=== PATIENT | male | born 1950 ===

== ENCOUNTER 2018-06-16 06:42 | Inpatient (IN) ==
--- NOTE | 2018-06-16 06:48 | ED ---
HPI General Chief Complaint: STEMI Alert Stated Complaint: Stemi Time Seen by Provider: 06/16/18 06:45 Source: patient and EMS Mode of arrival: EMS History of Present Illness HPI narrative: Chest pain stated that he has been having chest pain for the past week or so. Neighbor called paramedics came to pick them up. Patient was clinical combative with them and because of low O2 sats to try to put a CPAP mask but he was not letting them place it due to being claustrophobic. On arrival blood pressure was 2 6/144 respirations at 28% was placed on a nonrebreather 100% saturation was given nitro sublingual for his elevated BP. Paramedics have given aspirin nitro and Lasix en route. MD complaint: chest pain STEMI Alert: Yes Onset (ago): unknown Time: 06:41 Duration: constant Onset: during rest Pain location: substernal Severity: severe Severity scale (1-10): 10 Quality: ripping Pain radiation: neck Relieving factors: nothing Exacerbating factors: exertion Context: other (chest pain for the past week) Associated symptoms: diaphoresis and dyspnea Treatments prior to arrival chest pain: aspirin, nitroglycerin, oxygen and other (LAsix 70mg IV) Related Data Home Medications Medication Instructions Recorded Confirmed No Known Home Medications 06/16/18 06/16/18 Allergies Allergy/AdvReac Type Severity Reaction Status Date / Time No Known Allergies Allergy Verified 06/16/18 06:46 Review of Systems ROS: all other systems reviewed are negative Cardiovascular Reports chest pain, Reports chest pain at rest, Reports diaphoresis, Reports rapid heart rate, Reports pedal edema and Reports palpitations Respiratory Reports dyspnea on exertion PMFSH History History Provided By: Patient and Engineer And Geologist / EMT Medical History Medical History Sciatica (Acute) Tobacco abuse (Acute) Surgical History Surgical History Right wrist injury (Acute) Family History Family History Other Family history non-contributory Parents Social History Social History Substance History: Past History (Prior alcohol use 1 L of vodka a day, last use 3 or 4 months ago) Second Hand Smoke Exposure: Yes Smoking Status: Current every day smoker Tobacco Type: Cigarettes Packs Per Day: 1 Cigarettes Per Day: 20.0 How Often Do You Have a Drink Containing Alcohol: Never Recent Travel in [facility] within the Last 8 Weeks: No Recent Out of Country Travel within the Last 8 Weeks: No Exam Narrative Exam Narrative: GENERAL: Alert and oriented in severe distress. Pale SKIN: Focused skin assessment . Cold and clammy HEAD: Atraumatic. Normocephalic. EYES: Pupils equal and round. No scleral icterus. No injection or drainage. ENT: No nasal bleeding or discharge. Mucous membranes pink and moist. NECK: Trachea midline. No JVD. CARDIOVASCULAR: Sinus tachycardia with regular rhythm. No murmur appreciated. RESPIRATORY: No accessory muscle use. Tachypneic clear to auscultation. Breath sounds equal bilaterally. GASTROINTESTINAL: Abdomen soft, non-tender, nondistended. Hepatic and splenic margins not palpable. MUSCULOSKELETAL: No obvious deformities. No clubbing. No cyanosis. No edema. NEUROLOGICAL: Awake and alert. No obvious cranial nerve deficits. Motor grossly within normal limits. Normal speech. PSYCHIATRIC: Appropriate mood and affect; insight and judgment normal. Course Hospital Course: Patient arrived at 641 reviewed the EKG was called a STEMI alertThere is a troponin there because I did not see that I did not order one of my interventional cardiology was consulted and patient was taken to the Cartographic Engineer at 6:44. Aspirin Lasix and nitro were given on route. Due to elevated BP here patient was given a sublingual nitro with did not want to delay disposition to Cartographic Engineer and he was transferred immediately upstairs after consulting with Dr. Sadler interventional cardiology. Initial Documented Vital Signs Pulse Rate 130 H 06/16/18 06:44 Respiratory Rate 28 H 06/16/18 06:44 Blood Pressure 206/144 H 06/16/18 06:44 Pulse Oximetry 100 06/16/18 06:44 Last Documented Vital Signs Temperature 98.4 F 06/16/18 15:00 Pulse Rate 88 06/16/18 15:00 Respiratory Rate 20 06/16/18 17:22 Blood Pressure 136/78 06/16/18 15:00 Pulse Oximetry 99 06/16/18 16:10 Critical Care Time Critical Care Time: Yes Total Critical Care Time: 10 Attestation: Aggregate critical care time was 10 minutes. Time to perform other separately billable procedures was not included in the critical care time. My time did not include minutes spent treating any other patients simultaneously or on activities that did not directly contribute to the patient's treatment. The services I provided to this patient were to treat and/or prevent clinically significant deterioration that could result in: Permanent disability loss of current living style and cardiac arrest I provided critical care services requiring my management, as noted below: Chart data review, documentation time, medication orders and management, vital sign assessments/reviewing monitor data, ordering and reviewing lab tests, ordering and interpreting/reviewing x-rays and diagnostic studies, care of the patient and discussion of the patient with the admitting physicians. Medical Decision Making MDM Narrative Medical decision making narrative: STEMI alert taken to the lab within 7 minutes of arrival Medical Screen Exam Complete: Yes Emergency Medical Condition: Yes Medical Records Medical records reviewed: Yes I reviewed the patient's medical records. Lab Data Lab results reviewed: Yes I reviewed the patient's lab results. Result diagrams: 06/16/18 09:40 06/16/18 09:40 Lab Results 06/16/18 06/16/18 06/16/18 Range/Units 06:50 06:50 06:50 WBC 8.3 (4.0-11.0) th/mm3 RBC 4.37 L (4.50-5.90) mil/mm3 Hgb 14.3 (13.0-17.0) gm/dL POC Hgb (Calc) 14.6 (13.0-17.0) g/dL Hct 44.2 (39.0-51.0) % POC Hct 43.0 (39-51.0) % MCV 101.1 H (80.0-100.0) fL MCH 32.7 (27.0-34.0) pg MCHC 32.4 (32.0-36.0) % RDW 14.3 (11.6-17.2) % Plt Count 209 (150-450) th/mm3 MPV 10.6 (7.0-11.0) fL Prelim Diff (Auto) Neut % (Auto) 56.8 (16.0-70.0) % Lymph % (Auto) 32.6 (9.0-44.0) % [place] % (Auto) 6.2 (0.0-8.0) % Eos % (Auto) 3.1 (0.0-4.0) % Baso % (Auto) 1.3 (0.0-2.0) % Neut # (Auto) 4.7 (1.8-7.7) th/mm3 Lymph # (Auto) 2.7 (1.0-4.8) th/mm3 [place] # (Auto) 0.5 (0.0-0.9) th/mm3 Eos # (Auto) 0.3 (0.0-0.4) th/mm3 Baso # (Auto) 0.1 (0.0-0.2) th/mm3 WBC Differential . Seg Neuts % (Manual) (16-70) % Band Neuts % (Manual) (0-6) % Lymphocytes % (Manual) (9-44) % Monocytes % (Manual) (0-8) % Metamyelocytes % (Man) (0-1) % Promyelocytes % (Man) (0-0) % Abs Neuts (Manual) (1.8-7.7) th/mm3 Differential Comment Auto diff final Platelet Estimate (Normal) Platelet Morphology (Normal) Ovalocytes (None) PT 10.4 (9.8-11.6) sec INR 1.0 Ratio APTT 24.1 L (24.3-30.1) sec Puncture Site Patient Temperature O2 Saturation (90-100) % ABG pH (7.380-7.420) ABG pCO2 (38-42) mmHg ABG pO2 (61-120) mmHG ABG HCO3 (22-26) mmol/L ABG O2 Content (12.0-20.0) Vol % ABG Base Excess (-2-2) mmol/L ABG Methemoglobin (0-2) % Hemoglobin (12.0-16.0) G/DL Carboxyhemoglobin (0-4) % O2 Delivery Device Liter Flow L/M Vent Setting Inspired O2 % Critical Value POC Sodium 141 (137-144) mmol/L Sodium (136-145) meq/L POC Potassium 4.6 (3.6-5.0) mmol/L Potassium (3.5-5.1) meq/L POC Chloride 109 (102-111) mmol/L Chloride (98-107) meq/L Carbon Dioxide (21.0-32.0) meq/L Anion Gap (5-15) meq/L POC BUN 26 H (5-21) mg/dL BUN (7-18) mg/dL Creatinine (0.60-1.30) mg/dL POC Creatinine 1.4 H (0.6-1.3) mg/dL Estimated GFR (>89) mL/min POC Glucose 232 H (68-110) mg/dL Random Glucose (74-106) mg/dL Hemoglobin A1c (4.3-6.0) % Lactic Acid (0.4-2.0) mmol/L Calcium 8.2 L (8.5-10.1) mg/dL Phosphorus (2.5-4.9) mg/dL Magnesium 2.3 (1.5-2.5) mg/dL Total Bilirubin (0.2-1.0) mg/dL AST (15-37) U/L ALT (12-78) U/L Alkaline Phosphatase (45-117) U/L Total Creatine Kinase 138 (39-308) U/L CK-MB (CK-2) 2.4 (0.5-3.6) ng/mL Troponin I 0.47 H (0.02-0.05) ng/mL B-Natriuretic Peptide (0-100) pg/mL Total Protein (6.4-8.2) g/dL Albumin (3.4-5.0) g/dL Triglycerides Cholesterol LDL Cholesterol, Calc HDL Cholesterol Cholesterol/HDL Ratio Vitamin B12 TSH Urine Eosinophils (None Seen) /HPF Ur Random Creatinine (27-300) mg/dL Ur Random Sodium meq/L 06/16/18 06/16/18 06/16/18 Range/Units 06:50 07:12 09:40 WBC (4.0-11.0) th/mm3 RBC (4.50-5.90) mil/mm3 Hgb (13.0-17.0) gm/dL POC Hgb (Calc) (13.0-17.0) g/dL Hct (39.0-51.0) % POC Hct (39-51.0) % MCV (80.0-100.0) fL MCH (27.0-34.0) pg MCHC (32.0-36.0) % RDW (11.6-17.2) % Plt Count (150-450) th/mm3 MPV (7.0-11.0) fL Prelim Diff (Auto) Neut % (Auto) (16.0-70.0) % Lymph % (Auto) (9.0-44.0) % [place] % (Auto) (0.0-8.0) % Eos % (Auto) (0.0-4.0) % Baso % (Auto) (0.0-2.0) % Neut # (Auto) (1.8-7.7) th/mm3 Lymph # (Auto) (1.0-4.8) th/mm3 [place] # (Auto) (0.0-0.9) th/mm3 Eos # (Auto) (0.0-0.4) th/mm3 Baso # (Auto) (0.0-0.2) th/mm3 WBC Differential Seg Neuts % (Manual) (16-70) % Band Neuts % (Manual) (0-6) % Lymphocytes % (Manual) (9-44) % Monocytes % (Manual) (0-8) % Metamyelocytes % (Man) (0-1) % Promyelocytes % (Man) (0-0) % Abs Neuts (Manual) (1.8-7.7) th/mm3 Differential Comment Platelet Estimate (Normal) Platelet Morphology (Normal) Ovalocytes (None) PT (9.8-11.6) sec INR Ratio APTT (24.3-30.1) sec Puncture Site Art line Patient Temperature 98.6 O2 Saturation 94 (90-100) % ABG pH 7.23 L* (7.380-7.420) ABG pCO2 45 H (38-42) mmHg ABG pO2 118 (61-120) mmHG ABG HCO3 18 L (22-26) mmol/L ABG O2 Content 17.4 (12.0-20.0) Vol % ABG Base Excess -8.0 L (-2-2) mmol/L ABG Methemoglobin 1.4 (0-2) % Hemoglobin 13.0 (12.0-16.0) G/DL Carboxyhemoglobin 1.2 (0-4) % O2 Delivery Device Nrb Liter Flow 15.00 L/M Vent Setting Inspired O2 % Critical Value Yes POC Sodium (137-144) mmol/L Sodium (136-145) meq/L POC Potassium (3.6-5.0) mmol/L Potassium (3.5-5.1) meq/L POC Chloride (102-111) mmol/L Chloride (98-107) meq/L Carbon Dioxide (21.0-32.0) meq/L Anion Gap (5-15) meq/L POC BUN (5-21) mg/dL BUN (7-18) mg/dL Creatinine (0.60-1.30) mg/dL POC Creatinine (0.6-1.3) mg/dL Estimated GFR (>89) mL/min POC Glucose (68-110) mg/dL Random Glucose (74-106) mg/dL Hemoglobin A1c (4.3-6.0) % Lactic Acid (0.4-2.0) mmol/L Calcium (8.5-10.1) mg/dL Phosphorus (2.5-4.9) mg/dL Magnesium (1.5-2.5) mg/dL Total Bilirubin (0.2-1.0) mg/dL AST (15-37) U/L ALT (12-78) U/L Alkaline Phosphatase (45-117) U/L Total Creatine Kinase (39-308) U/L CK-MB (CK-2) (0.5-3.6) ng/mL Troponin I (0.02-0.05) ng/mL B-Natriuretic Peptide 4327 H (0-100) pg/mL Total Protein (6.4-8.2) g/dL Albumin (3.4-5.0) g/dL Triglycerides Cancelled Cholesterol Cancelled LDL Cholesterol, Calc Cancelled HDL Cholesterol Cancelled Cholesterol/HDL Ratio Cancelled Vitamin B12 TSH Urine Eosinophils (None Seen) /HPF Ur Random Creatinine (27-300) mg/dL Ur Random Sodium meq/L 06/16/18 06/16/18 06/16/18 Range/Units 09:40 09:40 09:40 WBC (4.0-11.0) th/mm3 RBC (4.50-5.90) mil/mm3 Hgb (13.0-17.0) gm/dL POC Hgb (Calc) (13.0-17.0) g/dL Hct (39.0-51.0) % POC Hct (39-51.0) % MCV (80.0-100.0) fL MCH (27.0-34.0) pg MCHC (32.0-36.0) % RDW (11.6-17.2) % Plt Count (150-450) th/mm3 MPV (7.0-11.0) fL Prelim Diff (Auto) Neut % (Auto) (16.0-70.0) % Lymph % (Auto) (9.0-44.0) % [place] % (Auto) (0.0-8.0) % Eos % (Auto) (0.0-4.0) % Baso % (Auto) (0.0-2.0) % Neut # (Auto) (1.8-7.7) th/mm3 Lymph # (Auto) (1.0-4.8) th/mm3 [place] # (Auto) (0.0-0.9) th/mm3 Eos # (Auto) (0.0-0.4) th/mm3 Baso # (Auto) (0.0-0.2) th/mm3 WBC Differential Seg Neuts % (Manual) (16-70) % Band Neuts % (Manual) (0-6) % Lymphocytes % (Manual) (9-44) % Monocytes % (Manual) (0-8) % Metamyelocytes % (Man) (0-1) % Promyelocytes % (Man) (0-0) % Abs Neuts (Manual) (1.8-7.7) th/mm3 Differential Comment Platelet Estimate (Normal) Platelet Morphology (Normal) Ovalocytes (None) PT (9.8-11.6) sec INR Ratio APTT (24.3-30.1) sec Puncture Site Patient Temperature O2 Saturation (90-100) % ABG pH (7.380-7.420) ABG pCO2 (38-42) mmHg ABG pO2 (61-120) mmHG ABG HCO3 (22-26) mmol/L ABG O2 Content (12.0-20.0) Vol % ABG Base Excess (-2-2) mmol/L ABG Methemoglobin (0-2) % Hemoglobin (12.0-16.0) G/DL Carboxyhemoglobin (0-4) % O2 Delivery Device Liter Flow L/M Vent Setting Inspired O2 % Critical Value POC Sodium (137-144) mmol/L Sodium (136-145) meq/L POC Potassium (3.6-5.0) mmol/L Potassium (3.5-5.1) meq/L POC Chloride (102-111) mmol/L Chloride (98-107) meq/L Carbon Dioxide (21.0-32.0) meq/L Anion Gap (5-15) meq/L POC BUN (5-21) mg/dL BUN (7-18) mg/dL Creatinine (0.60-1.30) mg/dL POC Creatinine (0.6-1.3) mg/dL Estimated GFR (>89) mL/min POC Glucose (68-110) mg/dL Random Glucose (74-106) mg/dL Hemoglobin A1c 6.0 (4.3-6.0) % Lactic Acid (0.4-2.0) mmol/L Calcium (8.5-10.1) mg/dL Phosphorus (2.5-4.9) mg/dL Magnesium (1.5-2.5) mg/dL Total Bilirubin (0.2-1.0) mg/dL AST (15-37) U/L ALT (12-78) U/L Alkaline Phosphatase (45-117) U/L Total Creatine Kinase (39-308) U/L CK-MB (CK-2) (0.5-3.6) ng/mL Troponin I (0.02-0.05) ng/mL B-Natriuretic Peptide (0-100) pg/mL Total Protein (6.4-8.2) g/dL Albumin (3.4-5.0) g/dL Triglycerides 97 Cholesterol 128 LDL Cholesterol, Calc 47 HDL Cholesterol 61.6 H Cholesterol/HDL Ratio 2.07 Vitamin B12 Cancelled 362 TSH Cancelled 3.290 Urine Eosinophils (None Seen) /HPF Ur Random Creatinine (27-300) mg/dL Ur Random Sodium meq/L 06/16/18 06/16/18 06/16/18 Range/Units 09:40 09:40 09:40 WBC 16.5 H D (4.0-11.0) th/mm3 RBC 4.29 L (4.50-5.90) mil/mm3 Hgb 14.1 (13.0-17.0) gm/dL POC Hgb (Calc) (13.0-17.0) g/dL Hct 41.9 (39.0-51.0) % POC Hct (39-51.0) % MCV 97.7 (80.0-100.0) fL MCH 32.9 (27.0-34.0) pg MCHC 33.7 (32.0-36.0) % RDW 13.9 (11.6-17.2) % Plt Count 221 (150-450) th/mm3 MPV 10.5 (7.0-11.0) fL Prelim Diff (Auto) Slide review pending Neut % (Auto) 83.5 H (16.0-70.0) % Lymph % (Auto) 8.7 L (9.0-44.0) % [place] % (Auto) 7.3 (0.0-8.0) % Eos % (Auto) 0.2 (0.0-4.0) % Baso % (Auto) 0.3 (0.0-2.0) % Neut # (Auto) 13.8 H (1.8-7.7) th/mm3 Lymph # (Auto) 1.4 (1.0-4.8) th/mm3 [place] # (Auto) 1.2 H (0.0-0.9) th/mm3 Eos # (Auto) 0.0 (0.0-0.4) th/mm3 Baso # (Auto) 0.1 (0.0-0.2) th/mm3 WBC Differential Manual diff final Seg Neuts % (Manual) 84 H (16-70) % Band Neuts % (Manual) 1 (0-6) % Lymphocytes % (Manual) 5 L (9-44) % Monocytes % (Manual) 8 (0-8) % Metamyelocytes % (Man) 1 (0-1) % Promyelocytes % (Man) 1 H (0-0) % Abs Neuts (Manual) 14.4 H (1.8-7.7) th/mm3 Differential Comment . Platelet Estimate Normal (Normal) Platelet Morphology Clumped H (Normal) Ovalocytes 1+ H (None) PT (9.8-11.6) sec INR Ratio APTT (24.3-30.1) sec Puncture Site Patient Temperature O2 Saturation (90-100) % ABG pH (7.380-7.420) ABG pCO2 (38-42) mmHg ABG pO2 (61-120) mmHG ABG HCO3 (22-26) mmol/L ABG O2 Content (12.0-20.0) Vol % ABG Base Excess (-2-2) mmol/L ABG Methemoglobin (0-2) % Hemoglobin (12.0-16.0) G/DL Carboxyhemoglobin (0-4) % O2 Delivery Device Liter Flow L/M Vent Setting Inspired O2 % Critical Value POC Sodium (137-144) mmol/L Sodium 138 (136-145) meq/L POC Potassium (3.6-5.0) mmol/L Potassium 3.8 (3.5-5.1) meq/L POC Chloride (102-111) mmol/L Chloride 104 (98-107) meq/L Carbon Dioxide 23.8 (21.0-32.0) meq/L Anion Gap 10 (5-15) meq/L POC BUN (5-21) mg/dL BUN 24 H (7-18) mg/dL Creatinine 1.67 H (0.60-1.30) mg/dL POC Creatinine (0.6-1.3) mg/dL Estimated GFR 36 L (>89) mL/min POC Glucose (68-110) mg/dL Random Glucose 192 H (74-106) mg/dL Hemoglobin A1c (4.3-6.0) % Lactic Acid 3.0 H (0.4-2.0) mmol/L Calcium 8.3 L (8.5-10.1) mg/dL Phosphorus 4.4 (2.5-4.9) mg/dL Magnesium 2.1 (1.5-2.5) mg/dL Total Bilirubin 0.5 (0.2-1.0) mg/dL AST 36 (15-37) U/L ALT 21 (12-78) U/L Alkaline Phosphatase 86 (45-117) U/L Total Creatine Kinase (39-308) U/L CK-MB (CK-2) (0.5-3.6) ng/mL Troponin I (0.02-0.05) ng/mL B-Natriuretic Peptide (0-100) pg/mL Total Protein 7.6 (6.4-8.2) g/dL Albumin 3.1 L (3.4-5.0) g/dL Triglycerides Cholesterol LDL Cholesterol, Calc HDL Cholesterol Cholesterol/HDL Ratio Vitamin B12 TSH Urine Eosinophils (None Seen) /HPF Ur Random Creatinine (27-300) mg/dL Ur Random Sodium meq/L 09/06/16/18 06/16/18 Range/Units 10:10 12:10 15:00 WBC (4.0-11.0) th/mm3 RBC (4.50-5.90) mil/mm3 Hgb (13.0-17.0) gm/dL POC Hgb (Calc) (13.0-17.0) g/dL Hct (39.0-51.0) % POC Hct (39-51.0) % MCV (80.0-100.0) fL MCH (27.0-34.0) pg MCHC (32.0-36.0) % RDW (11.6-17.2) % Plt Count (150-450) th/mm3 MPV (7.0-11.0) fL Prelim Diff (Auto) Neut % (Auto) (16.0-70.0) % Lymph % (Auto) (9.0-44.0) % [place] % (Auto) (0.0-8.0) % Eos % (Auto) (0.0-4.0) % Baso % (Auto) (0.0-2.0) % Neut # (Auto) (1.8-7.7) th/mm3 Lymph # (Auto) (1.0-4.8) th/mm3 [place] # (Auto) (0.0-0.9) th/mm3 Eos # (Auto) (0.0-0.4) th/mm3 Baso # (Auto) (0.0-0.2) th/mm3 WBC Differential Seg Neuts % (Manual) (16-70) % Band Neuts % (Manual) (0-6) % Lymphocytes % (Manual) (9-44) % Monocytes % (Manual) (0-8) % Metamyelocytes % (Man) (0-1) % Promyelocytes % (Man) (0-0) % Abs Neuts (Manual) (1.8-7.7) th/mm3 Differential Comment Platelet Estimate (Normal) Platelet Morphology (Normal) Ovalocytes (None) PT (9.8-11.6) sec INR Ratio APTT (24.3-30.1) sec Puncture Site Beth Campos Patient Temperature 98.6 98.6 O2 Saturation 97 96 (90-100) % ABG pH 7.23 L* 7.34 L (7.380-7.420) ABG pCO2 53 H* 40 (38-42) mmHg ABG pO2 359 H 129 H (61-120) mmHG ABG HCO3 21 L 21 L (22-26) mmol/L ABG O2 Content 19.7 17.8 (12.0-20.0) Vol % ABG Base Excess -4.9 L -3.9 L (-2-2) mmol/L ABG Methemoglobin 1.4 1.6 (0-2) % Hemoglobin 13.8 13.1 (12.0-16.0) G/DL Carboxyhemoglobin 0.5 0.8 (0-4) % O2 Delivery Device Ventilator Ventilator Liter Flow L/M Vent Setting See comments See comments Inspired O2 100 60 % Critical Value Yes No POC Sodium (137-144) mmol/L Sodium (136-145) meq/L POC Potassium (3.6-5.0) mmol/L Potassium (3.5-5.1) meq/L POC Chloride (102-111) mmol/L Chloride (98-107) meq/L Carbon Dioxide (21.0-32.0) meq/L Anion Gap (5-15) meq/L POC BUN (5-21) mg/dL BUN (7-18) mg/dL Creatinine (0.60-1.30) mg/dL POC Creatinine (0.6-1.3) mg/dL Estimated GFR (>89) mL/min POC Glucose (68-110) mg/dL Random Glucose (74-106) mg/dL Hemoglobin A1c (4.3-6.0) % Lactic Acid (0.4-2.0) mmol/L Calcium (8.5-10.1) mg/dL Phosphorus (2.5-4.9) mg/dL Magnesium (1.5-2.5) mg/dL Total Bilirubin (0.2-1.0) mg/dL AST (15-37) U/L ALT (12-78) U/L Alkaline Phosphatase (45-117) U/L Total Creatine Kinase (39-308) U/L CK-MB (CK-2) (0.5-3.6) ng/mL Troponin I (0.02-0.05) ng/mL B-Natriuretic Peptide (0-100) pg/mL Total Protein (6.4-8.2) g/dL Albumin (3.4-5.0) g/dL Triglycerides Cholesterol LDL Cholesterol, Calc HDL Cholesterol Cholesterol/HDL Ratio Vitamin B12 TSH Urine Eosinophils (None Seen) /HPF Ur Random Creatinine 39 (27-300) mg/dL Ur Random Sodium 93 meq/L 06/16/18 06/16/18 Range/Units 15:00 16:11 WBC (4.0-11.0) th/mm3 RBC (4.50-5.90) mil/mm3 Hgb (13.0-17.0) gm/dL POC Hgb (Calc) (13.0-17.0) g/dL Hct (39.0-51.0) % POC Hct (39-51.0) % MCV (80.0-100.0) fL MCH (27.0-34.0) pg MCHC (32.0-36.0) % RDW (11.6-17.2) % Plt Count (150-450) th/mm3 MPV (7.0-11.0) fL Prelim Diff (Auto) Neut % (Auto) (16.0-70.0) % Lymph % (Auto) (9.0-44.0) % [place] % (Auto) (0.0-8.0) % Eos % (Auto) (0.0-4.0) % Baso % (Auto) (0.0-2.0) % Neut # (Auto) (1.8-7.7) th/mm3 Lymph # (Auto) (1.0-4.8) th/mm3 [place] # (Auto) (0.0-0.9) th/mm3 Eos # (Auto) (0.0-0.4) th/mm3 Baso # (Auto) (0.0-0.2) th/mm3 WBC Differential Seg Neuts % (Manual) (16-70) % Band Neuts % (Manual) (0-6) % Lymphocytes % (Manual) (9-44) % Monocytes % (Manual) (0-8) % Metamyelocytes % (Man) (0-1) % Promyelocytes % (Man) (0-0) % Abs Neuts (Manual) (1.8-7.7) th/mm3 Differential Comment Platelet Estimate (Normal) Platelet Morphology (Normal) Ovalocytes (None) PT (9.8-11.6) sec INR Ratio APTT (24.3-30.1) sec Puncture Site Patient Temperature O2 Saturation (90-100) % ABG pH (7.380-7.420) ABG pCO2 (38-42) mmHg ABG pO2 (61-120) mmHG ABG HCO3 (22-26) mmol/L ABG O2 Content (12.0-20.0) Vol % ABG Base Excess (-2-2) mmol/L ABG Methemoglobin (0-2) % Hemoglobin (12.0-16.0) G/DL Carboxyhemoglobin (0-4) % O2 Delivery Device Liter Flow L/M Vent Setting Inspired O2 % Critical Value POC Sodium (137-144) mmol/L Sodium (136-145) meq/L POC Potassium (3.6-5.0) mmol/L Potassium (3.5-5.1) meq/L POC Chloride (102-111) mmol/L Chloride (98-107) meq/L Carbon Dioxide (21.0-32.0) meq/L Anion Gap (5-15) meq/L POC BUN (5-21) mg/dL BUN (7-18) mg/dL Creatinine (0.60-1.30) mg/dL POC Creatinine (0.6-1.3) mg/dL Estimated GFR (>89) mL/min POC Glucose 136 H (68-110) mg/dL Random Glucose (74-106) mg/dL Hemoglobin A1c (4.3-6.0) % Lactic Acid (0.4-2.0) mmol/L Calcium (8.5-10.1) mg/dL Phosphorus (2.5-4.9) mg/dL Magnesium (1.5-2.5) mg/dL Total Bilirubin (0.2-1.0) mg/dL AST (15-37) U/L ALT (12-78) U/L Alkaline Phosphatase (45-117) U/L Total Creatine Kinase (39-308) U/L CK-MB (CK-2) (0.5-3.6) ng/mL Troponin I (0.02-0.05) ng/mL B-Natriuretic Peptide (0-100) pg/mL Total Protein (6.4-8.2) g/dL Albumin (3.4-5.0) g/dL Triglycerides Cholesterol LDL Cholesterol, Calc HDL Cholesterol Cholesterol/HDL Ratio Vitamin B12 TSH Urine Eosinophils None seen (None Seen) /HPF Ur Random Creatinine (27-300) mg/dL Ur Random Sodium meq/L Imaging Data Radiologist's impression: Abdomen/Bladder Ultrasound 06/16/18 00:00 CONCLUSION: The kidneys are at the lower limits for normal in size. Otherwise, no abnormality is identified. There is no hydronephrosis. Chest X-Ray 06/16/18 00:00 CONCLUSION: 1. Cardiomegaly with pulmonary edema pattern. Chest X-Ray 06/16/18 10:19 CONCLUSION: 1. ETT in good position. 2. Left IJ central line with tip in the very proximal SVC. No pneumothorax. 3. Persistent pulmonary edema pattern. ECG Data EKG Prior to Arrival: Yes Attestation: I personally reviewed and interpreted this ECG as follows: Interpretation: Elevation NE on anterior leads V3 V4. Suggestive of anterior NE. Discharge Plan Discharge Disposition Patient Disposition: 30 Still Patient Discharge Condition Condition: Critical Discharge Details Diagnosis: ST elevation (STEMI) myocardial infarction Physicians Team ED Provider: Rivas Zimmerman Primary Care Provider: Primary Care Physici,No Attending Provider: Lester Sadler Other Providers: Lester Sadler ; Giovany Wilkes ; Diane Ingram Status ED Status: Left Department Discharge Information Discharge Date/Time: 06/16/18 07:21
[2018-06-16] MEDS ORDERED: Sod Chloride 0.9% Inj 1,000 ML IV.SIG SCH (07:00)
[2018-06-16 07:02] LABS: Baso # (Auto) 0.1 th/mm3 (0.0-0.2); Baso % (Auto) 1.3 % (0.0-2.0); Eos # (Auto) 0.3 th/mm3 (0.0-0.4); Eos % (Auto) 3.1 % (0.0-4.0); Hematocrit 44.2 % (39.0-51.0); Hemoglobin 14.3 gm/dL (13.0-17.0); Lymph # (Auto) 2.7 th/mm3 (1.0-4.8); Lymph % (Auto) 32.6 % (9.0-44.0); Mean Corpuscular HGB Conc 32.4 % (32.0-36.0); Mean Corpuscular Hemoglobin 32.7 pg (27.0-34.0); Mean Corpuscular Volume 101.1 fL (80.0-100.0); Mean Platelet Volume 10.6 fL (7.0-11.0); Mono # (Auto) 0.5 th/mm3 (0.0-0.9); Mono % (Auto) 6.2 % (0.0-8.0); Neut # (Auto) 4.7 th/mm3 (1.8-7.7); Neut % (Auto) 56.8 % (16.0-70.0); Platelet Count 209 th/mm3 (150-450); Red Blood Count 4.37 mil/mm3 (4.50-5.90); Red Cell Distribution Width 14.3 % (11.6-17.2); White Blood Count 8.3 th/mm3 (4.0-11.0)
[2018-06-16] MEDS ORDERED: Nitroglycerin Drip Premix 50 MG/250 ML BOTTLE ONE (07:12)
[2018-06-16 07:16] LABS: Activated Partial Thrombo Time 24.1 sec (24.3-30.1); Prothrombin Time 10.4 sec (9.8-11.6)
[2018-06-16] MEDS ORDERED: Clevidipine Inj 25 MG/50 ML VIAL ONE (07:21)
[2018-06-16 07:27] LABS: Calcium 8.2 mg/dL (8.5-10.1); Troponin I 0.47 ng/mL (0.02-0.05)
[2018-06-16 07:28] LABS: Creatine Kinase 138 U/L (39-308); Magnesium 2.3 mg/dL (1.5-2.5)
[2018-06-16 07:31] LABS: ABG PCO2 45 mmHg (38-42); ABG PO2 118 mmHG (61-120)
[2018-06-16 07:40] LABS: Creatine Kinase MB 2.4 ng/mL (0.5-3.6)
--- NOTE | 2018-06-16 08:16 | CATHPROC ---
Compression Kinetics HIS Report Study Information Study Number Admission Scheduled Start Study Start [id number] Jun 16 2018 6:42AM 06/16/2018 Jun 16 2018 6:56AM [place] [facility] Cardiac Catheterization Admit Source Facility Department Emergency department [facility] - Buyer Broker Physician and Clinical Staff Initial Lester Salcedo Petrol Tanker Driverjosue Moran RN, Rodriguez Petrol Tanker DriverAlexandru Moctezuma,YAEL Recorder Bessy Dey,RT(R) Scrub Dionna Menjivar,RT(R) Procedures Performed Procedure Location (Site) Vessel Name Angiogram LV LV Ventricle Coronary Angiograms LCA Left Coronary Coronary Angiograms RCA Right Coronary L Heart Cath Wire insertion Fem Art (right) Femoral Art Equipment Time Chair Description Size Mfg Part Number Used/Scraped [id number] 07:29 [employer] WIRE, ASAHI GRANDSLAM 180CM 180CM Used *[id number] WIRE, BALANCE MIDDLEWEIGHT [id number] 07:23 R[employer]RIGUEZ [employer] 190CM Used 190CM *[id number] TRANSDUCER, TRUWAVE [id number] 07:02 GRANADOS MARTIN * Used W/STOCKCOCK *[id number] [id number] *[id number] [id number] *[id number] [id number] *[id number] PIGTAIL ANG. 145 INFINITI 534-652S CATHETER *[id number] PIGTAIL ANG. 145 INFINITI 534-652S CATHETER *[id number] *[id number] 07:52 DAIG/ST. AMARI MEDICAL ANGIOSEAL, FR6 VIP FR 6 Used *[id number] 07:02 Shopping Buddy BLANKET,WARM AIR CCL * Used *[id number] 07:02 Shopping Buddy PACK, CCL CUSTOM * Used *[id number] 07:02 DermApproved PACER PEN, SKIN DUAL W/ RULER * Used *[id number] 07:32 MEDTRONIC BALLOON, 2.5 X 12MM EUPHORA 12MM Used *[id number] 07:02 ReactX MEDICAL SHEATH, FR6.5 PRELUDE 11CM FR 6.5 038ACT Used *[id number] 07:02 ReactX MEDICAL WIRE, 3MMJ .035 180CM 180CM Used *[id number] 07:02 NAMIC MANIFOLD, 4 PORT * Used *[id number] 07:02 NYCOMED OMNIPAQUE, 350 MG, 150ML 150ML [id number] Used 07:50 NYCOMED OMNIPAQUE, 350 MG, 50ML 50ML [id number] Used Equipment Model, Serial, Lot Number and Expiration Data Description Model Number Serial Number Lot Number Expiration Date LISSA NAJERA [id number] 10-21-2018 History: Allergies Allergy Reaction No Known Allergies History: Other Current Smoker Yes Labs Hgb (g/dl) Hct (%) RBC (MIL/MM3) WBC (l/cumm) Platelets (thousands) 11.60-17.00 35.00-51.00 4.00-5.90 4.00-11.00 150.00-450.00 14.3 42.2 4.3 8.3 209 Glucose (mg/dl) BUN (mg/dl) Creatinine (mg/dl) BUN:Creatinine (1:x) 74.00-106.00 7.00-18.00 0.50-1.30 10.00-20.00 232 26 1.4 18.6 Na (meq/l) K (meq/l) 136.00-145.00 3.50-5.10 141 4.6 Medication Medication Total Dose (Bolus/Oral) Medication Total Dosage/Unit 1% XYLOCAINE 20 mL ANGIOMAX BOLUS 10.8 mL NTG (TRIDIL) 5 mg Medications (Bolus/Oral) Medication Time Given Dosage/Unit Administered By Reason 1% XYLOCAINE 06/16/2018 7:15:16 AM 20 mL Lester Sadler 20 mL 1% XYLOCAINE given in lab by Lester Sadler in Right Groin via Subcutaneous. Ordered by Lester Sadler. NTG (TRIDIL) 06/16/2018 7:15:33 AM 5 mg Rodriguez Moran RN 5 mg NTG (TRIDIL) given in lab by Rodriguez Moran RN in Left Hand via Peripheral IV. Ordered by Lester Sadler. ANGIOMAX BOLUS 06/16/2018 7:22:50 AM 10.8 mL Rodriguez Moran RN 10.8 mL ANGIOMAX BOLUS given in lab by Rodriguez Moran RN via Peripheral IV. Ordered by Lester Sadler. Medication (Drip) Medication Time Given Dosage/Unit Concentration/Unit Diluent (ml) Solutio n ANGIOMAX DRIP 06/16/2018 7:26:10 AM 1.733 mg/kg/hr 250 mg 50 NaCl .9 1.733 mg/kg/hr ANGIOMAX DRIP given in lab by Rdoriguez Moran RN via Peripheral IV. Pump/Drip Flow = 25.2 ml/hr using NaCl .9 with a concentration of 250 mg in 50 ml. Ordered by Lester Sadler. ANGIOMAX DRIP 06/16/2018 7:48:33 AM 25.2 mL/hr mL 0 STOPPED 25.2 mL/hr ANGIOMAX DRIP STOPPED given in lab by Rodriguez Moran RN. Pump/Drip Flow = 0 ml/hr using [Laly ution Name]. Ordered by Lester Sadler. CLEVIPREX 06/16/2018 7:20:43 AM 2 mg/hr 50 mg 100 2 mg/hr CLEVIPREX given in lab by Rodriguez Moran RN. Pump/Drip Flow = 4 ml/hr using [Solution Name] wit h a concentration of 50 mg in 100 ml. Ordered by Lester Sadler. IV Solutions 06/16/2018 6:58:41 AM 50 mL (IV) NaCl .9 IV Solutions given in lab by Rodriguez Moran RN in Left Hand via Peripheral IV. Pump/Drip Flow using NaC l .9. Initial Case Assessment Cardiovascular Edema Present Skin color Skin Moderate Normal Warm Dry Circulatory - Right Pulses Dorsalis Pedis Femoral 2 2 Scale (0,1,2,3,4,d) Circulatory - Left Pulses Dorsalis Pedis Femoral 2 2 Scale (0,1,2,3,4,d) Neurological State Oriented to time-place- Alert Moves all extremities person Final Case Assessment Cardiovascular HR NIBP 121 143/100 Edema Present Skin color Skin Moderate Normal Warm Dry Circulatory - Right Pulses Dorsalis Pedis Femoral 2 2 Scale (0,1,2,3,4,d) Circulatory - Left Pulses Dorsalis Pedis Femoral 2 2 Scale (0,1,2,3,4,d) Neurological State Oriented to time-place- Alert Moves all extremities person Respiration - General Respiration Rate SpO2 (%) (B/min) 33 99 Chronological Log Time Study Chronological Log 6:54:49 Patient arrived via Bed. 6:58:03 Patient Name, D.O.B, / Armband Verified By R.N. 6:58:08 Presedation assessment performed by Buyer Broker RN. 6:58:11 Patient has been NPO for Less than 6Hrs. Vitals capture started with the following parameters, Patient=Adult, Interval=5 min, Initial Pre tgesf=348 mmHg, 6:58:23 Deflation Rate=5 mmHg, Cuff placed on Right Arm 6:58:35 Skin Breakdown- 6:58:36 Patient Warmer Placed on the Table. 6:58:38 Disposable Defibrillator Pads Placed On Patient. 6:58:39 Lisbeth Prominences Protected 6:58:40 A # 20 IV was noted in the Hand (left). Grade = 0 6:58:41 A # 20 IV was noted in the Hand (right). Grade = 0 6:58:41 IV Solutions given in lab by Rodriguez Moran RN in Left Hand via Peripheral IV. Pump/Drip Flow using NaCl .9. Assessment: Initial Case, Edema=Mod, Color=Normal, Skin = Warm, Dry Right Pulses: Damián Ped=2, Femoral=2 6:58:46 Left Pulses: Damián Ped=2, Femoral=2 Neurological: State=Alert, Ox3, BENTLEY 6:59:51 GE=195 bpm, JSHX=708/128 mmhg, SpO2=95.0 %, Resp=30 B/min 7:00:38 Reference ECG taken 7:01:22 NIBP STAT measurement started. 7:02:09 YD=980 bpm, RTNN=588/149 mmhg, SpO2=89.0 %, Resp=25 B/min 7:02:58 Bilateral groins prepped with 2% chlorhexidine, and draped after a 3 minute waiting time. 7:03:49 MD responded 7:04:09 SR=606 bpm, IBMN=180/144 mmhg, SpO2=94.0 %, Resp=12 B/min 7:09:10 JQ=169 bpm, TNUV=817/140 mmhg, SpO2=97.0 % 7:10:14 MD arrived. 7:11:13 NIBP STAT measurement started. 7:11:58 VT=285 bpm, TVQI=115/143 mmhg, SpO2=97.0 % 7:14:10 VZ=966 bpm, NPGC=078/142 mmhg, SpO2=96.0 %, Resp=37 B/min 7:14:46 Case Start 7:15:16 20 mL 1% XYLOCAINE given in lab by Lester Sadler in Right Groin via Subcutaneous. Ordered by Lester Sadler. 7:15:33 5 mg NTG (TRIDIL) given in lab by Rodriguez Moran RN in Left Hand via Peripheral IV. Ordered by Lester Sadler. 7:16:11 Access site was Right Femoral Artery. 7:16:20 A SHEATH, FR6.5 PRELUDE 11CM FR 6.5 was advanced into the Fem Art (right) using the Percutan eous technique. A 3DRC INFINITI CATHETER FR 6 was advanced over a wire. OMNIPAQUE, 350 MG, 150ML 150ML was used for 7:16:44 injections. Recorded Pressure: Ao, JD=991, Condition=Condition 1 7:17:57 (Aorta) Ao 185/125/154 7:18:36 The RCA was injected and visualized at various angles. OMNIPAQUE, 350 MG, 150ML 150ML used. After removing the current catheter a JR 5.0 INFINITI CATHETER FR 5 was advanced over a WIRE, 3M MJ .035 180CM 7:19:02 180CM. 7:19:09 GD=476 bpm, XYQD=059/136 mmhg, SpO2=97.0 %, Resp=25 B/min 7:19:34 abg drawn 2 mg/hr CLEVIPREX given in lab by Rodriguez Moran RN. Pump/Drip Flow = 4 ml/hr using [Solution Name ] with a 7:20:43 concentration of 50 mg in 100 ml. Ordered by Lester Sadler. 7:21:06 The LCA was injected and visualized at various angles. OMNIPAQUE, 350 MG, 150ML 150ML used. 7:22:50 10.8 mL ANGIOMAX BOLUS given in lab by Rodriguez Moran RN via Peripheral IV. Ordered by Lseter Sadler. After removing the current catheter a XB 4.5 GUIDE CATHETER FR 6 was advanced over a WIRE, 3MMJ .035 180CM 7:22:57 180CM. 7:24:10 AA=158 bpm, UISC=052/131 mmhg, SpO2=97.0 %, Resp=16 B/min 1.733 mg/kg/hr ANGIOMAX DRIP given in lab by Rodriguez Moran RN via Peripheral IV. Pump/Drip Flow = 25.2 ml/hr using 7:26:10 NaCl .9 with a concentration of 250 mg in 50 ml. Ordered by Lester Sadler. 7:27:45 A WIRE, BALANCE MIDDLEWEIGHT 190CM 190CM was inserted via Fem Art (right). 7:27:56 NIBP STAT measurement started. 7:28:32 MP=305 bpm, NDSD=240/97 mmhg, SpO2=97.0 % 7:29:58 A WIRE, ASAHI GRANDSLAM 180CM 180CM was inserted via Fem Art (right). 7:30:25 Wire removed BMW A BALLOON, 2.5 X 12MM EUPHORA 12MM was inserted over WIRE, ASAHI GRANDSLAM 180CM 180CM via the L AD 7:32:19 Prox. 7:34:02 YR=724 bpm, EQEO=848/104 mmhg, SpO2=97.0 %, Resp=33 B/min 7:39:05 OK=588 bpm, FREZ=402/103 mmhg, SpO2=98.0 %, Resp=35 B/min 7:44:08 RN=006 bpm, JBVF=542/102 mmhg, SpO2=99.0 %, Resp=29 B/min 7:46:28 Balloon Removed. 7:46:58 Catheter was removed 7:47:06 Wire removed A PIGTAIL ANG. 145 INFINITI CATHETER FR 6 was advanced over a wire. OMNIPAQUE, 350 MG, 150ML 150 ML was 7:47:27 used for injections. 25.2 mL/hr ANGIOMAX DRIP STOPPED given in lab by Rodriguez Moran RN. Pump/Drip Flow = 0 ml/hr using [Solution 7:48:33 Name]. Ordered by Lester Sadler. 7:49:03 IS=794 bpm, FDGG=220/106 mmhg, SpO2=98.0 %, Resp=32 B/min Recorded Pressure: LV, QV=040, Condition=Condition 1 7:49:08 (Left Ventricle) LV 148/18/33 7:50:05 The LV was injected at 10 cc/sec for a total of 15. OMNIPAQUE, 350 MG, 50ML 50ML used. Recorded Pressure: LV, Ao, AH=210, Condition=Condition 1 7:50:51 (Left Ventricle) LV 145/16/34, (Aorta) Ao 144/85/112 7:53:48 An injection in the Fem Art (right) was made through the SHEATH, FR6.5 PRELUDE 11CM FR 6.5. 7:54:02 OB=780 bpm, YOTJ=079/100 mmhg, SpO2=99.0 %, Resp=28 B/min 7:54:29 ANGIOSEAL, FR6 VIP FR 6 placement in the Fem Art (right) 7:54:47 Case End (Physician broke scrub) 7:55:00 No case complications noted. 7:55:02 Cine recording checked. 7:55:04 Bedside Report will be given. 7:55:09 A Left Heart Cath was performed. Assessment: Final Case, VO=255 BPM, NJAC=469/100 mmhg, Edema=Mod, Color=Normal, Skin = Warm, Dry Right Pulses: Damián Ped=2, Femoral=2 7:55:16 Left Pulses: Damián Ped=2, Femoral=2 Neurological: State=Alert, Ox3, BENTLEY Respiration: Resp=33 B/min, SpO2=99 % 7:59:05 UQ=196 bpm, YSSY=191/116 mmhg, SpO2=99.0 %, Resp=27 B/min 8:04:08 NC=006 bpm, WLPN=057/103 mmhg, SpO2=99.0 %, Resp=25 B/min 8:08:07 Vitals capture stopped. 8:10:23 Patient moved to stretcher End Study - Contrast Media Used In Study Contrast Total Opened (mL) Total Used (mL) Total Wasted (mL) Omnipaque 80 80 0 End Study - Maximum Contrast Load Max Contrast Load (mL) 259.7 End Study - Radiation Exposure Fluoro Time (minutes) 17.9 End Study - Patient Disposition Complications Transferred To Interventional Outcome No Critical Care Bed unsuccessful
[2018-06-16] MEDS ORDERED: Clevidipine Inj 25 MG/50 ML VIAL IV.CONT PRN (08:47)
[2018-06-16] MEDS ORDERED: Bisacodyl 10 MG Supp RECTAL PRN (08:50)
[2018-06-16] MEDS ORDERED: Acetaminophen 325 MG Tablet PO PRN (08:50)
[2018-06-16] MEDS ORDERED: Potassium Chlor 20 mEq Premix 20 MEQ/100 ML PIGGYBACK IV.SIG PRN ×2 (08:53)
[2018-06-16] MEDS ORDERED: Potassium Phosphate Inj 30 MMOL in Sodium Chlor 0.9% Inj 250 ML IV.SIG PRN (08:53)
[2018-06-16] MEDS ORDERED: Magnesium Sulfate Inj 2 GM in Sodium Chlor 0.9% Inj 96 ML IV.SIG PRN (08:53)
[2018-06-16] MEDS ORDERED: Potassium Chloride 25 MEQ Effervescent Tablet PO PRN (08:53)
[2018-06-16] MEDS ORDERED: Potassium Phosphate 500 MG Soluble Tablet PO PRN ×2 (08:53)
[2018-06-16] MEDS ORDERED: Magnesium Oxide 400 MG Tablet PO PRN (08:53)
[2018-06-16] MEDS ORDERED: Potassium Chlor 40 mEq Premix 40 MEQ/100 ML PIGGYBACK IV.SIG PRN ×2 (08:53)
[2018-06-16] MEDS ORDERED: Magnesium Sulfate Inj 4 GM in Sodium Chlor 0.9% Inj 92 ML IV.SIG PRN (08:53)
[2018-06-16] MEDS ORDERED: Dextrose 50% in Water 50 ML Vial IV.PUSH PRN (08:53)
[2018-06-16] MEDS ORDERED: Sodium Phosphate Inj 30 MMOL in Sodium Chlor 0.9% Inj 250 ML IV.SIG PRN (08:53)
[2018-06-16] MEDS ORDERED: fentaNYL 10 mcg/mL Premix Drip 2,500 MCG/250 ML BAG IV.SIG PRN ×2 (08:54→09:53)
[2018-06-16] MEDS ORDERED: Propofol 1000 mg/100 ml Inj 1,000 MG/100 ML BOTTLE IV.CONT PRN (08:54)
[2018-06-16] MEDS ORDERED: Etomidate Inj 40 MG/20 ML Vial IV.PUSH ONE ×2 (09:00→10:00)
[2018-06-16] MEDS: Norepinephrine Inj 16 MG in Sodium Chlor 0.9% Inj 234 ML IV.CONT PRN ×2 (09:25→18:26)
--- NOTE | 2018-06-16 09:37 | XR ---
EXAM DATE: 06/16/2018 12:00 AM EDT AGE/SEX: 89 years / Male INDICATIONS: Congestive heart failure. CLINICAL DATA: This is the patient's subsequent encounter. Patient reports that signs and symptoms h ave been present for 1 day and indicates a pain score of 0/10. MEDICAL/SURGICAL HISTORY: Congestive heart failure. None. COMPARISON: No prior exams available for comparison. FINDINGS: Cardiac silhouette is enlarged with indistinct central probably vascularity and diffuse interstitial prominence. There is patchy airspace disease in the right lower lung zones with probable small bilate ral pleural effusions. Remainder of exam is unchanged. CONCLUSION: 1. Cardiomegaly with pulmonary edema pattern. Electronically signed by: Herve Landrum MD 06/16/2018 9:36 AM EDT
--- NOTE | 2018-06-16 09:39 | MA ---
cc: Lester Sadler MD DATE: 06/16/2018 PROCEDURE PERFORMED: Left heart catheterization, left ventriculography, coronary angiography, unsuccessful attempt to cross the left anterior descending artery lesion with 2 different guidewires. Right femoral angiography with Angio-Seal placement. BRIEF HISTORY: This is a 67-year-old white male, who has not been to a doctor in over a year, who came into the ER with pulmonary edema, but had a chest x-ray suggesting an anterior infarct of indeterminate age. A STEMI alert was called. When I arrived, the patient was already prepped and draped on the cath table. He has had chest pain intermittently over the past month. The worst chest pain was actually at the start of the month. He actually has not had any chest pain today, mainly had breathing trouble. DESCRIPTION OF PROCEDURE: The patient was already prepped and draped when I arrived. I did not give him any IV sedation, due to his struggling to breathe. Using 1% lidocaine for local anesthesia, a single front wall access was obtained of the right common femoral artery. Next, coronary angiography was completed using a 3DRC for the right coronary artery on the left side to control left coronary artery. The LAD was totally occluded in a stump-like fashion after the first septal and first diagonal branch. I used an XB 4/5 LAD-guiding catheter, which barely reached the left main. I was able to get a BMW wire down to the stump occlusion, and despite multiple attempts, was not able to actually cross the occlusion. I decided to go with a stiffer wire. I used a Grand Slam wire, and was able to get the tip of the wire in the stump occlusion, and with multiple manipulations, was not able to get the wire past the stump. I then used a 2.5 mm balloon to help support the wire, and was more aggressive at this point, and was able to penetrate the occlusion almost a centimeter, but then the wire would still not go any further, and I was uncomfortable pushing harder for fear of perforation. After prolonged attempt to cross the lesion, I decided it was best to stop. I think the LAD occlusion was probably old from the way that it is appearing, and the way that it is behaving with the wire, and so we will manage this medically. At that point, I pulled the guiding catheter out. An angled pigtail catheter was then used to do low volume contrast LV gram and a pullback, and then used contrast to inject into the right femoral sheath, followed by uncomplicated Angio-Seal closure. There were no complications. TOTAL CONTRAST LOAD: Only 80 mL. The patient's condition improved dramatically during the case. Of mention, his aortic pressure when I first got access was 185/125. Cleviprex was started, which brought his blood pressure right down to normal at 2 mg a minute drip. FINDINGS: 1. Hemodynamics: Aortic pressure was initially 185/125. After 2 mg Cleviprex drip, LV pressure was 145/16 with an end-diastolic pressure strikingly elevated at 34, and an aortic pressure of 144/88 with a mean of 112. There was no gradient or pullback. 2. Left ventriculography: There is extensive anterolateral and apical dyskinesis. The heart appears enlarged. Ejection fraction is in the 15% to 20% range. There was no mitral regurgitation seen. 3. Coronary angiography: Left main coronary artery is short and normal appearing. It bifurcates into the LAD and circumflex vessel. The LAD has about 10% irregularity. It gives off one septal ice cream mixer branch and a major diagonal branch. Major diagonal branch has somewhat diffuse disease with at least 50% mid stenosis. The septal branch appears normal. The LAD is occluded in a stump-like fashion, just past the diagonal and septal ice cream mixer branch. The circumflex artery is a large nondominant vessel. Proximally, it shows some ectasia. It gives off a large obtuse marginal branch, which appears normal. The distal circumflex artery was totally occluded without a visible stump, i.e., it is flush occluded. There are gcaa-mf-glhl collaterals, and a few jbvqp-uk-ttju collaterals to the posterolateral branch and distal circumflex vessel. The right coronary artery is dominant. It gives off a large PDA branch, and a large branching posterolateral branch. The proximal to mid circumflex with a long irregular stenosis, about 40% severity at its worst. 4. Results of intervention: Attempts to cross the LAD lesion with a wire including a stiff guidewire with balloon support was unsuccessful. Suspect the occlusion is old. CONCLUSIONS: 1. Marked arterial hypertension. 2. Severely elevated left ventricular end-diastolic pressure consistent with congestive heart failure presentation. 3. Severely impaired left ventricular systolic function from extensive anteroapical and distal circumflex infarcts. 4. 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 Additional disease in other vessels does not require revascularization. PLAN: The patient will be admitted to ICU. We will begin diuresis, initiate ADRI inhibitor and beta em therapy clinic, Cleviprex being used temporarily for severe hypertension. Anticipated hospital stay is at least several days. MD RICHARDSON Metzger/rh , 08:11 AM , 08:21 AM
[2018-06-16] MEDS ORDERED: Propofol Inj 500 MG/50 ML Vial ONE (09:50)
--- NOTE | 2018-06-16 10:17 | P.PCN ---
Date of procedure: 06/16/18 Pre-op diagnosis: Acute respiratory failure Post-op diagnosis: same Procedure: DATE: 06/16/2018 PROCEDURE: Orotracheal intubation INDICATION: Acute respiratory failure DETAILS OF PROCEDURE The patient was placed in optimal position and preoxygenated with 100% FiO2 via bag valve mask. At the start oxygen saturation was 100%. The patient was administered 20 mg etomidate IV and 50 milligrams rocuronium IV. I entered the oropharynx with a size 4 laryngoscope blade and obtained a grade 2 view of the airway. On single attempt a size 8.0 cuffed endotracheal tube was passed through the vocal cords. Correct tube location was confirmed with end tidal CO2 detector and by auscultating over bilateral lung leslie. The endotracheal tube was secured with adhesive tape at a depth of 24 cm at the lips. The patient was connected to the ventilator. The patient tolerated the procedure well without any apparent complications. Oxygen saturations were maintained greater than 95% all times. STAT chest x-ray pending at time of dictation.
[2018-06-16 10:18] LABS: Baso # (Auto) 0.1 th/mm3 (0.0-0.2); Baso % (Auto) 0.3 % (0.0-2.0); Eos % (Auto) 0.2 % (0.0-4.0); Hematocrit 41.9 % (39.0-51.0); Hemoglobin 14.1 gm/dL (13.0-17.0); Lymph # (Auto) 1.4 th/mm3 (1.0-4.8); Lymph % (Auto) 8.7 % (9.0-44.0); Mean Corpuscular HGB Conc 33.7 % (32.0-36.0); Mean Corpuscular Hemoglobin 32.9 pg (27.0-34.0); Mean Corpuscular Volume 97.7 fL (80.0-100.0); Mean Platelet Volume 10.5 fL (7.0-11.0); Mono # (Auto) 1.2 th/mm3 (0.0-0.9); Mono % (Auto) 7.3 % (0.0-8.0); Neut # (Auto) 13.8 th/mm3 (1.8-7.7); Neut % (Auto) 83.5 % (16.0-70.0); Platelet Count 221 th/mm3 (150-450); Red Blood Count 4.29 mil/mm3 (4.50-5.90); Red Cell Distribution Width 13.9 % (11.6-17.2); White Blood Count 16.5 th/mm3 (4.0-11.0)
[2018-06-16 10:20] LABS: ABG Base Excess -4.9 mmol/L (-2-2); ABG PCO2 53 mmHg (38-42); ABG PO2 359 mmHG (61-120)
[2018-06-16] MEDS: Midazolam 50 MG/50 ML Inj 50 MG/50 ML BAG IV.CONT PRN ×2 (10:25→20:00)
--- NOTE | 2018-06-16 10:27 | P.PCN ---
Date of procedure: 06/16/18 Pre-op diagnosis: Acute respiratory failure, STEMI Post-op diagnosis: same Procedure: DATE: 06/16 2018 CENTRAL LINE PLACEMENT: Left internal jugular vein. Ultrasound-guided INDICATION: Central venous access CONSENT Informed consent for procedure was obtained from patient prior to intubation. DESCRIPTION OF THE PROCEDURE The patient was placed in supine position. The skin was cleansed with Chloraprep. Additional barrier precautions included large sterile drape, sterile gloves, sterile gown, face mask, and hat. 1 % lidocaine was used for local anesthesia. Under direct ultrasound guidance and on initial attempt, the vein was accessed with an introducer needle. The guide wire was advanced and the tract was dilated. Using Seldinger technique a 7 Lib[place] 20 cm antimicrobial coated triple-lumen catheter was advanced to a depth of 20 centimeters. The guide wire was removed. All ports had good return of dark venous blood and flushed easily with saline. The central line was secured with 2.0 silk. A sterile dressing with antibiotic disc was applied. ESTIMATED BLOOD LOSS: Minimal COMPLICATIONS: No apparent complications. STAT chest x-ray pending at time of dictation
[2018-06-16 10:28] LABS: Alanine Aminotransferase 21 U/L (12-78); Phosphorus 4.4 mg/dL (2.5-4.9)
--- NOTE | 2018-06-16 10:29 | P.PCN ---
Date of procedure: 06/16/18 Pre-op diagnosis: Acute respiratory failure Post-op diagnosis: same Procedure: DATE: 06/16/2018 PROCEDURE: Left radial arterial catheter placement INDICATION: Acute respiratory failure DETAILS OF PROCEDURE The patient was placed in supine position. The skin was cleansed with Chloraprep. Additional barrier precautions included large sterile drape, sterile gloves, sterile gown, face mask, and hat. 1% lidocaine was used for local anesthesia. Under direct ultrasound guidance and on the initial attempt, the artery was accessed with an introducer needle. The guide wire was advanced. Using Seldinger technique 20 gauge arterial catheter was placed. The guide wire was removed. The catheter was connected to a transducer line and flushed with saline. The video monitor displayed normal arterial wave forms. The catheter was secured with 2-0 silk. A sterile dressing with antibiotic disc was applied. Please note initially attempted left femoral arterial line. Under direct Guidance and on 3 attempts the artery was accessed with an introducer needle. The guidewire was unable to advance without currently unable to place as curled. Direct pressure was placed at the left femoral artery site for 5 minutes. Very small hematoma noted.. ESTIMATED BLOOD LOSS: minimal COMPLICATIONS: None
[2018-06-16 10:30] LABS: Alkaline Phosphatase 86 U/L (45-117); Total Protein 7.6 g/dL (6.4-8.2)
--- NOTE | 2018-06-16 10:30 | P.HPCC ---
History of Present Illness Service: Critical care medicine Primary Care Physician: No Primary Care Physician Chief Complaint: Anterior STEMI/acute respiratory failure History of Present Illness: This is a 67-year-old male. Actual name name is Ashvin Painter. Date of admission 06/16/2018. Past medical history includes sciatica. Patient is a former alcoholic but quit a few weeks ago prior to intubation. He has smoked for 50 years. Presents to [facility] today with chief complaint of chest pain. This is been present for the past week. Did not describe radiation of the neck the back and chest of the left arm prior to intubation. He was noted to have a low saturation on arrival of paramedics, however became combative due to claustrophobia on CPAP. N is placed on 100% nonrebreather, given sublingual nitrogen and furosemide Stimulator was called as patient had ST elevation in the anterior/lateral leads. Patient went to [facility] [employer] was noted to have mid to distal LAD 100%, diagonal 50%. 100 percent to left circumflex. 40% % RCA. Ejection fraction 15 -20%. Failed PCI to LAD. Patient was started on clevidipine drip due to hypertension.\\ I have asked the patient, patient was acidotic and tachypnea. Received 40 of IV furosemide in the [facility] [employer] [facility] and along with started on carvedilol 650 twice daily and lisinopril 10 mg twice daily. Due to the pulmonary edema, we are intubated the patient with 20 mg time and 50 mg of rocuronium. Central line is in place. Arterial has been placed for Inpatient Certification: I certify that the inpatient services were ordered in accordance with Medicare regulations governing the order. This includes certification that hospital inpatient services are reasonable and necessary and in the case of services not specified as inpatient-only under 42 CFR 419.22(n), that they are appropriately provided as inpatient services in accordance to with the 2-midnight benchmark under 43 CFR 412.3(e) Estimated Total Length of Stay (Days): 5 Plans for Post Hospital Care: Not yet determined Review of Systems unobtainable due to endotracheal tube PMFSH - History History Provided By: Patient, Recovery Rn / EMT - Medical History Medical History: Medical History (Last Updated 06/16/18 @ 11:11 by Germain Boone MD) Sciatica Tobacco abuse - Surgical History Surgical History: Surgical History (Last Updated 06/16/18 @ 11:11 by Germain Boone MD) Right wrist injury (Acute) - Family History Family History: Family History (Last Updated 06/16/18 @ 11:11 by Germain Boone MD) Other Family history non-contributory - Tobacco History Second Hand Smoke Exposure: Yes Tobacco Use In Past 30 Days: Yes Smoking Status: Current every day smoker - Substance Use History Substance History: Past History - Travel History Recent Travel in the [place] Within the Last 8 Weeks: No Recent Travel Out of the Country Within the Last 8 Weeks: No - Immunization History Tetanus Immunization: Unsure Hx Influenza Vaccine This Season: Unable to Assess Medications and Allergies Active Medications: Active Medications Acetaminophen (Tylenol) 650 mg PO Q6H PRN PRN Reason: PAIN 1-10 AND/OR FEVER >101F Al Hydroxide/Mg Hydroxide (Milk Of Magnangelica Liq) 30 ml PO Q12H PRN PRN Reason: Mild Constipation Albuterol (Albuterol Neb (Prn)) 2.5 mg NEB Q2HR NEB PRN PRN Reason: SHORTNESS OF BREATH/WHEEZING Albuterol (Duoneb Neb (Dipika)) 1 ampul NEB Q4HR NEB DIPIKA Artificial Tears (Refresh Tears 0.5% Opth Drops) 1 drop EACH EYE BID DIPIKA Aspirin (Aspirin Chew) 81 mg PO DAILY DIPIKA Atorvastatin Calcium (Lipitor) 10 mg PO HS DIPIKA Bisacodyl (Dulcolax Supp) 10 mg RECTAL DAILY PRN PRN Reason: SEVERE CONSITIPATION Carvedilol (Coreg) 6.25 mg PO BID DIPIKA Chlorhexidine Gluconate (Chlorhexidine 2% Cloth) 3 pack TOPICAL DAILY@0400 DIPIKA Stop: 06/22/18 03:59 Chlorhexidine Gluconate (Chlorhexidine 2% Cloth) 3 pack TOPICAL DAILY@0400 PRN PRN Reason: Extra cloth needed Stop: 06/22/18 03:59 Chlorhexidine Gluconate (Peridex 0.12% Oral Kit) 15 ml OROPHARYNG BID@0800, 2000 [facility] Dextrose (D50w Vial) 50 ml IV.PUSH UNSCH PRN PRN Reason: PER HYPOGLYCEMIA PROTOCOL Furosemide (Lasix Inj) 40 mg IV.PUSH ONCE ONE Stop: 06/16/18 12:01 Furosemide (Lasix Inj) 40 mg IV.PUSH BID@0900,1800 [facility] Glucagon (Glucagon Inj) 1 mg OTHER UNSCH PRN PRN Reason: for Hypoglycemia Protocol Sodium Chloride (Ns Inj) 1,000 mls @ 30 mls/hr IV.SIG .Q24H IDPIKA Stop: 06/17/18 06:59 Clevidipine (Cleviprex Inj) 25 mg in 50 mls @ 2 mls/hr IV.CONT TITRATE PRN; Protocol PRN Reason: Per protocol Magnesium Sulfate 4 gm/ Sodium (Chloride) 100 mls @ 50 mls/hr IV.SIG UNSCH PRN PRN Reason: For Magnesium 0.9 - 1.1 mg/dL Potassium Chloride (Kcl 40 Meq Premix Inj) 40 meq in 100 mls @ 50 mls/hr IV.SIG Q2H PRN PRN Reason: For Potassium 2.8 - 3.2 mEq/L Potassium Chloride (Kcl 20 Meq Premix Inj) 20 meq in 100 mls @ 50 mls/hr IV.SIG Q2H PRN PRN Reason: For Potassium 3.3 - 3.5 mEq/L Potassium Chloride (Kcl 40 Meq Premix Inj) 40 meq in 100 mls @ 25 mls/hr IV.SIG UNSCH PRN PRN Reason: For Potassium 3.3 - 3.5 mEq/L Potassium Chloride (Kcl 20 Meq Premix Inj) 20 meq in 100 mls @ 50 mls/hr IV.SIG Q2H PRN PRN Reason: For Potassium 2.8 - 3.2 mEq/L Potassium Phosphate 30 mmol/ (Sodium Chloride) 260 mls @ 42 mls/hr IV.SIG UNSCH PRN PRN Reason: SEE LABEL COMMENTS Sodium Phosphate 30 mmol/ (Sodium Chloride) 260 mls @ 42 mls/hr IV.SIG UNSCH PRN PRN Reason: For Phosphorus < 2.5 mg/dL Magnesium Sulfate 2 gm/ Sodium (Chloride) 100 mls @ 50 mls/hr IV.SIG UNSCH PRN PRN Reason: For Magnesium 1.2 - 1.6 mg/dL Fentanyl (Fentanyl 10 Mcg/Ml Premix Drip) 2,500 mcg in 250 mls @ 5 mls/hr IV.SIG TITRATE PRN; Protocol PRN Reason: Per Protocol Midazolam HCl (Versed Inj) 50 mg in 50 mls @ 2 mls/hr IV.CONT TITRATE PRN; Protocol PRN Reason: Per Protocol Insulin Aspart (Novolog Insulin Correctional Sugar Inj) 0 unit SQ Q6HR DIPIKA; Protocol Lactulose (Lactulose Liq) 30 ml PO DAILY PRN PRN Reason: SEVERE CONSITIPATION Lisinopril (Prinivil) 10 mg PO BID DIPIKA Magnesium Oxide (Mag-Ox) 800 mg PO UNSCH PRN PRN Reason: For Magnesium 1.2 - 1.6 mg/dL Miscellaneous Medication () 1 each OROPHARYNG 0000,0400,1200,1600 DIPIKA Pantoprazole Sodium (Protonix Inj) 40 mg IV.PUSH DAILY DIPIKA Potassium Bicarb/Potassium Chloride (K-Lyte Cl Eff) 50 meq PO UNSCH PRN PRN Reason: For Potassium 3.3 - 3.5 mEq/L Potassium Chloride (K-Dur) 20 meq PO TID DIPIKA Potassium Phosphate (K-Phos Original) 2,000 mg PO UNSCH PRN PRN Reason: SEE LABEL COMMENTS Potassium Phosphate (K-Phos Original) 2,000 mg PO Q4H PRN PRN Reason: Phosphorus Less Than 2.5 mg/dL Rocuronium [place] (Zemuron Inj) 100 mg IV.PUSH BOLUS ONE Stop: 06/16/18 10:31 Senna/Docusate Sodium (Adia-Colace) 1 tab PO BID [facility] Sennosides (Senokot) 17.2 mg PO Q12H PRN PRN Reason: Moderate Constipation Sodium Chloride (Ns Flush) 2 ml IV.FLUSH BID DIPIKA Sodium Chloride (Ns Flush) 2 ml IV.FLUSH UNSCH PRN PRN Reason: FLUSH AFTER USING IV ACCESS Allergies Allergy/AdvReac Type Severity Reaction Status Date / Time No Known Allergies Allergy Verified 06/16/18 06:46 Home Medications Medication Instructions Recorded Confirmed Type No Known Home Medications 06/16/18 06/16/18 History Results - Labs CBC & Chem 7: 06/16/18 09:40 06/16/18 09:40 Labs: Short CBC 06/16/18 06/16/18 Range/Units 06:50 09:40 WBC 8.3 16.5 H D (4.0-11.0) th/mm3 Hgb 14.3 14.1 (13.0-17.0) gm/dL Hct 44.2 41.9 (39.0-51.0) % Plt Count 209 221 (150-450) th/mm3 [facility] 06/16/18 06:50 Calcium 8.2 L Cardiac Enzymes 06/16/18 Range/Units 06:50 Total Creatine Kinase 138 (39-308) U/L CK-MB (CK-2) 2.4 (0.5-3.6) ng/mL Troponin I 0.47 H (0.02-0.05) ng/mL Liver Function 06/16/18 Range/Units 09:40 ALT 21 (12-78) U/L - Imaging Impressions Chest X-Ray 06/16/18 00:00 CONCLUSION: 1. Cardiomegaly with pulmonary edema pattern. Exam Vital signs: Vital Signs 06/16/18 06:44 06/16/18 06:45 06/16/18 06:53 Pulse Rate 130 H Respiratory Rate 28 H Blood Pressure 206/144 H Pulse Oximetry 100 99 99 06/16/18 08:25 Pulse Rate Respiratory Rate Blood Pressure Pulse Oximetry 92 L Intake & Output 06/15/18 06/16/18 06/16/18 18:59 06:59 18:59 Weight 72.575 kg - Constitutional moderate distress, thin - Routine HEENT Exam Head: Present: normocephalic, atraumatic Eye: Present: EOMI, PERRL, normal accommodation ENT: Present: mucous membranes moist - Routine Neck Exam Present: supple, JVD. Absent: carotid bruit - Routine Chest/Breast/Axilla Exam Chest wall: Absent: tenderness Breast: Absent: tenderness Axillae: Absent: lymphadenopathy - Routine Respiratory Exam Present: prolonged expiratory phase, rhonchi, crackles, distant breath sounds. Absent: accessory muscle use - Routine Cardiovascular Exam Present: S1, S2, tachycardia. Absent: murmur - Routine Abdominal Exam Present: soft, normoactive bowel sounds - Routine Extremities Exam Absent: cyanosis, clubbing, edema - Routine Skin Exam Present: intact - Routine Neurological Exam Present: alert, oriented X3, CN II-XII intact Septic Shock Reassessment Septic shock perfusion: reassessment completed Caprini VTE Risk Assessment Caprini VTE Risk Assessment: No/Low Risk (score <= 1) Caprini Risk Assessment Model: Point Value = 1 Point Value = 2 Point Value = 3 Point Value = 5 Age 41-60 Minor surgery BMI > 25 kg/m2 Swollen legs Varicose veins or History of unexplained or recurrent spontaneous Oral contraceptives or hormone replacement Sepsis (< 1 month) Serious lung disease, including pneumonia (< 1 month) Abnormal pulmonary function Acute myocardial infarction Congestive heart failure (< 1 month) History of inflammatory bowel disease Medical patient at bed rest Age 61-74 Arthroscopic surgery Major open surgery (> 45 min) Laparoscopic surgery (> 45 min) Malignancy Confined to bed (> 72 hours) Immobilizing plaster cast Central venous access Age >= 75 History of VTE Family history of VTE Factor V Leiden Prothrombin [id number] Lupus anticoagulant Anticardiolipin antibodies Elevated serum homocysteine Heparin-induced thrombocytopenia Other congenital or acquired thrombophilia Stroke (< 1 month) Elective arthroplasty Hip, pelvis, or leg fracture Acute spinal cord injury (< 1 month) Prophylaxis Regimen: Total Risk Factor Score Risk Level Prophylaxis Regimen 0-1 Low Early ambulation 2 Moderate Order ONE of the following: *Sequential Compression Device (SCD) *Heparin 5000 units SQ BID 3-4 Higher Order ONE of the following medications: *Heparin 5000 units SQ TID *Enoxaparin/Lovenox 40 mg SQ daily (WT < 150 kg, CrCl > 30 mL/min) *Enoxaparin/Lovenox 30 mg SQ daily (WT < 150 kg, CrCl > 10-29 mL/min) *Enoxaparin/Lovenox 30 mg SQ BID (WT < 150 kg, CrCl > 30 mL/min) AND/OR *Sequential Compression Device (SCD) 5 or more Highest Order ONE of the following medications: *Heparin 5000 units SQ TID (Preferred with Epidurals) *Enoxaparin/Lovenox 40 mg SQ daily (WT < 150 kg, CrCl > 30 mL/min) *Enoxaparin/Lovenox 30 mg SQ daily (WT < 150 kg, CrCl > 10-29 mL/min) *Enoxaparin/Lovenox 30 mg SQ BID (WT < 150 kg, CrCl > 30 mL/min) AND *Sequential Compression Device (SCD) Assessment and Plan - Assessment and Plan Plan: Neuro/Psych: History of EtOH Patient is currently on midazolam/fentanyl drips for sedation/analgesia while intubated Goal of RASS -2 Daily sedation vacation Acetaminophen 6 50 x 2 every 6 hours as needed fever We will start on vitamin bag daily 3 days. Start thiamine on day 4 CV: Anterior STEMI Acute systolic heart failure Essential hypertension Hyperlipidemia Coronary artery disease Followed by cardiology/Dr. Sadler Heart catheterization revealed ejection fraction 15-20%. Mid to distal LAD and a percent. Diagonal 50%. Left circumflex 100%. RCA 40%. Failed LAD PCI Currently on aspirin 81 mg daily Started on carvedilol 6.25 twice daily and lisinopril 10 mg twice daily for hypertension As needed clevidipine drip to keep systolic blood pressure less than 160 On furosemide 40 mg IV twice daily Resp: Acute respiratory failure secondary pleural effusions/pulmonary edema Tobaccoism PRVC 20/525/0.9/8/60 Ventilator bundle Albuterol/ipratropium aerosols every 4 hours with albuterol aerosols every 2 hours as needed for dyspnea Spontaneous breathing trials when clinically indicated Follow postintubation chest x-ray and ABG Tobacco cessation education provided when appropriate GI: Hypoalbuminemia NGT to LIWS Start on tube feedings Jevity 1.5 goal 50 cc an hour Pantoprazole for GI prophylaxis Docusate sodium/senna 1 tablet twice daily for bowel regimen : Whitaker catheter for accurate I's and O/diuretic use Endo: Acute hyperglycemia Start sliding scale insulin Accu-Cheks to maintain glycemia/every 6 hours aspart Renal: Acute kidney injury Creatinine is currently 1.6 Check renal ultrasound and urine eosinophils Heme: Leukocytosis Monitor CBC daily. Follow trends. No indication for transfusion of blood products at this time ID: Monitor for signs and symptomatology infection FEN: Replace electrolytes as clinically indicated per ICU electrolyte protocol MSK: Physical therapy evaluate and treat Access -Left IJ CVL placed 06/16 -Left radial arterial line placed 06/16 Prophylaxis -GI -pantoprazole -DVT -SCD/heparin subcu Admission. 35 minutes critical care time Code Status: Full code Discussed Condition With: Patient. Dr. Sadler/cardiology. RN. CARE plan discussed and all questions answered.
[2018-06-16 10:34] LABS: Albumin 3.1 g/dL (3.4-5.0); Anion Gap 10 meq/L (5-15); Aspartate Aminotransferase 36 U/L (15-37); Blood Urea Nitrogen 24 mg/dL (7-18); Calcium 8.3 mg/dL (8.5-10.1); Carbon Dioxide 23.8 meq/L (21.0-32.0); Chloride 104 meq/L (98-107); Glomerular Filtration Rate 36 mL/min (>89); Glucose,Random 192 mg/dL (74-106); Magnesium 2.1 mg/dL (1.5-2.5); Potassium 3.8 meq/L (3.5-5.1); Sodium 138 meq/L (136-145)
--- NOTE | 2018-06-16 10:38 | MH ---
cc: Lester Sadler MD DATE OF ADMISSION: 06/16/2018 ADMISSION DIAGNOSES: 1. Recent anterior myocardial infarction. 2. Severely decompensated congestive heart failure. 3. Chronic tobacco abuse. 4. Suspected type 2 diabetes. CHIEF COMPLAINT: Chest pain and shortness of breath. HISTORY OF PRESENT ILLNESS: This is a 67-year-old man who I was called for, for a STEMI alert. At the time I met the patient, he was already on the catheterization table. The patient has not been to a doctor in over a year. He has no family other than a brother in [place]. He started having chest pain that was severe at the beginning of May. It has been intermittent since then. He developed profound shortness of breath. Neighbors called paramedics to pick him up. He was initially combative with low oxygen saturations. Once he is given a CPAP mask, oxygenation seemed to improve. In further discussion with the patient, he has had no chest pain in the past 24 hours. The EKG showing an infarct that probably happened a month ago. The patient's shortness of breath has improved with the Lasix given in the ER. We know nothing about past medical history because he has not been to a doctor. SOCIAL HISTORY: He is single. He lives alone. His only family is a brother in [place], who is now close to. He is a heavy smoker and smoked all of his life. Remaining history currently not obtained because of the patient's dyspnea. PHYSICAL EXAMINATION: GENERAL: Shows a man who appears older than his stated age. VITAL SIGNS: Blood pressure is extremely elevated. He is on a drip currently. HEENT: Atraumatic, normocephalic. NECK: Shows JVD. LUNGS: Shows bilateral rales. CARDIAC: S1, S2, S3, tachycardic. ABDOMEN: Obese. EXTREMITIES: Reveal at least 1+ edema. LABORATORY DATA: EKG shows sinus tachycardia, low limb lead voltage, recent or acute anterior and inferior infarcts. Chest x-ray was not obtained in the ER. . Hematocrit is 44.2, MCV is elevated at 101.1, BUN is 26, creatinine 1.4, glucose 232. Troponin 0.47. BNP is 4327. CPK is 138. microbiological laboratory technician intervention, the mid LAD was totally occluded. I suspect this is all that was unable to cross over the guidewire. He also has total occlusion of the distal circumflex. Both vessels have slight collaterals. LV function is severely impaired with an EF about 15-20%. CONCLUSIONS: I suspect the patient had occluded his LAD at the beginning of May and I would generally follow that with severely impaired LV function and severe systolic congestive heart failure that is acute. I do not suspect this is an acute SD based on the appearance of the EKG and the fact CPK is only 138 that evidence now pointing to this not being an acute infarct, but actually an infarct that occurred at the beginning of the month. The LAD is not able to be opened with angioplasty, so therefore, he will need to be treated medically. PLAN: Continue IV diuretics, add ADRI inhibitor, beta beta-em therapy. We will eventually wean off , him in the ICU, expect if he is going to be here for at least a few days. MD RICHARDSON Metzger/maribell/sushma , 08:21 AM , 08:31 AM
[2018-06-16 10:54] LABS: Chol/HDL Ratio 2.07 Ratio; HDL Cholesterol 61.6 mg/dL (40.0-60.0); Thyroid Stimulating Hormone 3.29 uIU/mL (0.358-3.740)
[2018-06-16] MEDS ORDERED: Potassium Chlor 20 mEq Premix 20 MEQ/100 ML PIGGYBACK IV.SIG ONE (11:00)
[2018-06-16 11:01] LABS: Lymphocytes 5 % (9-44); Metamyelocytes 1 % (0-1); Monocytes 8 % (0-8); Promyelocyte 1 % (0-0)
[2018-06-16 11:02] LABS: Ovalocytes 1+; Platelet Estimate Normal (Normal); Platelet Morphology Clumped (Normal)
--- NOTE | 2018-06-16 11:09 | XR ---
EXAM DATE: 06/16/2018 10:19 AM EDT AGE/SEX: 89 years / Male INDICATIONS: Post central line placement. CLINICAL DATA: This is the patient's subsequent encounter. Patient reports that signs and symptoms h ave been present for 1 day and indicates a pain score of Nonresponsive. MEDICAL/SURGICAL HISTORY: Congestive heart failure. None. COMPARISON: C, CHEST 1V SINGLE AP, 06/16/2018. . FINDINGS: Patient has been intubated with ETT at the level the clavicles. Left IJ central line with tip in the very proximal SVC. Persistent pulmonary edema pattern. No significant pneumothorax. Remainder of the exam is unchanged. CONCLUSION: 1. ETT in good position. 2. Left IJ central line with tip in the very proximal SVC. No pneumothorax. 3. Persistent pulmonary edema pattern. Electronically signed by: Herve Landrum MD 06/16/2018 11:07 AM EDT
[2018-06-16 12:21] LABS: ABG Base Excess -3.9 mmol/L (-2-2); ABG PCO2 40 mmHg (38-42); ABG PO2 129 mmHG (61-120)
[2018-06-16] MEDS ORDERED: Iohexol 350 MG/ML 100 ML Vial (for Cath Lab) IVCONTRAST ONE (12:25)
[2018-06-16] MEDS: Lisinopril 10 MG Tablet PO SCH ×2 (12:58→21:26)
[2018-06-16] MEDS: Carvedilol 6.25 MG Tablet PO SCH ×2 (12:58→21:25)
[2018-06-16] MEDS: Pantoprazole Inj 40 MG Vial IV.PUSH SCH (13:01)
--- NOTE | 2018-06-16 13:54 | US ---
EXAM DATE: 06/16/2018 12:00 AM EDT AGE/SEX: 89 years / Male INDICATIONS: Increased lab values. CLINICAL DATA: This is the patient's initial encounter. Patient reports that signs and symptoms have been present for 1 day and indicates a pain score of 0/10. MEDICAL/SURGICAL HISTORY: . Sciatica. . Right wrist injury repair. COMPARISON: No prior studies available for comparison. MEASUREMENTS: Right Kidney:__8.9 x 5.3 x 3.5 cm Left Kidney:__9.0 x 4.4 x 4.3 cm FINDINGS: Right Kidney: Normal echogenicity and cortical thickness. No hydronephrosis, stone, or mass is identi fied. Left Kidney: Normal echogenicity and cortical thickness. No hydronephrosis, stone, or mass is identif ied. Bladder: Whitaker catheter is present. Bladder decompressed. Other: None. CONCLUSION: The kidneys are at the lower limits for normal in size. Otherwise, no abnormality is identified. Ther e is no hydronephrosis. Electronically signed by: Son Thapa MD 06/16/2018 1:52 PM EDT
--- NOTE | 2018-06-16 13:59 | P.DIET ---
Nutritional Evaluation Type of nutrition evaluation: initial Nutrition consult regarding: Tube Feeding Objective - Diagnosis STEMI anterior - Objective % IBW: 96 (IBW = 166#) Body Weight Used for Calculations: Actual (72.6 kg) Energy Needs - Lower Range (kCal/kg): 28 Energy Needs - Upper Range (kCal/kg): 32 Lower Limit kCal/kg (kCals): 2,033 Upper Limit kCal/kg (kCals): 2,323 Lower Limit Protein Factor (Grams per Kg): 1.0 Upper Limit Protein Factor (Grams per Kg): 1.5 Lower Protein Needs (Protein): 73 Upper Protein Needs (Protein): 109 Dietitian Reviewed in Medical Record: Curent medications, Intake & Output, Labs , Medical history, Tube feeding Diet Order: NPO Objective Comments: glu 192, HgA1c pending Assessment Assessment: Pt is at high nutrition rsk 2' to TFing. Current order is for Jevity 1.5 @ 50 mls/hr. Recommend change to Glucerna 1.5 @ 60 mls/hr to provide 2160 kcals, 119 gms protein and 1093 mls of free water. Recommendations: Glucerna 1.5 @ 60 mls/hr goal Dietitian to Monitor: Lab values, Intake & Output, Tube feeding tolerance, Weight change, Medical course
--- NOTE | 2018-06-16 14:16 | P.CONPAL ---
Consult Service: Palliative Care Requesting Physician: Germain Boone Reason for Consult: a. To assist with evaluation and management of symptoms including: dyspnea, pain b. To assist medical decision maker(s) with: better understanding of current medical conditions; weighing benefits/burdens of medical treatment options; making medical treatment decisions. Primary Care Provider: No Primary Care Physician History of Present Illness History of Present Illness: This patient presented to the ED with reports of chest pain for a week or so. Neighbors initiated EMS. EMS reports patient combative with them, low O2 sats they attempted CPAP mask however he apparently was claustrophobic. Was started on a nonrebreather. Received nitro sublingual. Received aspirin, nitro, Lasix in route to the ED. * ED: Called a STEMI alert. EKG notable for ST elevation on anterior leads suggestive of anterior GA. He went emergently to catheterization lab. * Cardiology: Patient reported started having severe chest pain in the beginning of May, with intermittent pain since then. He then developed shortness of breath with neighbors calling paramedics. EKG shows infarct that probably occurred a month ago. Cardiac catheterization findings of mid LAD totally occluded ; also with total occlusion of the distal circumflex. Both vessels with slight collateral. LV function severely impaired EF about 15-20%. Does not suspect acute GA based on appearance of EKG. LAD was unable to be opened with angioplasty, therefore will require medical treatment. Continue IV diuretics, add ADRI inhibitor, beta-em. * Palliative care was consulted to assist with clarification of goals of medical treatment Pt seen in room, nurse present. He is on light sedation versed on [facility] vent, however is quite alert and nodding to questions, appears very appropriate. Able to write some, though weak and limited 2/[address] to [address] tx in place. Explain hospitalization/current dx, he nods in agreement. He indicates no prev medical hx except for sciatica. Indicates sciatica not bothering him right now. He does admit prev heavy etoh use, says none for 3-4 mos. currently smoking. Parents . Does not communicate their medical history. Has 3 siblings- 2 sister,1 brother Nick. He also indicates has a close friend Jerome, whom he wants called before brother Nick, indicates would trust this person to make medical decisions when asked. Able to write her #. I did attempt to call, VM left with my contact info. No other complaints at this time, indicates Rt eye hurts- exam benign aside from tearing. Indicates prior to this hospital visit his health had been good. Indicates he took no medications daily. On levophed for hypotension. 1600 additional hx per neighbor Jerome Adair : She has lived next door to him several years, knows him fairly well. indicates he is somewhat reclusive but does interact with her on a regular basis, does not have any other friends that she is aware of. Indicates he has hx of binge etoh use though not recent. He cares for many cats in the neighborhood. She called EMS for him feeling he might have heart failure or something cardiac going on (she is a physical therapist). She is able to provide me with brother Abilio number in [place]. She is not aware of any other family. She indicates she would prefer family to be his decision maker, though endorses she probably knows him best locally and has helped him as needed over the years. She remains available to assist with whatever he needs during hospitalization and discharge etc. attempted to reach brother after this call, spoke w brothers Radha at the home #, she provided same facundo # (requested DO NOT GIVE FACUNDO # to pt due to him calling it nonstop in the past during binge drinking) and indicates will relay general info to Nick. Attempted to call Nick on facundo, VM left. Patient apparently with other medical history significant for: Sciatica, EtOH abuse quit a few weeks ago, smoker for 50 years. Possible diabetes. Reported to be intermittently homeless. May have a brother in [place]. H&P in EMR 08/2005 : admitted for intoxication, found face down by a neighbor, per nursing hx= completed GED. contact= brother . smoked 1ppd. drinks vodka 1 L per day, most days. Hx of headaches, bipolar, claustrophobia. Mother 2 yrs before. Appears his name is Ashvin Painter 46 -- EMR search of "Melvin Painter" with same results in a few prior ED visits, +/- 2001. 2001 H&P notes presentation to the ED due to foot scar and acute alcohol intoxication. At that time he did not disclose any other additional medical problems. Reported to live in an apartment. Reported not . Not working at that time. For that H&P he reported adopted and did not know his family. He was discharged to [facility]. He had a scalp laceration which was stapled. At that time he listed a contact as Kenya Painter, parent [phone]--this may be the mother that in a later visit he reports . Function/Cognitive Trajectory: Apparently lives at home independent prior to this admission. Reports no recent health issues. Review of Systems other (Patient on mechanical vent though able to nod to yes and no questions) Constitutional: Denies fever(s) Eyes: Reports pain (Right eye pain today) Cardiovascular: Denies chest pain (None currently), Denies shortness of breath Respiratory: Denies cough Gastrointestinal: Denies nausea, Denies vomiting Musculoskeletal: Reports joint pain (Right hip and back sciatica pain, chronic) Skin/Breast: Denies rash PMFSH - History History Provided By: Patient, Side Laster Tack / EMT - Medical History Medical History: Medical History (Last Updated 06/16/18 @ 11:11 by Germain Boone MD) Sciatica Tobacco abuse - Surgical History Surgical History: Surgical History (Last Updated 06/16/18 @ 11:11 by Germain Boone MD) Right wrist injury (Acute) - Family History Family History: Family History (Last Updated 06/16/18 @ 15:14 by NASIMA Renteria) Other Family history non-contributory Parents - Social History I have reviewed the patient's Social History: Yes - Tobacco History Second Hand Smoke Exposure: Yes Tobacco Use In Past 30 Days: Yes Smoking Status: Current every day smoker Tobacco Type: Cigarettes Packs Per Day: 1 - Alcohol History How Often Do You Have a Drink Containing Alcohol: Never - Substance Use History Substance History: Past History (Prior alcohol use 1 L of vodka a day, last use 3 or 4 months ago) - Travel History Recent Travel in the USA Within the Last 8 Weeks: No Recent Travel Out of the Country Within the Last 8 Weeks: No - Immunization History Tetanus Immunization: Unsure Hx Influenza Vaccine This Season: Unable to Assess Medications and Allergies Active Medications: Active Medications Acetaminophen (Tylenol Liq) 650 mg PO Q6H PRN PRN Reason: FEVER Al Hydroxide/Mg Hydroxide (Milk Of Magnesia Liq) 30 ml PO Q12H PRN PRN Reason: Mild Constipation Albuterol (Albuterol Neb (Prn)) 2.5 mg NEB Q2HR NEB PRN PRN Reason: SHORTNESS OF BREATH/WHEEZING Albuterol (Duoneb Neb (Dipika)) 1 ampul NEB Q4HR NEB [facility] Artificial Tears (Refresh Tears 0.5% Opth Drops) 1 drop EACH EYE BID [facility] Aspirin (Aspirin Chew) 81 mg PO DAILY [facility] Atorvastatin Calcium (Lipitor) 10 mg PO HS [facility] Bisacodyl (Dulcolax Supp) 10 mg RECTAL DAILY PRN PRN Reason: SEVERE CONSITIPATION Carvedilol (Coreg) 6.25 mg PO BID [facility] Last Admin: 06/16/18 12:58 Dose: Not Given Chlorhexidine Gluconate (Chlorhexidine 2% Cloth) 3 pack TOPICAL DAILY@0400 [facility] Stop: 06/22/18 03:59 Chlorhexidine Gluconate (Chlorhexidine 2% Cloth) 3 pack TOPICAL DAILY@0400 PRN PRN Reason: Extra cloth needed Stop: 06/22/18 03:59 Chlorhexidine Gluconate (Peridex 0.12% Oral Kit) 15 ml OROPHARYNG BID@0800, 2000 [facility] Dextrose (D50w Vial) 50 ml IV.PUSH UNSCH PRN PRN Reason: PER HYPOGLYCEMIA PROTOCOL Furosemide (Lasix Inj) 40 mg IV.PUSH BID@0900,1800 [facility] Glucagon (Glucagon Inj) 1 mg OTHER UNSCH PRN PRN Reason: for Hypoglycemia Protocol Heparin Sodium (Porcine) (Heparin Inj) 5,000 units SQ Q12HR [facility] Sodium Chloride (Ns Inj) 1,000 mls @ 30 mls/hr IV.SIG .Q24H [facility] Stop: 06/17/18 06:59 Clevidipine (Cleviprex Inj) 25 mg in 50 mls @ 2 mls/hr IV.CONT TITRATE PRN; Protocol PRN Reason: Per protocol Magnesium Sulfate 4 gm/ Sodium (Chloride) 100 mls @ 50 mls/hr IV.SIG UNSCH PRN PRN Reason: For Magnesium 0.9 - 1.1 mg/dL Potassium Chloride (Kcl 40 Meq Premix Inj) 40 meq in 100 mls @ 50 mls/hr IV.SIG Q2H PRN PRN Reason: For Potassium 2.8 - 3.2 mEq/L Potassium Chloride (Kcl 20 Meq Premix Inj) 20 meq in 100 mls @ 50 mls/hr IV.SIG Q2H PRN PRN Reason: For Potassium 3.3 - 3.5 mEq/L Potassium Chloride (Kcl 40 Meq Premix Inj) 40 meq in 100 mls @ 25 mls/hr IV.SIG UNSCH PRN PRN Reason: For Potassium 3.3 - 3.5 mEq/L Potassium Chloride (Kcl 20 Meq Premix Inj) 20 meq in 100 mls @ 50 mls/hr IV.SIG Q2H PRN PRN Reason: For Potassium 2.8 - 3.2 mEq/L Potassium Phosphate 30 mmol/ (Sodium Chloride) 260 mls @ 42 mls/hr IV.SIG UNSCH PRN PRN Reason: SEE LABEL COMMENTS Sodium Phosphate 30 mmol/ (Sodium Chloride) 260 mls @ 42 mls/hr IV.SIG UNSCH PRN PRN Reason: For Phosphorus < 2.5 mg/dL Magnesium Sulfate 2 gm/ Sodium (Chloride) 100 mls @ 50 mls/hr IV.SIG UNSCH PRN PRN Reason: For Magnesium 1.2 - 1.6 mg/dL Fentanyl (Fentanyl 10 Mcg/Ml Premix Drip) 2,500 mcg in 250 mls @ 5 mls/hr IV.SIG TITRATE PRN; Protocol PRN Reason: Per Protocol Midazolam HCl (Versed Inj) 50 mg in 50 mls @ 2 mls/hr IV.CONT TITRATE PRN; Protocol PRN Reason: Per Protocol Multivitamins 10 ml/ Thiamine HCl 100 mg/ Folic Acid 1 mg/Sodium Chloride 511.2 mls @ 125 mls/hr IV.SIG Q24H [facility] Stop: 06/18/18 18:06 Norepinephrine Bitartrate 16 (mg/ Sodium Chloride) 250 mls @ 1.87 mls/hr IV.CONT TITRATE PRN; Protocol PRN Reason: See Protocol Insulin Aspart (Novolog Insulin Correctional Sugar Inj) 0 unit SQ Q6HR [facility]; Protocol Lactulose (Lactulose Liq) 30 ml PO DAILY PRN PRN Reason: SEVERE CONSITIPATION Lisinopril (Prinivil) 10 mg PO BID [facility] Last Admin: 06/16/18 12:58 Dose: Not Given Magnesium Oxide (Mag-Ox) 800 mg PO UNSCH PRN PRN Reason: For Magnesium 1.2 - 1.6 mg/dL Miscellaneous Medication () 1 each OROPHARYNG 0000,0400,1200,1600 [facility] Pantoprazole Sodium (Protonix Inj) 40 mg IV.PUSH DAILY [facility] Last Admin: 06/16/18 13:01 Dose: 40 mg Potassium Bicarb/Potassium Chloride (K-Lyte Cl Eff) 50 meq PO UNSCH PRN PRN Reason: For Potassium 3.3 - 3.5 mEq/L Potassium Chloride (K-Dur) 20 meq PO TID [facility] Last Admin: 06/16/18 12:58 Dose: Not Given Potassium Phosphate (K-Phos Original) 2,000 mg PO UNSCH PRN PRN Reason: SEE LABEL COMMENTS Potassium Phosphate (K-Phos Original) 2,000 mg PO Q4H PRN PRN Reason: Phosphorus Less Than 2.5 mg/dL Senna/Docusate Sodium (Adia-Colace) 1 tab PO BID [facility] Sennosides (Senokot) 17.2 mg PO Q12H PRN PRN Reason: Moderate Constipation Sodium Chloride (Ns Flush) 2 ml IV.FLUSH BID [facility] Last Admin: 06/16/18 13:02 Dose: 2 ml Sodium Chloride (Ns Flush) 2 ml IV.FLUSH UNSCH PRN PRN Reason: FLUSH AFTER USING IV ACCESS Sodium Chloride (Ns Flush) 0 ml IV.FLUSH DAILY [facility] Terbutaline Sulfate (Brethine Inj) 1 mg SQ UNSCH PRN PRN Reason: For Extravasation Allergies Allergy/AdvReac Type Severity Reaction Status Date / Time No Known Allergies Allergy Verified 06/16/18 06:46 Home Medications Medication Instructions Recorded Confirmed Type No Known Home Medications 06/16/18 06/16/18 History Advance Directives Living Will: No Healthcare Surrogate: No Power of Web Content Coordinator: No Physical Exam Vital Signs: Vital Signs - 24 hr 06/16/18 06:44 06/16/18 06:45 06/16/18 06:53 Pulse Rate 130 H Respiratory Rate 28 H Blood Pressure 206/144 H Pulse Oximetry 100 99 99 06/16/18 08:25 06/16/18 10:29 06/16/18 13:28 Pulse Rate Respiratory Rate 20 20 Blood Pressure Pulse Oximetry 92 L 99 98 I&O: Intake & Output 06/14/18 06/15/18 06/16/18 06/17/18 06:59 06:59 06:59 06:59 Weight 72.575 kg Physical Exam: CONSTITUTIONAL/GENERAL: This is an adequately nourished patient, alert, in no apparent distress. TUBES/LINES/DRAINS:PIV UE, central line, ETT, OGT, soft restraints BUE SKIN: No jaundice, rashes, or lesions. No wounds seen anteriorly. Skin warm/ dry. HEAD: Atraumatic. Normocephalic. EYES: Pupils equal and round and reactive. Extraocular motions intact. No scleral icterus. No injection or drainage. Fundi not examined. ENT: Hearing appears grossly normal. Nose without bleeding or purulent drainage. Limited oropharynx exam secondary to ET tube, OG tube no visible erythema or exudates.. NECK: Trachea midline. Supple, nontender. No palpable thyroid enlargement or nodularity. CARDIOVASCULAR: Regular rate and rhythm without murmur. No JVD. Peripheral pulses symmetric. Trace pedal edema bilaterally. RESPIRATORY/CHEST: Symmetric, unlabored respirations. Faint scattered rhonchi. Breath sounds equal bilaterally. GASTROINTESTINAL: Abdomen soft, non-tender, nondistended. No hepato-splenomegaly , or palpable masses. No guarding. Bowel sounds present. GENITOURINARY: Without palpable bladder distension. catheter in place. MUSCULOSKELETAL: Extremities without clubbing, cyanosis, or edema. No joint tenderness or effusion noted. No calf tenderness. No mottling or clubbing. LYMPHATICS: No palpable cervical or supraclavicular adenopathy. NEUROLOGICAL: Awake and alert-on mechanical vent however nods to some questions and able to write very weakly. Appears mostly oriented. Follows commands. Moves all 4 extremities well. PSYCHIATRIC: No obvious anxiety/depression. no apparent hallucinations or other psychotic thought process. Diagnostic Tests Laboratory: Laboratory Results - last 72 hr 06/16/18 06/16/18 06/16/18 06:50 06:50 06:50 WBC 8.3 RBC 4.37 L Hgb 14.3 POC Hgb (Calc) 14.6 Hct 44.2 POC Hct 43.0 MCV 101.1 H MCH 32.7 MCHC 32.4 RDW 14.3 Plt Count 209 MPV 10.6 Prelim Diff (Auto) Neut % (Auto) 56.8 Lymph % (Auto) 32.6 Amador % (Auto) 6.2 Eos % (Auto) 3.1 Baso % (Auto) 1.3 Neut # (Auto) 4.7 Lymph # (Auto) 2.7 [place] # (Auto) 0.5 Eos # (Auto) 0.3 Baso # (Auto) 0.1 WBC Differential . Seg Neuts % (Manual) Band Neuts % (Manual) Lymphocytes % (Manual) Monocytes % (Manual) Metamyelocytes % (Man) Promyelocytes % (Man) Abs Neuts (Manual) Differential Comment Auto diff final Platelet Estimate Platelet Morphology Ovalocytes PT 10.4 INR 1.0 APTT 24.1 L Puncture Site Patient Temperature O2 Saturation ABG pH ABG pCO2 ABG pO2 ABG HCO3 ABG O2 Content ABG Base Excess ABG Methemoglobin Hemoglobin Carboxyhemoglobin O2 Delivery Device Liter Flow Vent Setting Inspired O2 Critical Value POC Sodium 141 Sodium POC Potassium 4.6 Potassium POC Chloride 109 Chloride Carbon Dioxide Anion Gap POC BUN 26 H BUN Creatinine POC Creatinine 1.4 H Estimated GFR POC Glucose 232 H Random Glucose Lactic Acid Calcium 8.2 L Phosphorus Magnesium 2.3 Total Bilirubin AST ALT Alkaline Phosphatase Total Creatine Kinase 138 CK-MB (CK-2) 2.4 Troponin I 0.47 H B-Natriuretic Peptide Total Protein Albumin Triglycerides Cholesterol LDL Cholesterol, Calc HDL Cholesterol Cholesterol/HDL Ratio Vitamin B12 TSH 06/16/18 06/16/18 06/16/18 06:50 07:12 09:40 WBC RBC Hgb POC Hgb (Calc) Hct POC Hct MCV MCH MCHC RDW Plt Count MPV Prelim Diff (Auto) Neut % (Auto) Lymph % (Auto) [place] % (Auto) Eos % (Auto) Baso % (Auto) Neut # (Auto) Lymph # (Auto) [place] # (Auto) Eos # (Auto) Baso # (Auto) WBC Differential Seg Neuts % (Manual) Band Neuts % (Manual) Lymphocytes % (Manual) Monocytes % (Manual) Metamyelocytes % (Man) Promyelocytes % (Man) Abs Neuts (Manual) Differential Comment Platelet Estimate Platelet Morphology Ovalocytes PT INR APTT Puncture Site Art line Patient Temperature 98.6 O2 Saturation 94 ABG pH 7.23 L* ABG pCO2 45 H ABG pO2 118 ABG HCO3 18 L ABG O2 Content 17.4 ABG Base Excess -8.0 L ABG Methemoglobin 1.4 Hemoglobin 13.0 Carboxyhemoglobin 1.2 O2 Delivery Device Nrb Liter Flow 15.00 Vent Setting Inspired O2 Critical Value Yes POC Sodium Sodium POC Potassium Potassium POC Chloride Chloride Carbon Dioxide Anion Gap POC BUN BUN Creatinine POC Creatinine Estimated GFR POC Glucose Random Glucose Lactic Acid Calcium Phosphorus Magnesium Total Bilirubin AST ALT Alkaline Phosphatase Total Creatine Kinase CK-MB (CK-2) Troponin I B-Natriuretic Peptide 4327 H Total Protein Albumin Triglycerides Cancelled Cholesterol Cancelled LDL Cholesterol, Calc Cancelled HDL Cholesterol Cancelled Cholesterol/HDL Ratio Cancelled Vitamin B12 TSH 06/16/18 06/16/18 06/16/18 09:40 09:40 09:40 WBC 16.5 H D RBC 4.29 L Hgb 14.1 POC Hgb (Calc) Hct 41.9 POC Hct MCV 97.7 MCH 32.9 MCHC 33.7 RDW 13.9 Plt Count 221 MPV 10.5 Prelim Diff (Auto) Slide review pending Neut % (Auto) 83.5 H Lymph % (Auto) 8.7 L [place] % (Auto) 7.3 Eos % (Auto) 0.2 Baso % (Auto) 0.3 Neut # (Auto) 13.8 H Lymph # (Auto) 1.4 [place] # (Auto) 1.2 H Eos # (Auto) 0.0 Baso # (Auto) 0.1 WBC Differential Manual diff final Seg Neuts % (Manual) 84 H Band Neuts % (Manual) 1 Lymphocytes % (Manual) 5 L Monocytes % (Manual) 8 Metamyelocytes % (Man) 1 Promyelocytes % (Man) 1 H Abs Neuts (Manual) 14.4 H Differential Comment . Platelet Estimate Normal Platelet Morphology Clumped H Ovalocytes 1+ H PT INR APTT Puncture Site Patient Temperature O2 Saturation ABG pH ABG pCO2 ABG pO2 ABG HCO3 ABG O2 Content ABG Base Excess ABG Methemoglobin Hemoglobin Carboxyhemoglobin O2 Delivery Device Liter Flow Vent Setting Inspired O2 Critical Value POC Sodium Sodium POC Potassium Potassium POC Chloride Chloride Carbon Dioxide Anion Gap POC BUN BUN Creatinine POC Creatinine Estimated GFR POC Glucose Random Glucose Lactic Acid Calcium Phosphorus Magnesium Total Bilirubin AST ALT Alkaline Phosphatase Total Creatine Kinase CK-MB (CK-2) Troponin I B-Natriuretic Peptide Total Protein Albumin Triglycerides 97 Cholesterol 128 LDL Cholesterol, Calc 47 HDL Cholesterol 61.6 H Cholesterol/HDL Ratio 2.07 Vitamin B12 Cancelled 362 TSH Cancelled 3.290 06/16/18 06/16/18 06/16/18 09:40 09:40 10:10 WBC RBC Hgb POC Hgb (Calc) Hct POC Hct MCV MCH MCHC RDW Plt Count MPV Prelim Diff (Auto) Neut % (Auto) Lymph % (Auto) [place] % (Auto) Eos % (Auto) Baso % (Auto) Neut # (Auto) Lymph # (Auto) [place] # (Auto) Eos # (Auto) Baso # (Auto) WBC Differential Seg Neuts % (Manual) Band Neuts % (Manual) Lymphocytes % (Manual) Monocytes % (Manual) Metamyelocytes % (Man) Promyelocytes % (Man) Abs Neuts (Manual) Differential Comment Platelet Estimate Platelet Morphology Ovalocytes PT INR APTT Puncture Site [place] Patient Temperature 98.6 O2 Saturation 97 ABG pH 7.23 L* ABG pCO2 53 H* ABG pO2 359 H ABG HCO3 21 L ABG O2 Content 19.7 ABG Base Excess -4.9 L ABG Methemoglobin 1.4 Hemoglobin 13.8 Carboxyhemoglobin 0.5 O2 Delivery Device Ventilator Liter Flow Vent Setting See comments Inspired O2 100 Critical Value Yes POC Sodium Sodium 138 POC Potassium Potassium 3.8 POC Chloride Chloride 104 Carbon Dioxide 23.8 Anion Gap 10 POC BUN BUN 24 H Creatinine 1.67 H POC Creatinine Estimated GFR 36 L POC Glucose Random Glucose 192 H Lactic Acid 3.0 H Calcium 8.3 L Phosphorus 4.4 Magnesium 2.1 Total Bilirubin 0.5 AST 36 ALT 21 Alkaline Phosphatase 86 Total Creatine Kinase CK-MB (CK-2) Troponin I B-Natriuretic Peptide Total Protein 7.6 Albumin 3.1 L Triglycerides Cholesterol LDL Cholesterol, Calc HDL Cholesterol Cholesterol/HDL Ratio Vitamin B12 TSH 06/16/18 12:10 WBC RBC Hgb POC Hgb (Calc) Hct POC Hct MCV MCH MCHC RDW Plt Count MPV Prelim Diff (Auto) Neut % (Auto) Lymph % (Auto) [place] % (Auto) Eos % (Auto) Baso % (Auto) Neut # (Auto) Lymph # (Auto) [place] # (Auto) Eos # (Auto) Baso # (Auto) WBC Differential Seg Neuts % (Manual) Band Neuts % (Manual) Lymphocytes % (Manual) Monocytes % (Manual) Metamyelocytes % (Man) Promyelocytes % (Man) Abs Neuts (Manual) Differential Comment Platelet Estimate Platelet Morphology Ovalocytes PT INR APTT Puncture Site [place] Patient Temperature 98.6 O2 Saturation 96 ABG pH 7.34 L ABG pCO2 40 ABG pO2 129 H ABG HCO3 21 L ABG O2 Content 17.8 ABG Base Excess -3.9 L ABG Methemoglobin 1.6 Hemoglobin 13.1 Carboxyhemoglobin 0.8 O2 Delivery Device Ventilator Liter Flow Vent Setting See comments Inspired O2 60 Critical Value No POC Sodium Sodium POC Potassium Potassium POC Chloride Chloride Carbon Dioxide Anion Gap POC BUN BUN Creatinine POC Creatinine Estimated GFR POC Glucose Random Glucose Lactic Acid Calcium Phosphorus Magnesium Total Bilirubin AST ALT Alkaline Phosphatase Total Creatine Kinase CK-MB (CK-2) Troponin I B-Natriuretic Peptide Total Protein Albumin Triglycerides Cholesterol LDL Cholesterol, Calc HDL Cholesterol Cholesterol/HDL Ratio Vitamin B12 TSH Result Diagrams: 06/16/18 09:40 06/16/18 09:40 Imaging: Impressions Abdomen/Bladder Ultrasound 06/16/18 00:00 CONCLUSION: The kidneys are at the lower limits for normal in size. Otherwise, no abnormality is identified. There is no hydronephrosis. Chest X-Ray 06/16/18 00:00 CONCLUSION: 1. Cardiomegaly with pulmonary edema pattern. Chest X-Ray 06/16/18 10:19 CONCLUSION: 1. ETT in good position. 2. Left IJ central line with tip in the very proximal SVC. No pneumothorax. 3. Persistent pulmonary edema pattern. Procedures: 06/16 intubation 06/16 cardiac catheterization Patient/Family Conference Issues Discussed: Pt intubated, no family present. see H&P for limited discussion w pt. Assessment and Plan - Disease Oriented Problem List (1) Sciatica (2) History of alcohol abuse (3) ST elevation (STEMI) myocardial infarction - Symptom Scale (1) Pain 0-10 Scale: Unable to quantify (2) Dyspnea 0-10 Scale: Unable to quantify Pertinent Non-Medical Issues: Psychosocial:Prev lived at home alone. Spiritual:unk Legal:ACCURINT search has been requested 06/16/18 . If no family/NOK is able to be identified, may need to enlist outside decision maker such as [employer] to assist with decision making. Pt to exam is alert, appears partially to mostly oriented. Possible he may be medically extubated in the coming days and in this case he may be able to participate and make his own decisions, he also may be able to complete designation of healthcare surrogate. Today he is also requested I call a close friend named Jerome he indicates he would want this person called before his brother and trust her to make medical decisions. He confirms a brother in [facility]. I have left VM with Jerome. current Visit: Son Liz [id number] name is apparently Ashvin Painter (Stephen), 48 via prior EMR records found other name Melvin Painter, 48; listed possible parent/contact as [facility], (may be ?) [phone]. There is mention of a possible brother in [place]. Ethical issues impacting care: no ethical issues identified Important Contacts: Brother Nick Painter [place] [phone] , FACUNDO DO NOT GIVE TO PT: local friend Jerome Adair--- [phone] 2 sisters? . Prognosis: This pt was admitted from home for NSTEMI. + LAD occlusion, unable to open per cardiac catheterization. Required emergent intubation. Currently stable, neurologically intact. Possible he can get through this and return to prior status with ongoing aggressive treatment. At risk for further complications/ setbacks during this acute phase. Indicates previously in good overall health. Code Status: Full Code Plan: * Legal decision maker:[employer] search has been requested 06/16/18 . If no family /NOK is able to be identified, may need to enlist outside decision maker such as [employer] to assist with decision making. Pt to exam is alert, appears partially to mostly oriented. Possible he may be medically extubated in the coming days and in this case he may be able to participate and make his own decisions, he also may be able to complete designation of healthcare surrogate. Today he is also requested I call a close friend named Jerome he indicates he would want this person called before his brother and trust her to make medical decisions. He confirms a brother in [facility]. I have left VM with Jerome. current Visit: Son Liz [id number] name is apparently Ashvin Painter, 46 via prior EMR records found other name Melvin Painter, 46; listed possible parent/contact as [facility], (may be ?) [phone]. There is mention of a possible brother in [place]. 1600-- pt neighbor JEROME able to provide contact info for brother Nick. Spoke briefly to his , left Nick VM on facundo. * Goals: TBD, pending ID of appropriate legal decision makers. Pt alert and able to participate some via writing and nodding, indicates he wants to continue with treatment for his GA, medical conditions. * CODE STATUS: FULL CODE by default * SYMPTOMS: --dyspnea- emergently intubated, Currently breathing comfortably on mech vent , light sedation versed. Possible may be medically extubated in the coming days. --Pain-patient endorses history of sciatica pain to right hip and back however not having pain there currently. Currently does endorse pain to right eye. Exam is benign aside from tearing. Could have minor corneal abrasion, would recommend monitoring, could consider artificial tears drops, otherwise monitor for any further changes in physical exam to right eye. May require further eval by ophthalmology if discomfort persists. continue to evaluate. Other potential sources include Bedbound status, recent invasive procedures. * Palliative care will continue to follow during hospital course as condition evolves, to assist patient/decision-maker with understanding of medical conditions, weighing benefits/burdens of treatment options, for clarification of goals of treatment. Additionally will assist with any symptoms of palliative concern Appreciation Thank you for the opportunity to participate in the care of Son Liz. Attestation Attestation: To help prompt me to consider important information that might be impacting today's encounter and assessment, information from prior notes written by myself or my colleagues may have been "brought forward" into today's note. My signature on this note, however, is an attestation that I personally performed the exam, history, and/or decision-making noted today, and, unless otherwise indicated, the interactions with patient, family, and staff as well as the review of records all occurred today. I also attest that the listed assessment and stated plan reflect my best clinical judgment today based on the combination of historical information, prior notes, and today's exam/ interactions. When time spent is documented, it refers only to time spent today by the signer, or if indicated, combined time spent today by collaborating physician/nurse practitioner.
[2018-06-16 15:37] LABS: Creatinine,Urine Random 39 mg/dL (27-300)
[2018-06-16] MEDS: Senna/Docusate Sodium 8.6/50 MG Tablet PO SCH ×2 (16:01→21:25)
[2018-06-16] MEDS: Insulin NovoLOG Aspart Correctional Sugar Inj SQ SCH ×2 (16:14→18:59)
[2018-06-16] MEDS: Multivitamin Inj 10 ML, Thiamine Inj 100 MG, Folic Acid Inj 1 MG in Sodium Chlor 0.9% I... IV.SIG SCH (16:36)
[2018-06-16] MEDS: Oral Hygiene Kit OROPHARYNG SCH (17:25)
--- NOTE | 2018-06-16 20:54 | ECG ---
Date Performed: 06/16/2018 Time Performed: 06:42:56 PTAGE: 89 years EKG: SINUS TACHYCARDIA INDETERMINATE AXIS DEVIATION LOW QRS VOLTAGE IN EXTREMITY LEADS POSSIBLE RIGHT VENTRICULAR CONDUCTION DELAY ANTEROSEPTAL MYOCARDIAL INFARCTION NO PREVIOUS TRACING DOCTOR: Juliana Avalos Interpretating Date/Time 06/16/2018 20:53:31
[2018-06-16] MEDS: Chlorhexidine 0.12% Oral Kit 15 ML UDC OROPHARYNG SCH (21:24)
[2018-06-16] MEDS: Heparin - SQ 10,000 UNITS/ML Vial SQ SCH (21:25)
[2018-06-16] MEDS: Carboxymethylcellulose 0.5% Opth Drops 15 ML Bottle EACH EYE SCH (21:26)
[2018-06-17] MEDS: Insulin NovoLOG Aspart Correctional Sugar Inj SQ SCH ×4 (00:42→18:06)
[2018-06-17] MEDS: Oral Hygiene Kit OROPHARYNG SCH ×4 (00:43→16:25)
[2018-06-17] MEDS ORDERED: Chlorhexidine Gluconate 2% 1 Pack (2 Cloths) TOPICAL PRN (04:00)
[2018-06-17 05:49] LABS: Baso # (Auto) 0.1 th/mm3 (0.0-0.2); Baso % (Auto) 1.2 % (0.0-2.0); Eos # (Auto) 0.3 th/mm3 (0.0-0.4); Eos % (Auto) 2.7 % (0.0-4.0); Hematocrit 36.3 % (39.0-51.0); Hemoglobin 12.1 gm/dL (13.0-17.0); Lymph # (Auto) 1.6 th/mm3 (1.0-4.8); Lymph % (Auto) 17.6 % (9.0-44.0); Mean Corpuscular HGB Conc 33.4 % (32.0-36.0); Mean Corpuscular Hemoglobin 32.7 pg (27.0-34.0); Mean Platelet Volume 10.4 fL (7.0-11.0); Mono # (Auto) 0.7 th/mm3 (0.0-0.9); Mono % (Auto) 8.1 % (0.0-8.0); Neut # (Auto) 6.5 th/mm3 (1.8-7.7); Neut % (Auto) 70.4 % (16.0-70.0); Platelet Count 150 th/mm3 (150-450); White Blood Count 9.3 th/mm3 (4.0-11.0)
[2018-06-17] MEDS: Midazolam 50 MG/50 ML Inj 50 MG/50 ML BAG IV.CONT PRN ×3 (05:52→22:58)
[2018-06-17] MEDS: Chlorhexidine Gluconate 2% 1 Pack (2 Cloths) TOPICAL SCH (05:53)
[2018-06-17 05:56] LABS: Activated Partial Thrombo Time 23.2 sec (24.3-30.1); INR 1.1 Ratio; Prothrombin Time 10.9 sec (9.8-11.6)
[2018-06-17 06:15] LABS: Alanine Aminotransferase 22 U/L (12-78); Albumin 2.5 g/dL (3.4-5.0); Alkaline Phosphatase 62 U/L (45-117); Anion Gap 9 meq/L (5-15); Aspartate Aminotransferase 29 U/L (15-37); Blood Urea Nitrogen 29 mg/dL (7-18); Calcium 7.7 mg/dL (8.5-10.1); Chloride 108 meq/L (98-107); Glomerular Filtration Rate 36 mL/min (>89); Glucose,Random 116 mg/dL (74-106); Magnesium 1.7 mg/dL (1.5-2.5); Phosphorus 2.8 mg/dL (2.5-4.9); Potassium 3.6 meq/L (3.5-5.1); Sodium 142 meq/L (136-145); Total Protein 6.3 g/dL (6.4-8.2)
[2018-06-17] MEDS ORDERED: Potassium Chlor 40 mEq Premix 40 MEQ/100 ML PIGGYBACK IV.SIG ONE (06:28)
--- NOTE | 2018-06-17 07:20 | P.PNCC ---
Subjective Subjective Remarks/Hospital Course: This is a 67-year-old male. Actual name name is Ashvin Painter. Date of admission 06/16/2018. Past medical history includes sciatica. Patient is a former alcoholic but quit a few weeks ago prior to intubation. He has smoked for 50 years. Presents to [facility] today with chief complaint of chest pain. This is been present for the past week. Did not describe radiation of the neck the back and chest of the left arm prior to intubation. He was noted to have a low saturation on arrival of paramedics, however became combative due to claustrophobia on CPAP. N is placed on 100% nonrebreather, given sublingual nitrogen and furosemide Stimulator was called as patient had ST elevation in the anterior/lateral leads. Patient went to [facility] was noted to have mid to distal LAD 100%, diagonal 50%. 100 percent to left circumflex. 40% % RCA. Ejection fraction 15 -20%. Failed PCI to LAD. Patient was started on clevidipine drip due to hypertension.\\ I have asked the patient, patient was acidotic and tachypnea. Received 40 of IV furosemide in the [facility] and along with started on carvedilol 650 twice daily and lisinopril 10 mg twice daily. Due to the pulmonary edema, we are intubated the patient with 20 mg time and 50 mg of rocuronium. Central line is in place. Arterial has been placed SUBJECTIVE: 06/17: Afebrile. Diuresing with furosemide 40 mg IV twice daily. Please magnesium and potassium this a.m. Tube feeds currently at 20 cc an hour. On low-dose norepinephrine drip. Sedated with fentanyl and midazolam. Objective Vital Signs / I&O: Vital Signs 06/16/18 08:18 06/16/18 08:25 06/16/18 10:15 Temperature 98 F Pulse Rate 120 H 123 H Respiratory Rate 26 H Blood Pressure 161/104 H 233/112 H Pulse Oximetry 92 L 06/16/18 10:29 06/16/18 11:00 06/16/18 13:28 Temperature 98.1 F Pulse Rate 111 H Respiratory Rate 20 20 20 Blood Pressure 124/64 Pulse Oximetry 99 98 06/16/18 15:00 06/16/18 16:10 06/16/18 17:22 Temperature 98.4 F Pulse Rate 88 Respiratory Rate 20 20 20 Blood Pressure 136/78 Pulse Oximetry 99 06/16/18 20:00 06/16/18 20:23 06/16/18 23:30 Temperature 97.7 F Pulse Rate 76 76 Respiratory Rate 20 20 20 Blood Pressure 95/72 L Pulse Oximetry 99 99 99 06/16/18 23:34 06/17/18 00:00 06/17/18 03:27 Temperature 97.5 F L Pulse Rate 75 78 94 H Respiratory Rate 24 20 20 Blood Pressure 101/70 Pulse Oximetry 98 06/17/18 04:35 Temperature Pulse Rate Respiratory Rate 20 Blood Pressure Pulse Oximetry 98 Intake & Output 06/16/18 06/17/18 06/17/18 18:59 06:59 18:59 Intake Total 360.9 / 360.9 611.2 / 611.2 Output Total 1570 / 1570 Balance -1209.1 / -1209.1 611.2 / 611.2 Intake: IV 350.9 / 350.9 611.2 / 611.2 Versed Inj 50 mg In 50 ml @ 2 100 / 100 MG/HR 2 mls/hr IV.CONT TITRATE PRN Rx#:[id number] Levophed Inj 16 MG In NS Inj 250 / 250 234 ML @ 2 MCG/MIN 1.87 mls/hr IV.CONT TITRATE PRN Rx#: [id number] Diprivan 1000 mg/100 ml Inj 1, 0.9 / 0.9 000 mg In 100 ml @ 5 MCG/KG/MIN 2.177 mls/hr IV.CONT TITRATE PRN Rx#:[id number] MVI-12 Inj 10 ML Thiamine Inj 511.2 / 511.2 100 MG Folvite Inj 1 MG In NS Inj 500 ML @ 125 mls/hr IV.SIG Q24H LAURA Rx#:[id number] KCl 20 mEq Premix Inj 20 meq In 100 / 100 100 ml @ 50 mls/hr IV.SIG ONCE ONE Rx#:[id number] Tube Feeding Output: Urine Amount (Catheter) 1570 / 1570 Indwelling Urethral Catheter 1570 / 1570 Result Diagrams: 06/17/18 05:15 06/17/18 05:15 Imaging: ITS Impressions Abdomen/Bladder Ultrasound 06/16/18 00:00 CONCLUSION: The kidneys are at the lower limits for normal in size. Otherwise, no abnormality is identified. There is no hydronephrosis. Chest X-Ray 06/16/18 10:19 CONCLUSION: 1. ETT in good position. 2. Left IJ central line with tip in the very proximal SVC. No pneumothorax. 3. Persistent pulmonary edema pattern. Objective Remarks: GENERAL: 67-year-old male currently resting in bed in no acute distress orotracheally intubated SKIN: Warm and dry. HEAD: Atraumatic. Normocephalic. EYES: Pupils equal and round. No scleral icterus. No injection or drainage. ENT: No nasal bleeding or discharge. Mucous membranes pink and moist. NECK: Trachea midline. No JVD. CARDIOVASCULAR: Regular rate and rhythm. S1, S2. No S4. No murmur RESPIRATORY: Coarse rhonchorous breath sounds bilateral lower lobes. Positive prolonged expiratory phase/wheeze. GASTROINTESTINAL: Abdomen soft, non-tender, nondistended. Hepatic and splenic margins not palpable. MUSCULOSKELETAL: Extremities without clubbing, cyanosis, or edema. No obvious deformities. NEUROLOGICAL: Arousable on the ventilator and opens eyes spontaneously. Squeezes hands bilateral Assessment and Plan - Assessment and Plan Plan: Neuro/Psych: History of EtOH Patient is currently on midazolam at 6 mg an hour/fentanyl drips at 50 mg an hour for sedation/analgesia while intubated Goal of RASS -2 Daily sedation vacation Acetaminophen 650 mg every 6 hours as needed fever We will start on vitamin bag daily 3 days. Currently day #2. Start thiamine on day 4 CV: Anterior STEMI Acute systolic heart failure Essential hypertension Hyperlipidemia Coronary artery disease Followed by cardiology/Dr. Sadler Heart catheterization revealed ejection fraction 15-20%. Mid to distal LAD and a percent. Diagonal 50%. Left circumflex 100%. RCA 40%. Failed LAD PCI Currently on aspirin 81 mg daily Started on carvedilol 6.25 twice daily and lisinopril 10 mg twice daily for hypertension off vasopressors On atorvastatin 10 mg daily for dyslipidemia.. Lipid profile reviewed. Currently on norepinephrine drip at 4 mcg/min to maintain medial chest pressure greater than equal to 65 On furosemide 40 mg IV twice daily Resp: Acute respiratory failure secondary pleural effusions/pulmonary edema Tobaccoism PRVC 18/525/0.9/8/40 Ventilator bundle Albuterol/ipratropium aerosols every 4 hours with albuterol aerosols every 2 hours as needed for dyspnea Spontaneous breathing trials when clinically indicated ABG/chest x-ray in a.m. 06/18 Tobacco cessation education provided when appropriate GI: Hypoalbuminemia Start on tube feedings Jevity 1.5 goal 50 cc an hour Pantoprazole for GI prophylaxis Docusate sodium/senna 1 tablet twice daily for bowel regimen : Whitaker catheter for accurate I's and O/diuretic use Endo: Acute hyperglycemia Start sliding scale insulin Accu-Cheks to maintain glycemia/every 6 hours aspart Hemoglobin A1c is 6.0. TSH is 3.9 Renal: Acute kidney injury Creatinine is currently 1.6 Check renal ultrasound and urine eosinophils Heme: Normocytic anemia Monitor CBC daily. Follow trends. No indication for transfusion of blood products at this time ID: Monitor for signs and symptomatology infection FEN: Replace electrolytes as clinically indicated per ICU electrolyte protocol MSK: Physical therapy evaluate and treat Access -Left IJ CVL placed 06/16 -Left radial arterial line placed 06/16 Prophylaxis -GI -pantoprazole -DVT -SCD/heparin subcu Admission. 35 minutes critical care time
[2018-06-17] MEDS ORDERED: Magnesium Sulfate Inj 4 GM in Dextrose 5% in Water Inj 100 ML IV.SIG ONE ×2 (08:00)
[2018-06-17] MEDS: Senna/Docusate Sodium 8.6/50 MG Tablet PO SCH ×2 (08:32→21:30)
[2018-06-17] MEDS: Pantoprazole Inj 40 MG Vial IV.PUSH SCH (08:32)
[2018-06-17] MEDS: Lisinopril 10 MG Tablet PO SCH ×2 (08:33→21:35)
[2018-06-17] MEDS: Heparin - SQ 10,000 UNITS/ML Vial SQ SCH ×2 (08:33→21:29)
[2018-06-17] MEDS: Chlorhexidine 0.12% Oral Kit 15 ML UDC OROPHARYNG SCH ×2 (08:33→21:30)
[2018-06-17] MEDS: Carvedilol 6.25 MG Tablet PO SCH (08:33)
[2018-06-17 09:04] LABS: ABG Base Excess 1.9 mmol/L (-2-2); ABG PCO2 34 mmHg (38-42); ABG PO2 94 mmHG (61-120)
[2018-06-17] MEDS ORDERED: Mag Sulf 1 gm/100 ml Premix 100 ML IV.SIG ONE (09:33)
--- NOTE | 2018-06-17 09:53 | P.PNCA ---
Subjective Interval history: Intubated and sedated Medications and Allergies Active Medications: Active Medications Acetaminophen (Tylenol Liq) 650 mg PO Q6H PRN PRN Reason: FEVER Al Hydroxide/Mg Hydroxide (Milk Of Magnesia Liq) 30 ml PO Q12H PRN PRN Reason: Mild Constipation Albuterol (Albuterol Neb (Prn)) 2.5 mg NEB Q2HR NEB PRN PRN Reason: SHORTNESS OF BREATH/WHEEZING Albuterol (Duoneb Neb ([facility])) 1 ampul NEB Q4HR NEB [facility] Last Admin: 06/17/18 08:42 Dose: 1 ampul Artificial Tears (Refresh Tears 0.5% Opth Drops) 1 drop EACH EYE BID [facility] Last Admin: 06/16/18 21:26 Dose: 1 drop Aspirin (Aspirin Chew) 81 mg PO DAILY [facility] Last Admin: 06/17/18 08:32 Dose: 81 mg Atorvastatin Calcium (Lipitor) 10 mg PO HS [facility] Last Admin: 06/16/18 21:25 Dose: 10 mg Bisacodyl (Dulcolax Supp) 10 mg RECTAL DAILY PRN PRN Reason: SEVERE CONSITIPATION Chlorhexidine Gluconate (Chlorhexidine 2% Cloth) 3 pack TOPICAL DAILY@0400 [facility] Stop: 06/22/18 03:59 Last Admin: 06/17/18 05:53 Dose: 3 pack Chlorhexidine Gluconate (Chlorhexidine 2% Cloth) 3 pack TOPICAL DAILY@0400 PRN PRN Reason: Extra cloth needed Stop: 06/22/18 03:59 Chlorhexidine Gluconate (Peridex 0.12% Oral Kit) 15 ml OROPHARYNG BID@0800, 2000 [facility] Last Admin: 06/17/18 08:33 Dose: 15 ml Dextrose (D50w Vial) 50 ml IV.PUSH UNSCH PRN PRN Reason: PER HYPOGLYCEMIA PROTOCOL Furosemide (Lasix Inj) 40 mg IV.PUSH BID@0900,1800 [facility] Last Admin: 06/17/18 08:32 Dose: 40 mg Glucagon (Glucagon Inj) 1 mg OTHER UNSCH PRN PRN Reason: for Hypoglycemia Protocol Heparin Sodium (Porcine) (Heparin Inj) 5,000 units SQ Q12HR [facility] Last Admin: 06/17/18 08:33 Dose: 5,000 units Clevidipine (Cleviprex Inj) 25 mg in 50 mls @ 2 mls/hr IV.CONT TITRATE PRN; Protocol PRN Reason: Per protocol Last Admin: 06/16/18 08:18 Dose: 2 mg/hr, 4 mls/hr Magnesium Sulfate 4 gm/ Sodium (Chloride) 100 mls @ 50 mls/hr IV.SIG UNSCH PRN PRN Reason: For Magnesium 0.9 - 1.1 mg/dL Potassium Chloride (Kcl 40 Meq Premix Inj) 40 meq in 100 mls @ 50 mls/hr IV.SIG Q2H PRN PRN Reason: For Potassium 2.8 - 3.2 mEq/L Potassium Chloride (Kcl 20 Meq Premix Inj) 20 meq in 100 mls @ 50 mls/hr IV.SIG Q2H PRN PRN Reason: For Potassium 3.3 - 3.5 mEq/L Potassium Chloride (Kcl 40 Meq Premix Inj) 40 meq in 100 mls @ 25 mls/hr IV.SIG UNSCH PRN PRN Reason: For Potassium 3.3 - 3.5 mEq/L Potassium Chloride (Kcl 20 Meq Premix Inj) 20 meq in 100 mls @ 50 mls/hr IV.SIG Q2H PRN PRN Reason: For Potassium 2.8 - 3.2 mEq/L Potassium Phosphate 30 mmol/ (Sodium Chloride) 260 mls @ 42 mls/hr IV.SIG UNSCH PRN PRN Reason: SEE LABEL COMMENTS Sodium Phosphate 30 mmol/ (Sodium Chloride) 260 mls @ 42 mls/hr IV.SIG UNSCH PRN PRN Reason: For Phosphorus < 2.5 mg/dL Magnesium Sulfate 2 gm/ Sodium (Chloride) 100 mls @ 50 mls/hr IV.SIG UNSCH PRN PRN Reason: For Magnesium 1.2 - 1.6 mg/dL Fentanyl (Fentanyl 10 Mcg/Ml Premix Drip) 2,500 mcg in 250 mls @ 5 mls/hr IV.SIG TITRATE PRN; Protocol PRN Reason: Per Protocol Last Titration: 06/17/18 02:59 Dose: 50 mcg/hr, 5 mls/hr Midazolam HCl (Versed Inj) 50 mg in 50 mls @ 2 mls/hr IV.CONT TITRATE PRN; Protocol PRN Reason: Per Protocol Last Admin: 06/17/18 05:52 Dose: 5 mg/hr, 5 mls/hr Multivitamins 10 ml/ Thiamine HCl 100 mg/ Folic Acid 1 mg/Sodium Chloride 511.2 mls @ 125 mls/hr IV.SIG Q24H [facility]URA Stop: 06/18/18 18:06 Last Infusion: 06/16/18 19:55 Dose: Infused Norepinephrine Bitartrate 16 (mg/ Sodium Chloride) 250 mls @ 1.87 mls/hr IV.CONT TITRATE PRN; Protocol PRN Reason: See Protocol Last Titration: 06/17/18 02:59 Dose: 4 mcg/min, 3.75 mls/hr Magnesium Sulfate 4 gm/ (Dextrose) 108 mls @ 25 mls/hr IV.SIG ONCE ONE Stop: 06/17/18 12:19 Last Admin: 06/17/18 08:31 Dose: 25 mls/hr Potassium Chloride (Kcl 40 Meq Premix Inj) 40 meq in 100 mls @ 25 mls/hr IV.SIG ONCE ONE Stop: 06/17/18 10:27 Last Admin: 06/17/18 08:32 Dose: 25 mls/hr Magnesium Sulfate/Dextrose (Magnesium Sulfate 1 Gm/D5w 100 Ml Premix) 100 mls @ 100 mls/hr IV.SIG ONCE ONE Stop: 06/17/18 10:32 Insulin Aspart (Novolog Insulin [employer] Sugar Inj) 0 unit SQ Q6HR LAURA; Protocol Last Admin: 06/17/18 05:58 Dose: Not Given Lactulose (Lactulose Liq) 30 ml PO DAILY PRN PRN Reason: SEVERE CONSITIPATION Lisinopril (Prinivil) 10 mg PO BID [facility] Last Admin: 06/17/18 08:33 Dose: Not Given Magnesium Oxide (Mag-Ox) 800 mg PO UNSCH PRN PRN Reason: For Magnesium 1.2 - 1.6 mg/dL Metoprolol Tartrate (Lopressor) 25 mg PO BID [facility] Miscellaneous Medication () 1 each OROPHARYNG 0000,0400,1200,1600 [facility] Last Admin: 06/17/18 05:57 Dose: 1 each Pantoprazole Sodium (Protonix Inj) 40 mg IV.PUSH DAILY [facility] Last Admin: 06/17/18 08:32 Dose: 40 mg Potassium Bicarb/Potassium Chloride (K-Lyte Cl Eff) 50 meq PO UNSCH PRN PRN Reason: For Potassium 3.3 - 3.5 mEq/L Potassium Chloride (K-Dur) 20 meq PO TID [facility] Last Admin: 06/17/18 08:34 Dose: Not Given Potassium Phosphate (K-Phos Original) 2,000 mg PO UNSCH PRN PRN Reason: SEE LABEL COMMENTS Potassium Phosphate (K-Phos Original) 2,000 mg PO Q4H PRN PRN Reason: Phosphorus Less Than 2.5 mg/dL Senna/Docusate Sodium (Adia-Colace) 1 tab PO BID [facility] Last Admin: 06/17/18 08:32 Dose: 1 tab Sennosides (Senokot) 17.2 mg PO Q12H PRN PRN Reason: Moderate Constipation Sodium Chloride (Ns Flush) 2 ml IV.FLUSH BID [facility] Last Admin: 06/17/18 08:44 Dose: 2 ml Sodium Chloride (Ns Flush) 2 ml IV.FLUSH UNSCH PRN PRN Reason: FLUSH AFTER USING IV ACCESS Sodium Chloride (Ns Flush) 0 ml IV.FLUSH DAILY [facility] Sterile Water (Free Water) 100 ml G-TUBE Q8HR [facility] Terbutaline Sulfate (Brethine Inj) 1 mg SQ UNSCH PRN PRN Reason: For Extravasation Allergies Allergy/AdvReac Type Severity Reaction Status Date / Time No Known Allergies Allergy Verified 06/16/18 06:46 Home Medications Medication Instructions Recorded Confirmed Type No Known Home Medications 06/16/18 06/16/18 History Physical Exam Vital signs: Vital Signs 06/16/18 10:15 06/16/18 10:29 06/16/18 11:00 Temperature 98.1 F Pulse Rate 123 H 111 H Respiratory Rate 20 20 Blood Pressure 233/112 H 124/64 Pulse Oximetry 99 06/16/18 13:28 06/16/18 15:00 06/16/18 16:10 Temperature 98.4 F Pulse Rate 88 Respiratory Rate 20 20 20 Blood Pressure 136/78 Pulse Oximetry 98 99 06/16/18 17:22 06/16/18 20:00 06/16/18 20:23 Temperature 97.7 F Pulse Rate 76 76 Respiratory Rate 20 20 20 Blood Pressure 95/72 L Pulse Oximetry 99 99 06/16/18 23:30 06/16/18 23:34 06/17/18 00:00 Temperature 97.5 F L Pulse Rate 75 78 Respiratory Rate 20 24 20 Blood Pressure 101/70 Pulse Oximetry 99 98 06/17/18 03:27 06/17/18 04:00 06/17/18 04:35 Temperature 98.6 F Pulse Rate 94 H 91 H Respiratory Rate 20 20 20 Blood Pressure 129/83 Pulse Oximetry 99 98 06/17/18 07:00 Temperature Pulse Rate 82 Respiratory Rate 20 Blood Pressure 93/42 L Pulse Oximetry 97 Intake & Output 06/16/18 06/17/18 06/17/18 18:59 06:59 18:59 Intake Total 360.9 / 360.9 847.2 / 847.2 300 / 300 Output Total 1570 / 1570 965 / 965 Balance -1209.1 / -1209.1 -117.8 / -117.8 300 / 300 Weight 68 kg Intake: IV 350.9 / 350.9 611.2 / 611.2 300 / 300 Versed Inj 50 mg In 50 ml @ 2 100 / 100 MG/HR 2 mls/hr IV.CONT TITRATE PRN Rx#:[id number] Levophed Inj 16 MG In NS Inj 250 / 250 234 ML @ 2 MCG/MIN 1.87 mls/hr IV.CONT TITRATE PRN Rx#: [id number] Diprivan 1000 mg/100 ml Inj 1, 0.9 / 0.9 000 mg In 100 ml @ 5 MCG/KG/MIN 2.177 mls/hr IV.CONT TITRATE PRN Rx#:[id number] MVI-12 Inj 10 ML Thiamine Inj 511.2 / 511.2 100 MG Folvite Inj 1 MG In NS Inj 500 ML @ 125 mls/hr IV.SIG Q24H LAURA Rx#:[id number] KCl 20 mEq Premix Inj 20 meq In 100 / 100 100 ml @ 50 mls/hr IV.SIG ONCE ONE Rx#:[id number] Oral 0 / 0 Tube Feeding 236 / 236 Output: Urine Amount (Catheter) 1570 / 1570 965 / 965 Indwelling Urethral Catheter 1570 / 1570 965 / 965 Other: # Bowel Movements 0 Narrative: Sedated supine on vent CVP appears nl Chest diminished anteriorly CV S1S2 RRR, HR 90's Edema gone now - Urinary Catheter Management Indwelling Urethral Catheter Cath placed during this visit: yes Reason for continuing: Hourly intake/output Insertion date: 06/16/18 Results 06/17/18 05:15 06/17/18 05:15 Cardiac Enzymes 06/16/18 06/16/18 06/16/18 Range/Units 06:50 06:50 09:40 AST 36 (15-37) U/L CK-MB (CK-2) 2.4 (0.5-3.6) ng/mL Troponin I 0.47 H (0.02-0.05) ng/mL B-Natriuretic Peptide 4327 H (0-100) pg/mL 06/17/18 Range/Units 05:15 AST 29 (15-37) U/L CK-MB (CK-2) (0.5-3.6) ng/mL Troponin I (0.02-0.05) ng/mL B-Natriuretic Peptide (0-100) pg/mL Coagulation 06/16/18 06/16/18 06/17/18 Range/Units 06:50 06:50 05:15 PT 10.4 10.9 (9.8-11.6) sec APTT 24.1 L 23.2 L (24.3-30.1) sec B-Natriuretic Peptide 4327 H (0-100) pg/mL Lipids 06/16/18 06/16/18 Range/Units 09:40 09:40 Triglycerides Cancelled 97 Cholesterol Cancelled 128 HDL Cholesterol Cancelled 61.6 H Cholesterol/HDL Ratio Cancelled 2.07 CBC 06/16/18 06/16/18 06/17/18 Range/Units 06:50 09:40 05:15 WBC 8.3 16.5 H D 9.3 (4.0-11.0) th/mm3 RBC 4.37 L 4.29 L 3.70 L (4.50-5.90) mil/mm3 Hgb 14.3 14.1 12.1 L D (13.0-17.0) gm/dL Hct 44.2 41.9 36.3 L (39.0-51.0) % Plt Count 209 221 150 D (150-450) th/mm3 Neut # (Auto) 4.7 13.8 H 6.5 (1.8-7.7) th/mm3 Lymph # (Auto) 2.7 1.4 1.6 (1.0-4.8) th/mm3 [place] # (Auto) 0.5 1.2 H 0.7 (0.0-0.9) th/mm3 Eos # (Auto) 0.3 0.0 0.3 (0.0-0.4) th/mm3 Baso # (Auto) 0.1 0.1 0.1 (0.0-0.2) th/mm3 Comprehensive Metabolic Panel 06/16/18 06/16/18 06/17/18 Range/Units 06:50 09:40 05:15 Sodium 138 142 (136-145) meq/L Potassium 3.8 3.6 (3.5-5.1) meq/L Chloride 104 108 H (98-107) meq/L Carbon Dioxide 23.8 25.0 (21.0-32.0) meq/L BUN 24 H 29 H (7-18) mg/dL Creatinine 1.67 H 1.67 H (0.60-1.30) mg/dL Calcium 8.2 L 8.3 L 7.7 L (8.5-10.1) mg/dL AST 36 29 (15-37) U/L ALT 21 22 (12-78) U/L Alkaline Phosphatase 86 62 (45-117) U/L Total Protein 7.6 6.3 L D (6.4-8.2) g/dL Albumin 3.1 L 2.5 L D (3.4-5.0) g/dL Intake and Output 06/16/18 06/17/18 06/17/18 22:59 06:59 14:59 Intake Total 821.2 / 821.2 286 / 286 300 / 300 Output Total 1570 / 1570 965 / 965 Balance -748.8 / -748.8 -679 / -679 300 / 300 Intake: IV 811.2 / 811.2 50 / 50 300 / 300 Versed Inj 50 mg In 50 ml @ 2 50 / 50 50 / 50 MG/HR 2 mls/hr IV.CONT TITRATE PRN Rx#:[id number] Levophed Inj 16 MG In NS Inj 250 / 250 234 ML @ 2 MCG/MIN 1.87 mls/hr IV.CONT TITRATE PRN Rx#: [id number] MVI-12 Inj 10 ML Thiamine Inj 511.2 / 511.2 100 MG Folvite Inj 1 MG In NS Inj 500 ML @ 125 mls/hr IV.SIG Q24H [facility] Rx#:[id number] Oral 0 / 0 Tube Feeding 236 / 236 Output: Urine Amount (Catheter) 1570 / 1570 965 / 965 Indwelling Urethral Catheter 1570 / 1570 965 / 965 Other: # Bowel Movements 0 Weight 68 kg - Imaging and Cardiology Imaging: Impressions Abdomen/Bladder Ultrasound 06/16/18 00:00 CONCLUSION: The kidneys are at the lower limits for normal in size. Otherwise, no abnormality is identified. There is no hydronephrosis. Chest X-Ray 06/16/18 00:00 CONCLUSION: 1. Cardiomegaly with pulmonary edema pattern. Chest X-Ray 06/16/18 10:19 CONCLUSION: 1. ETT in good position. 2. Left IJ central line with tip in the very proximal SVC. No pneumothorax. 3. Persistent pulmonary edema pattern. Assessment and Plan - Assessment (1) Anterior myocardial infarction Code(s): I21.09 - ST elevation (STEMI) myocardial infarction involving other coronary artery of anterior wall Status: Acute (2) Acute systolic CHF (congestive heart failure) Code(s): I50.21 - Acute systolic (congestive) heart failure Status: Acute (3) Tobacco abuse Code(s): Z72.0 - Tobacco use Status: Acute (4) Cardiogenic shock Code(s): R57.0 - Cardiogenic shock Status: Acute (5) 2-vessel coronary artery disease Code(s): I25.10 - Atherosclerotic heart disease of [place] coronary artery without angina pectoris Status: Acute (6) Occlusion of LAD (left anterior descending) artery Code(s): I24.0 - Acute coronary thrombosis not resulting in myocardial infarction Status: Acute - Plan Anterior [place] probably 3-4 weeks ago - CPK is normal proving it is not acute LEF 15% - in shock on IV norepinephrine, prognosis very poor.
[2018-06-17] MEDS: Carboxymethylcellulose 0.5% Opth Drops 15 ML Bottle EACH EYE SCH ×2 (10:23→21:30)
[2018-06-17] MEDS: Metoprolol Tartrate 25 MG Tablet PO SCH ×2 (10:24→21:35)
[2018-06-17] MEDS: Multivitamin Inj 10 ML, Thiamine Inj 100 MG, Folic Acid Inj 1 MG in Sodium Chlor 0.9% I... IV.SIG SCH (13:31)
--- NOTE | 2018-06-17 15:18 | P.PNPAL ---
Reason for Visit Reason for visit: a. To assist with evaluation and management of symptoms including: dyspnea, pain b. To assist medical decision maker(s) with: better understanding of current medical conditions; weighing benefits/burdens of medical treatment options; making medical treatment decisions. Subjective Subjective/Interval History: Pt seen today to follow up on comfort, goals. Call from pt brother, robyn, requesting update prior to my arrival on unit. Has remained stable in ICU. On mech vent. On versed, fentanyl for sedation, on norepinephrine for bp support. Tolerating TF. CBC stable, unremarkable, chemistry stable unremarkable. To my exam pt sedated, does not stir-- did not vigorously attempt to arouse, he is on versed 6mg, fentanyl 50mcgs, nursing indicates has been following commands when lightened. He appears comfortable. Call Back to brother provided him medical update. Review recent labs, diagnostics, current clinical assessment and overall prognosis. Review that patient is stable though condition is still guarded. Reviewed that the hope would be if he remains stable may consider ventilator weaning in the coming days and initiate rehabilitation efforts. Review that long-term cardiac outcome is not known in the his heart function is currently significantly diminished secondary to acute STEMI not known level of recovery heart function will obtain. All questions answered to the best my ability. He wishes to cont available treatments to help pt's recovery. He is palliative contact information. He will check in with me again tomorrow morning--he indicates he will be in an area without cell phone nurse receptionist so he will check in with me in the morning to check patient condition. Objective Vital Signs: Vital Signs 06/16/18 15:00 06/16/18 16:10 06/16/18 17:22 Temperature 98.4 F Pulse Rate 88 Respiratory Rate 20 20 20 Blood Pressure 136/78 Pulse Oximetry 99 06/16/18 20:00 06/16/18 20:23 06/16/18 23:30 Temperature 97.7 F Pulse Rate 76 76 Respiratory Rate 20 20 20 Blood Pressure 95/72 L Pulse Oximetry 99 99 99 06/16/18 23:34 06/17/18 00:00 06/17/18 03:27 Temperature 97.5 F L Pulse Rate 75 78 94 H Respiratory Rate 24 20 20 Blood Pressure 101/70 Pulse Oximetry 98 06/17/18 04:00 06/17/18 04:35 06/17/18 07:00 Temperature 98.6 F Pulse Rate 91 H 82 Respiratory Rate 20 20 20 Blood Pressure 129/83 93/42 L Pulse Oximetry 99 98 97 06/17/18 08:45 06/17/18 11:00 06/17/18 11:11 Temperature 98.7 F Pulse Rate 85 88 90 Respiratory Rate 21 16 16 Blood Pressure 98/55 L Pulse Oximetry 98 97 06/17/18 11:13 06/17/18 14:14 Temperature Pulse Rate Respiratory Rate 16 16 Blood Pressure Pulse Oximetry 97 Intake & Output 06/16/18 06/17/18 06/17/18 18:59 06:59 18:59 Intake Total 360.9 / 360.9 847.2 / 847.2 664.7 / 664.7 Output Total 1570 / 1570 965 / 965 Balance -1209.1 / -1209.1 -117.8 / -117.8 664.7 / 664.7 Weight 68 kg Intake: IV 350.9 / 350.9 611.2 / 611.2 664.7 / 664.7 Cleviprex Inj 25 mg In 50 ml @ 14.7 / 14.7 1 MG/HR 2 mls/hr IV.CONT TITRATE PRN Rx#:[id number] Versed Inj 50 mg In 50 ml @ 2 100 / 100 50 / 50 MG/HR 2 mls/hr IV.CONT TITRATE PRN Rx#:[id number] Levophed Inj 16 MG In NS Inj 250 / 250 234 ML @ 2 MCG/MIN 1.87 mls/hr IV.CONT TITRATE PRN Rx#: [id number] Diprivan 1000 mg/100 ml Inj 1, 0.9 / 0.9 000 mg In 100 ml @ 5 MCG/KG/MIN 2.177 mls/hr IV.CONT TITRATE PRN Rx#:[id number] Magnesium Sulfate 1 gm/D5W 100 100 / 100 ml Premix 100 ML @ 100 mls/hr IV.SIG ONCE ONE Rx#:[id number] Magnesium Sulfate Inj 4 GM In 100 / 100 D5W Inj 100 ML @ 25 mls/hr IV. SIG ONCE ONE Rx#:[id number] MVI-12 Inj 10 ML Thiamine Inj 511.2 / 511.2 100 MG Folvite Inj 1 MG In NS Inj 500 ML @ 125 mls/hr IV.SIG Q24H LAURA Rx#:[id number] KCl 20 mEq Premix Inj 20 meq In 100 / 100 100 ml @ 50 mls/hr IV.SIG ONCE ONE Rx#:[id number] KCl 40 mEq Premix Inj 40 meq In 100 / 100 100 ml @ 25 mls/hr IV.SIG ONCE ONE Rx#:[id number] Oral 0 / 0 Tube Feeding 236 / 236 Output: Urine Amount (Catheter) 1570 / 1570 965 / 965 Indwelling Urethral Catheter 1570 / 1570 965 / 965 Other: # Bowel Movements 0 Physical Exam: CONSTITUTIONAL/GENERAL: This is an adequately nourished patient, sedated, in no apparent distress. TUBES/LINES/DRAINS:PIV UE, central line, ETT, OGT, soft restraints BUE SKIN: No jaundice, rashes, or lesions. No wounds seen anteriorly. Skin warm/ dry. CARDIOVASCULAR: Regular rate and rhythm without murmur. No JVD. Peripheral pulses symmetric. Trace pedal edema bilaterally. RESPIRATORY/CHEST: Symmetric, unlabored respirations via ETT to mech vent. Clear. Breath sounds equal bilaterally. GASTROINTESTINAL: Abdomen soft, non-tender, nondistended. No hepato-splenomegaly , or palpable masses. No guarding. Bowel sounds present. GENITOURINARY: Without palpable bladder distension. catheter in place. MUSCULOSKELETAL: Extremities without clubbing, cyanosis, or edema. No joint tenderness or effusion noted. No calf tenderness. No mottling or clubbing. NEUROLOGICAL: sedated on mechanical vent, did not vigorously stimulate for my exam. PSYCHIATRIC: No obvious anxiety/depression. on sedation Diagnostic Tests Laboratory: Laboratory Results - last 72 hr 06/16/18 06/16/18 06/16/18 06:50 06:50 06:50 WBC 8.3 RBC 4.37 L Hgb 14.3 POC Hgb (Calc) 14.6 Hct 44.2 POC Hct 43.0 MCV 101.1 H MCH 32.7 MCHC 32.4 RDW 14.3 Plt Count 209 MPV 10.6 Prelim Diff (Auto) Neut % (Auto) 56.8 Lymph % (Auto) 32.6 Hoke % (Auto) 6.2 Eos % (Auto) 3.1 Baso % (Auto) 1.3 Neut # (Auto) 4.7 Lymph # (Auto) 2.7 Hoke # (Auto) 0.5 Eos # (Auto) 0.3 Baso # (Auto) 0.1 WBC Differential . Seg Neuts % (Manual) Band Neuts % (Manual) Lymphocytes % (Manual) Monocytes % (Manual) Metamyelocytes % (Man) Promyelocytes % (Man) Abs Neuts (Manual) Differential Comment Auto diff final Platelet Estimate Platelet Morphology Ovalocytes PT 10.4 INR 1.0 APTT 24.1 L Puncture Site Patient Temperature O2 Saturation ABG pH ABG pCO2 ABG pO2 ABG HCO3 ABG O2 Content ABG Base Excess ABG Methemoglobin Hemoglobin Carboxyhemoglobin O2 Delivery Device Liter Flow Vent Setting Inspired O2 Critical Value POC Sodium 141 Sodium POC Potassium 4.6 Potassium POC Chloride 109 Chloride Carbon Dioxide Anion Gap POC BUN 26 H BUN Creatinine POC Creatinine 1.4 H Estimated GFR POC Glucose 232 H Random Glucose Hemoglobin A1c Lactic Acid Calcium 8.2 L Phosphorus Magnesium 2.3 Total Bilirubin AST ALT Alkaline Phosphatase Total Creatine Kinase 138 CK-MB (CK-2) 2.4 Troponin I 0.47 H B-Natriuretic Peptide Total Protein Albumin Triglycerides Cholesterol LDL Cholesterol, Calc HDL Cholesterol Cholesterol/HDL Ratio Vitamin B12 TSH Urine Eosinophils Ur Random Creatinine Ur Random Sodium Nasal Screen MRSA (PCR) 06/16/18 06/16/18 06/16/18 06:50 07:12 09:40 WBC RBC Hgb POC Hgb (Calc) Hct POC Hct MCV MCH MCHC RDW Plt Count MPV Prelim Diff (Auto) Neut % (Auto) Lymph % (Auto) Hoke % (Auto) Eos % (Auto) Baso % (Auto) Neut # (Auto) Lymph # (Auto) Hoke # (Auto) Eos # (Auto) Baso # (Auto) WBC Differential Seg Neuts % (Manual) Band Neuts % (Manual) Lymphocytes % (Manual) Monocytes % (Manual) Metamyelocytes % (Man) Promyelocytes % (Man) Abs Neuts (Manual) Differential Comment Platelet Estimate Platelet Morphology Ovalocytes PT INR APTT Puncture Site Art line Patient Temperature 98.6 O2 Saturation 94 ABG pH 7.23 L* ABG pCO2 45 H ABG pO2 118 ABG HCO3 18 L ABG O2 Content 17.4 ABG Base Excess -8.0 L ABG Methemoglobin 1.4 Hemoglobin 13.0 Carboxyhemoglobin 1.2 O2 Delivery Device Nrb Liter Flow 15.00 Vent Setting Inspired O2 Critical Value Yes POC Sodium Sodium POC Potassium Potassium POC Chloride Chloride Carbon Dioxide Anion Gap POC BUN BUN Creatinine POC Creatinine Estimated GFR POC Glucose Random Glucose Hemoglobin A1c Lactic Acid Calcium Phosphorus Magnesium Total Bilirubin AST ALT Alkaline Phosphatase Total Creatine Kinase CK-MB (CK-2) Troponin I B-Natriuretic Peptide 4327 H Total Protein Albumin Triglycerides Cancelled Cholesterol Cancelled LDL Cholesterol, Calc Cancelled HDL Cholesterol Cancelled Cholesterol/HDL Ratio Cancelled Vitamin B12 TSH Urine Eosinophils Ur Random Creatinine Ur Random Sodium Nasal Screen MRSA (PCR) 06/16/18 06/16/18 06/16/18 09:40 09:40 09:40 WBC RBC Hgb POC Hgb (Calc) Hct POC Hct MCV MCH MCHC RDW Plt Count MPV Prelim Diff (Auto) Neut % (Auto) Lymph % (Auto) Hoke % (Auto) Eos % (Auto) Baso % (Auto) Neut # (Auto) Lymph # (Auto) Hoke # (Auto) Eos # (Auto) Baso # (Auto) WBC Differential Seg Neuts % (Manual) Band Neuts % (Manual) Lymphocytes % (Manual) Monocytes % (Manual) Metamyelocytes % (Man) Promyelocytes % (Man) Abs Neuts (Manual) Differential Comment Platelet Estimate Platelet Morphology Ovalocytes PT INR APTT Puncture Site Patient Temperature O2 Saturation ABG pH ABG pCO2 ABG pO2 ABG HCO3 ABG O2 Content ABG Base Excess ABG Methemoglobin Hemoglobin Carboxyhemoglobin O2 Delivery Device Liter Flow Vent Setting Inspired O2 Critical Value POC Sodium Sodium POC Potassium Potassium POC Chloride Chloride Carbon Dioxide Anion Gap POC BUN BUN Creatinine POC Creatinine Estimated GFR POC Glucose Random Glucose Hemoglobin A1c 6.0 Lactic Acid Calcium Phosphorus Magnesium Total Bilirubin AST ALT Alkaline Phosphatase Total Creatine Kinase CK-MB (CK-2) Troponin I B-Natriuretic Peptide Total Protein Albumin Triglycerides 97 Cholesterol 128 LDL Cholesterol, Calc 47 HDL Cholesterol 61.6 H Cholesterol/HDL Ratio 2.07 Vitamin B12 Cancelled 362 TSH Cancelled 3.290 Urine Eosinophils Ur Random Creatinine Ur Random Sodium Nasal Screen MRSA (PCR) 06/16/18 06/16/18 06/16/18 09:40 09:40 09:40 WBC 16.5 H D RBC 4.29 L Hgb 14.1 POC Hgb (Calc) Hct 41.9 POC Hct MCV 97.7 MCH 32.9 MCHC 33.7 RDW 13.9 Plt Count 221 MPV 10.5 Prelim Diff (Auto) Slide review pending Neut % (Auto) 83.5 H Lymph % (Auto) 8.7 L Hoke % (Auto) 7.3 Eos % (Auto) 0.2 Baso % (Auto) 0.3 Neut # (Auto) 13.8 H Lymph # (Auto) 1.4 Hoke # (Auto) 1.2 H Eos # (Auto) 0.0 Baso # (Auto) 0.1 WBC Differential Manual diff final Seg Neuts % (Manual) 84 H Band Neuts % (Manual) 1 Lymphocytes % (Manual) 5 L Monocytes % (Manual) 8 Metamyelocytes % (Man) 1 Promyelocytes % (Man) 1 H Abs Neuts (Manual) 14.4 H Differential Comment . Platelet Estimate Normal Platelet Morphology Clumped H Ovalocytes 1+ H PT INR APTT Puncture Site Patient Temperature O2 Saturation ABG pH ABG pCO2 ABG pO2 ABG HCO3 ABG O2 Content ABG Base Excess ABG Methemoglobin Hemoglobin Carboxyhemoglobin O2 Delivery Device Liter Flow Vent Setting Inspired O2 Critical Value POC Sodium Sodium 138 POC Potassium Potassium 3.8 POC Chloride Chloride 104 Carbon Dioxide 23.8 Anion Gap 10 POC BUN BUN 24 H Creatinine 1.67 H POC Creatinine Estimated GFR 36 L POC Glucose Random Glucose 192 H Hemoglobin A1c Lactic Acid 3.0 H Calcium 8.3 L Phosphorus 4.4 Magnesium 2.1 Total Bilirubin 0.5 AST 36 ALT 21 Alkaline Phosphatase 86 Total Creatine Kinase CK-MB (CK-2) Troponin I B-Natriuretic Peptide Total Protein 7.6 Albumin 3.1 L Triglycerides Cholesterol LDL Cholesterol, Calc HDL Cholesterol Cholesterol/HDL Ratio Vitamin B12 TSH Urine Eosinophils Ur Random Creatinine Ur Random Sodium Nasal Screen MRSA (PCR) 06/16/18 06/16/18 06/16/18 10:10 12:10 15:00 WBC RBC Hgb POC Hgb (Calc) Hct POC Hct MCV MCH MCHC RDW Plt Count MPV Prelim Diff (Auto) Neut % (Auto) Lymph % (Auto) Hoke % (Auto) Eos % (Auto) Baso % (Auto) Neut # (Auto) Lymph # (Auto) Hoke # (Auto) Eos # (Auto) Baso # (Auto) WBC Differential Seg Neuts % (Manual) Band Neuts % (Manual) Lymphocytes % (Manual) Monocytes % (Manual) Metamyelocytes % (Man) Promyelocytes % (Man) Abs Neuts (Manual) Differential Comment Platelet Estimate Platelet Morphology Ovalocytes PT INR APTT Puncture Site Beth Campos Patient Temperature 98.6 98.6 O2 Saturation 97 96 ABG pH 7.23 L* 7.34 L ABG pCO2 53 H* 40 ABG pO2 359 H 129 H ABG HCO3 21 L 21 L ABG O2 Content 19.7 17.8 ABG Base Excess -4.9 L -3.9 L ABG Methemoglobin 1.4 1.6 Hemoglobin 13.8 13.1 Carboxyhemoglobin 0.5 0.8 O2 Delivery Device Ventilator Ventilator Liter Flow Vent Setting See comments See comments Inspired O2 100 60 Critical Value Yes No POC Sodium Sodium POC Potassium Potassium POC Chloride Chloride Carbon Dioxide Anion Gap POC BUN BUN Creatinine POC Creatinine Estimated GFR POC Glucose Random Glucose Hemoglobin A1c Lactic Acid Calcium Phosphorus Magnesium Total Bilirubin AST ALT Alkaline Phosphatase Total Creatine Kinase CK-MB (CK-2) Troponin I B-Natriuretic Peptide Total Protein Albumin Triglycerides Cholesterol LDL Cholesterol, Calc HDL Cholesterol Cholesterol/HDL Ratio Vitamin B12 TSH Urine Eosinophils Ur Random Creatinine 39 Ur Random Sodium 93 Nasal Screen MRSA (PCR) 06/16/18 06/16/18 06/16/18 15:00 16:11 17:10 WBC RBC Hgb POC Hgb (Calc) Hct POC Hct MCV MCH MCHC RDW Plt Count MPV Prelim Diff (Auto) Neut % (Auto) Lymph % (Auto) Hoke % (Auto) Eos % (Auto) Baso % (Auto) Neut # (Auto) Lymph # (Auto) Hoke # (Auto) Eos # (Auto) Baso # (Auto) WBC Differential Seg Neuts % (Manual) Band Neuts % (Manual) Lymphocytes % (Manual) Monocytes % (Manual) Metamyelocytes % (Man) Promyelocytes % (Man) Abs Neuts (Manual) Differential Comment Platelet Estimate Platelet Morphology Ovalocytes PT INR APTT Puncture Site Patient Temperature O2 Saturation ABG pH ABG pCO2 ABG pO2 ABG HCO3 ABG O2 Content ABG Base Excess ABG Methemoglobin Hemoglobin Carboxyhemoglobin O2 Delivery Device Liter Flow Vent Setting Inspired O2 Critical Value POC Sodium Sodium POC Potassium Potassium POC Chloride Chloride Carbon Dioxide Anion Gap POC BUN BUN Creatinine POC Creatinine Estimated GFR POC Glucose 136 H Random Glucose Hemoglobin A1c Lactic Acid Calcium Phosphorus Magnesium Total Bilirubin AST ALT Alkaline Phosphatase Total Creatine Kinase CK-MB (CK-2) Troponin I B-Natriuretic Peptide Total Protein Albumin Triglycerides Cholesterol LDL Cholesterol, Calc HDL Cholesterol Cholesterol/HDL Ratio Vitamin B12 TSH Urine Eosinophils None seen Ur Random Creatinine Ur Random Sodium Nasal Screen MRSA (PCR) Not detected 06/16/18 06/17/18 06/17/18 18:58 00:26 05:15 WBC 9.3 RBC 3.70 L Hgb 12.1 L D POC Hgb (Calc) Hct 36.3 L POC Hct MCV 98.0 MCH 32.7 MCHC 33.4 RDW 14.0 Plt Count 150 D MPV 10.4 Prelim Diff (Auto) Neut % (Auto) 70.4 H Lymph % (Auto) 17.6 Hoke % (Auto) 8.1 H Eos % (Auto) 2.7 Baso % (Auto) 1.2 Neut # (Auto) 6.5 Lymph # (Auto) 1.6 Hoke # (Auto) 0.7 Eos # (Auto) 0.3 Baso # (Auto) 0.1 WBC Differential . Seg Neuts % (Manual) Band Neuts % (Manual) Lymphocytes % (Manual) Monocytes % (Manual) Metamyelocytes % (Man) Promyelocytes % (Man) Abs Neuts (Manual) Differential Comment Auto diff final Platelet Estimate Platelet Morphology Ovalocytes PT INR APTT Puncture Site Patient Temperature O2 Saturation ABG pH ABG pCO2 ABG pO2 ABG HCO3 ABG O2 Content ABG Base Excess ABG Methemoglobin Hemoglobin Carboxyhemoglobin O2 Delivery Device Liter Flow Vent Setting Inspired O2 Critical Value POC Sodium Sodium POC Potassium Potassium POC Chloride Chloride Carbon Dioxide Anion Gap POC BUN BUN Creatinine POC Creatinine Estimated GFR POC Glucose 131 H 106 Random Glucose Hemoglobin A1c Lactic Acid Calcium Phosphorus Magnesium Total Bilirubin AST ALT Alkaline Phosphatase Total Creatine Kinase CK-MB (CK-2) Troponin I B-Natriuretic Peptide Total Protein Albumin Triglycerides Cholesterol LDL Cholesterol, Calc HDL Cholesterol Cholesterol/HDL Ratio Vitamin B12 TSH Urine Eosinophils Ur Random Creatinine Ur Random Sodium Nasal Screen MRSA (PCR) 06/17/18 06/17/18 06/17/18 05:15 05:15 05:15 WBC RBC Hgb POC Hgb (Calc) Hct POC Hct MCV MCH MCHC RDW Plt Count MPV Prelim Diff (Auto) Neut % (Auto) Lymph % (Auto) Hoke % (Auto) Eos % (Auto) Baso % (Auto) Neut # (Auto) Lymph # (Auto) [place]oke # (Auto) Eos # (Auto) Baso # (Auto) WBC Differential Seg Neuts % (Manual) Band Neuts % (Manual) Lymphocytes % (Manual) Monocytes % (Manual) Metamyelocytes % (Man) Promyelocytes % (Man) Abs Neuts (Manual) Differential Comment Platelet Estimate Platelet Morphology Ovalocytes PT 10.9 INR 1.1 APTT 23.2 L Puncture Site Patient Temperature O2 Saturation ABG pH ABG pCO2 ABG pO2 ABG HCO3 ABG O2 Content ABG Base Excess ABG Methemoglobin Hemoglobin Carboxyhemoglobin O2 Delivery Device Liter Flow Vent Setting Inspired O2 Critical Value POC Sodium Sodium 142 POC Potassium Potassium 3.6 POC Chloride Chloride 108 H Carbon Dioxide 25.0 Anion Gap 9 POC BUN BUN 29 H Creatinine 1.67 H POC Creatinine Estimated GFR 36 L POC Glucose Random Glucose 116 H Hemoglobin A1c Lactic Acid 0.9 Calcium 7.7 L Phosphorus 2.8 D Magnesium 1.7 Total Bilirubin 0.5 AST 29 ALT 22 Alkaline Phosphatase 62 Total Creatine Kinase CK-MB (CK-2) Troponin I B-Natriuretic Peptide Total Protein 6.3 L D Albumin 2.5 L D Triglycerides Cholesterol LDL Cholesterol, Calc HDL Cholesterol Cholesterol/HDL Ratio Vitamin B12 TSH Urine Eosinophils Ur Random Creatinine Ur Random Sodium Nasal Screen MRSA (PCR) 06/17/18 06/17/18 06/17/18 05:22 08:37 12:03 WBC RBC Hgb POC Hgb (Calc) Hct POC Hct MCV MCH MCHC RDW Plt Count MPV Prelim Diff (Auto) Neut % (Auto) Lymph % (Auto) Hoke % (Auto) Eos % (Auto) Baso % (Auto) Neut # (Auto) Lymph # (Auto) [place] # (Auto) Eos # (Auto) Baso # (Auto) WBC Differential Seg Neuts % (Manual) Band Neuts % (Manual) Lymphocytes % (Manual) Monocytes % (Manual) Metamyelocytes % (Man) Promyelocytes % (Man) Abs Neuts (Manual) Differential Comment Platelet Estimate Platelet Morphology Ovalocytes PT INR APTT Puncture Site Art line Patient Temperature 98.6 O2 Saturation 95 ABG pH 7.48 H ABG pCO2 34 L ABG pO2 94 ABG HCO3 25 ABG O2 Content 18.6 ABG Base Excess 1.9 ABG Methemoglobin 1.5 Hemoglobin 13.8 Carboxyhemoglobin 0.9 O2 Delivery Device Ventilator Liter Flow Vent Setting 20/525/[id number] Inspired O2 40 Critical Value No POC Sodium Sodium POC Potassium Potassium POC Chloride Chloride Carbon Dioxide Anion Gap POC BUN BUN Creatinine POC Creatinine Estimated GFR POC Glucose 123 H 149 H Random Glucose Hemoglobin A1c Lactic Acid Calcium Phosphorus Magnesium Total Bilirubin AST ALT Alkaline Phosphatase Total Creatine Kinase CK-MB (CK-2) Troponin I B-Natriuretic Peptide Total Protein Albumin Triglycerides Cholesterol LDL Cholesterol, Calc HDL Cholesterol Cholesterol/HDL Ratio Vitamin B12 TSH Urine Eosinophils Ur Random Creatinine Ur Random Sodium Nasal Screen MRSA (PCR) Result Diagrams: 06/17/18 05:15 06/17/18 05:15 Microbiology: Microbiology 06/16/18 21:00 Gram Stain - Final Sputum - Endotracheal Sputum Culture - Preliminary Immature growth - reincubate Imaging: Impressions Abdomen/Bladder Ultrasound 06/16/18 00:00 CONCLUSION: The kidneys are at the lower limits for normal in size. Otherwise, no abnormality is identified. There is no hydronephrosis. Chest X-Ray 06/16/18 00:00 CONCLUSION: 1. Cardiomegaly with pulmonary edema pattern. Chest X-Ray 06/16/18 10:19 CONCLUSION: 1. ETT in good position. 2. Left IJ central line with tip in the very proximal SVC. No pneumothorax. 3. Persistent pulmonary edema pattern. Procedures: 06/16 intubation 06/16 cardiac catheterization Assessment and Plan - Disease Oriented Problem List (1) Sciatica (2) History of alcohol abuse (3) ST elevation (STEMI) myocardial infarction Pertinent Non-Medical Issues: Psychosocial:Prev lived at home alone. Spiritual:unk Legal:ACCURINT search has been requested 06/16/18 . If no family/NOK is able to be identified, may need to enlist outside decision maker such as [employer] to assist with decision making. Pt to exam is alert, appears partially to mostly oriented. Possible he may be medically extubated in the coming days and in this case he may be able to participate and make his own decisions, he also may be able to complete designation of healthcare surrogate. Today he is also requested I call a close friend named Martha he indicates he would want this person called before his brother and trust her to make medical decisions. He confirms a brother in [facility]. I have left VM with Martha. current Visit: Son Liz [phone] name is apparently Ashvin (Liliana Painter, 48 via prior EMR records found other name Melvin Painter, 48; listed possible parent/contact as Kenya Painter, (may be ?) [phone]. There is mention of a possible brother in [place]. Ethical issues impacting care: no ethical issues identified Important Contacts: Brother Nick Painter, [place] [phone] , ROSIO DO NOT GIVE TO PT: local friend Martha Adair--- [phone] 2 sisters? . Prognosis: This pt was admitted from home for NSTEMI. + LAD occlusion, unable to open per cardiac catheterization. Required emergent intubation. Currently stable, neurologically intact. Possible he can get through this and return to prior status with ongoing aggressive treatment. At risk for further complications/ setbacks during this acute phase. oil heaterman cardiac level of recovery not known at this time. Indicates previously in good overall health. Code Status: Full Code Plan: * Legal decision maker: Possible he may be medically extubated in the coming days and in this case he may be able to participate and make his own decisions. Able to write/designate HCS Brother Nick on 06/16/18 * Goals: aggressive per brother, cont available treatments. Pt alert and able to participate some via writing and nodding, indicates he wants to continue with treatment for his ND, medical conditions. * CODE STATUS: FULL CODE by default * SYMPTOMS: --dyspnea- emergently intubated, Currently breathing comfortably on [facility] vent , light sedation versed + fentanyl. Possible may be medically extubated in the coming days. --Pain-patient endorsed history of sciatica pain to right hip and back however not having pain there currently. endorsed pain to right eye. Exam is benign . Could have minor corneal abrasion, would recommend monitoring, could consider artificial tears drops, otherwise monitor for any further changes in physical exam to right eye. May require further eval by ophthalmology if discomfort persists. continue to evaluate. Other potential sources include Bedbound status, recent invasive procedures. * Palliative care will continue to follow during hospital course as condition evolves, to assist patient/decision-maker with understanding of medical conditions, weighing benefits/burdens of treatment options, for clarification of goals of treatment. Additionally will assist with any symptoms of palliative concern Attestation Attestation: To help prompt me to consider important information that might be impacting today's encounter and assessment, information from prior notes written by myself or my colleagues may have been "brought forward" into today's note. My signature on this note, however, is an attestation that I personally performed the exam, history, and/or decision-making noted today, and, unless otherwise indicated, the interactions with patient, family, and staff as well as the review of records all occurred today. I also attest that the listed assessment and stated plan reflect my best clinical judgment today based on the combination of historical information, prior notes, and today's exam/ interactions. When time spent is documented, it refers only to time spent today by the signer, or if indicated, combined time spent today by collaborating physician/nurse practitioner.
[2018-06-17 22:35] LABS: Potassium 3.4 meq/L (3.5-5.1)
[2018-06-17 22:46] LABS: Magnesium 2.4 mg/dL (1.5-2.5)
--- NOTE | 2018-06-18 05:00 | XR ---
EXAM DATE: 06/18/2018 6:00 AM EDT AGE/SEX: 67 years / Male INDICATIONS: Respiratory failure. CLINICAL DATA: This is the patient's subsequent encounter. Patient reports that signs and symptoms h ave been present for 3 days and indicates a pain score of Nonresponsive. MEDICAL/SURGICAL HISTORY: Congestive heart failure. Sciatica. . Right wrist injury repair. [place] [facility] [place]. . FINDINGS: Mild consolidation of both mid and lower lungs again seen with small bilateral effusions. No pneumoth orax. Heart size stable, within normal limits. Endotracheal tube tip is approximately 5 cm above the nina. There is a new nasogastric tube that co urses into the stomach. Left internal jugular central venous catheter with tip in the superior vena c sebastian unchanged. CONCLUSION: No significant change mid and lower lung consolidation with small effusions on both sides. Electronically signed by: Son Monreal MD 06/18/2018 4:59 AM EDT
[2018-06-18 05:32] LABS: Baso % (Auto) 0.6 % (0.0-2.0); Eos # (Auto) 0.2 th/mm3 (0.0-0.4); Eos % (Auto) 2.4 % (0.0-4.0); Hematocrit 34.6 % (39.0-51.0); Hemoglobin 11.5 gm/dL (13.0-17.0); Lymph # (Auto) 1.4 th/mm3 (1.0-4.8); Lymph % (Auto) 17.5 % (9.0-44.0); Mean Corpuscular HGB Conc 33.4 % (32.0-36.0); Mean Corpuscular Hemoglobin 32.8 pg (27.0-34.0); Mean Corpuscular Volume 98.3 fL (80.0-100.0); Mean Platelet Volume 10.4 fL (7.0-11.0); Mono # (Auto) 0.7 th/mm3 (0.0-0.9); Mono % (Auto) 9.5 % (0.0-8.0); Neut # (Auto) 5.5 th/mm3 (1.8-7.7); Platelet Count 129 th/mm3 (150-450); Red Blood Count 3.52 mil/mm3 (4.50-5.90); Red Cell Distribution Width 14.3 % (11.6-17.2); White Blood Count 7.8 th/mm3 (4.0-11.0)
[2018-06-18 05:42] LABS: Calcium 7.3 mg/dL (8.5-10.1); Carbon Dioxide 27.1 meq/L (21.0-32.0); Magnesium 2.6 mg/dL (1.5-2.5); Phosphorus 2.1 mg/dL (2.5-4.9); Potassium 3.8 meq/L (3.5-5.1)
[2018-06-18 05:54] LABS: Total Protein 6.2 g/dL (6.4-8.2)
[2018-06-18 05:57] LABS: ABG Base Excess 2.3 mmol/L (-2-2); ABG PCO2 37 mmHg (38-42); ABG PO2 94 mmHG (61-120)
[2018-06-18] MEDS: Insulin NovoLOG Aspart Correctional Sugar Inj SQ SCH ×4 (06:24→18:07)
[2018-06-18] MEDS: Midazolam 50 MG/50 ML Inj 50 MG/50 ML BAG IV.CONT PRN (06:25)
[2018-06-18] MEDS: Chlorhexidine Gluconate 2% 1 Pack (2 Cloths) TOPICAL SCH (06:25)
[2018-06-18] MEDS: Oral Hygiene Kit OROPHARYNG SCH ×3 (06:25→15:56)
[2018-06-18] MEDS: Heparin - SQ 10,000 UNITS/ML Vial SQ SCH ×2 (08:01→20:07)
[2018-06-18] MEDS: Senna/Docusate Sodium 8.6/50 MG Tablet PO SCH ×2 (08:01→20:08)
[2018-06-18] MEDS: Lisinopril 10 MG Tablet PO SCH ×2 (08:02→20:08)
[2018-06-18] MEDS: Carboxymethylcellulose 0.5% Opth Drops 15 ML Bottle EACH EYE SCH ×2 (08:02→20:08)
[2018-06-18] MEDS: Metoprolol Tartrate 25 MG Tablet PO SCH ×2 (08:02→20:08)
[2018-06-18] MEDS: Pantoprazole Inj 40 MG Vial IV.PUSH SCH (08:02)
[2018-06-18] MEDS: Chlorhexidine 0.12% Oral Kit 15 ML UDC OROPHARYNG SCH ×2 (08:04→20:08)
--- NOTE | 2018-06-18 08:45 | P.PNCA ---
Subjective Interval history: Intubated and sedated Medications and Allergies Active Medications: Active Medications Acetaminophen (Tylenol Liq) 650 mg PO Q6H PRN PRN Reason: FEVER Al Hydroxide/Mg Hydroxide (Milk Of Magnesia Liq) 30 ml PO Q12H PRN PRN Reason: Mild Constipation Albuterol (Albuterol Neb (Prn)) 2.5 mg NEB Q2HR NEB PRN PRN Reason: SHORTNESS OF BREATH/WHEEZING Albuterol (Duoneb Neb ([facility])) 1 ampul NEB Q4HR NEB [facility] Last Admin: 06/18/18 07:58 Dose: 1 ampul Artificial Tears (Refresh Tears 0.5% Opth Drops) 1 drop EACH EYE BID [facility] Last Admin: 06/18/18 08:02 Dose: 1 drop Aspirin (Aspirin Chew) 81 mg PO DAILY [facility] Last Admin: 06/18/18 08:01 Dose: 81 mg Atorvastatin Calcium (Lipitor) 10 mg PO HS [facility] Last Admin: 06/17/18 21:30 Dose: 10 mg Bisacodyl (Dulcolax Supp) 10 mg RECTAL DAILY PRN PRN Reason: SEVERE CONSITIPATION Chlorhexidine Gluconate (Chlorhexidine 2% Cloth) 3 pack TOPICAL DAILY@0400 [facility] Stop: 06/22/18 03:59 Last Admin: 06/18/18 06:25 Dose: 3 pack Chlorhexidine Gluconate (Chlorhexidine 2% Cloth) 3 pack TOPICAL DAILY@0400 PRN PRN Reason: Extra cloth needed Stop: 06/22/18 03:59 Chlorhexidine Gluconate (Peridex 0.12% Oral Kit) 15 ml OROPHARYNG BID@0800, 2000 [facility] Last Admin: 06/18/18 08:04 Dose: 15 ml Dextrose (D50w Vial) 50 ml IV.PUSH UNSCH PRN PRN Reason: PER HYPOGLYCEMIA PROTOCOL Furosemide (Lasix Inj) 40 mg IV.PUSH BID@0900,1800 [facility] Last Admin: 06/18/18 08:01 Dose: 40 mg Glucagon (Glucagon Inj) 1 mg OTHER UNSCH PRN PRN Reason: for Hypoglycemia Protocol Heparin Sodium (Porcine) (Heparin Inj) 5,000 units SQ Q12HR [facility] Last Admin: 06/18/18 08:01 Dose: 5,000 units Clevidipine (Cleviprex Inj) 25 mg in 50 mls @ 2 mls/hr IV.CONT TITRATE PRN; Protocol PRN Reason: Per protocol Last Titration: 06/17/18 12:36 Dose: Infused Magnesium Sulfate 4 gm/ Sodium (Chloride) 100 mls @ 50 mls/hr IV.SIG UNSCH PRN PRN Reason: For Magnesium 0.9 - 1.1 mg/dL Potassium Chloride (Kcl 40 Meq Premix Inj) 40 meq in 100 mls @ 50 mls/hr IV.SIG Q2H PRN PRN Reason: For Potassium 2.8 - 3.2 mEq/L Last Infusion: 06/18/18 01:00 Dose: Infused Potassium Chloride (Kcl 20 Meq Premix Inj) 20 meq in 100 mls @ 50 mls/hr IV.SIG Q2H PRN PRN Reason: For Potassium 3.3 - 3.5 mEq/L Potassium Chloride (Kcl 40 Meq Premix Inj) 40 meq in 100 mls @ 25 mls/hr IV.SIG UNSCH PRN PRN Reason: For Potassium 3.3 - 3.5 mEq/L Potassium Chloride (Kcl 20 Meq Premix Inj) 20 meq in 100 mls @ 50 mls/hr IV.SIG Q2H PRN PRN Reason: For Potassium 2.8 - 3.2 mEq/L Potassium Phosphate 30 mmol/ (Sodium Chloride) 260 mls @ 42 mls/hr IV.SIG UNSCH PRN PRN Reason: SEE LABEL COMMENTS Sodium Phosphate 30 mmol/ (Sodium Chloride) 260 mls @ 42 mls/hr IV.SIG UNSCH PRN PRN Reason: For Phosphorus < 2.5 mg/dL Magnesium Sulfate 2 gm/ Sodium (Chloride) 100 mls @ 50 mls/hr IV.SIG UNSCH PRN PRN Reason: For Magnesium 1.2 - 1.6 mg/dL Fentanyl (Fentanyl 10 Mcg/Ml Premix Drip) 2,500 mcg in 250 mls @ 5 mls/hr IV.SIG TITRATE PRN; Protocol PRN Reason: Per Protocol Last Titration: 06/17/18 02:59 Dose: 50 mcg/hr, 5 mls/hr Midazolam HCl (Versed Inj) 50 mg in 50 mls @ 2 mls/hr IV.CONT TITRATE PRN; Protocol PRN Reason: Per Protocol Last Admin: 06/18/18 06:25 Dose: 5 mg/hr, 5 mls/hr Multivitamins 10 ml/ Thiamine HCl 100 mg/ Folic Acid 1 mg/Sodium Chloride 511.2 mls @ 125 mls/hr IV.SIG Q24H [facility] Stop: 06/18/18 18:06 Last Infusion: 06/17/18 17:37 Dose: Infused Norepinephrine Bitartrate 16 (mg/ Sodium Chloride) 250 mls @ 1.87 mls/hr IV.CONT TITRATE PRN; Protocol PRN Reason: See Protocol Last Titration: 06/17/18 02:59 Dose: 4 mcg/min, 3.75 mls/hr Insulin Aspart (Novolog Insulin Correctional Sugar Inj) 0 unit SQ Q6HR [facility]; Protocol Last Admin: 06/18/18 06:29 Dose: Not Given Lactulose (Lactulose Liq) 30 ml PO DAILY PRN PRN Reason: SEVERE CONSITIPATION Lisinopril (Prinivil) 10 mg PO BID [facility] Last Admin: 06/18/18 08:02 Dose: Not Given Magnesium Oxide (Mag-Ox) 800 mg PO UNSCH PRN PRN Reason: For Magnesium 1.2 - 1.6 mg/dL Metoprolol Tartrate (Lopressor) 25 mg PO BID [facility] Last Admin: 06/18/18 08:02 Dose: Not Given Miscellaneous Medication () 1 each OROPHARYNG 0000,0400,1200,1600 [facility] Last Admin: 06/18/18 06:25 Dose: 1 each Pantoprazole Sodium (Protonix Inj) 40 mg IV.PUSH DAILY [facility] Last Admin: 06/18/18 08:02 Dose: 40 mg Potassium Bicarb/Potassium Chloride (K-Lyte Cl Eff) 50 meq PO UNSCH PRN PRN Reason: For Potassium 3.3 - 3.5 mEq/L Potassium Bicarb/Potassium Chloride (K-Lyte Cl Eff) 25 meq PO TID [facility] Potassium Phosphate (K-Phos Original) 2,000 mg PO UNSCH PRN PRN Reason: SEE LABEL COMMENTS Potassium Phosphate (K-Phos Original) 2,000 mg PO Q4H PRN PRN Reason: Phosphorus Less Than 2.5 mg/dL Senna/Docusate Sodium (Adia-Colace) 1 tab PO BID [facility] Last Admin: 06/18/18 08:01 Dose: 1 tab Sennosides (Senokot) 17.2 mg PO Q12H PRN PRN Reason: Moderate Constipation Sodium Chloride (Ns Flush) 2 ml IV.FLUSH BID [facility] Last Admin: 06/18/18 08:03 Dose: 2 ml Sodium Chloride (Ns Flush) 2 ml IV.FLUSH UNSCH PRN PRN Reason: FLUSH AFTER USING IV ACCESS Sodium Chloride (Ns Flush) 0 ml IV.FLUSH DAILY [facility] Last Admin: 06/18/18 08:03 Dose: 6 ml Sterile Water (Free Water) 100 ml G-TUBE Q8HR [facility] Last Admin: 06/18/18 06:25 Dose: 100 ml Terbutaline Sulfate (Brethine Inj) 1 mg SQ UNSCH PRN PRN Reason: For Extravasation Allergies Allergy/AdvReac Type Severity Reaction Status Date / Time No Known Allergies Allergy Verified 06/16/18 06:46 Home Medications Medication Instructions Recorded Confirmed Type No Known Home Medications 06/16/18 06/16/18 History Physical Exam Vital signs: Vital Signs 06/17/18 08:45 06/17/18 11:00 06/17/18 11:11 Temperature 98.7 F Pulse Rate 85 88 90 Respiratory Rate 21 16 16 Blood Pressure 98/55 L Pulse Oximetry 98 97 06/17/18 11:13 06/17/18 14:14 06/17/18 15:00 Temperature 99.4 F Pulse Rate 81 Respiratory Rate 16 16 16 Blood Pressure 94/54 L Pulse Oximetry 97 96 06/17/18 16:12 06/17/18 16:48 06/17/18 20:00 Temperature 99.6 F Pulse Rate 83 94 H Respiratory Rate 16 16 17 Blood Pressure 126/88 Pulse Oximetry 99 99 06/17/18 20:20 06/17/18 20:28 06/17/18 22:57 Temperature Pulse Rate 89 Respiratory Rate 17 16 16 Blood Pressure Pulse Oximetry 97 97 06/18/18 00:00 06/18/18 00:17 06/18/18 03:25 Temperature 98.5 F Pulse Rate 90 90 86 Respiratory Rate 17 16 16 Blood Pressure 100/70 Pulse Oximetry 99 98 98 06/18/18 04:00 06/18/18 07:00 06/18/18 07:58 Temperature 99.1 F 99 F Pulse Rate 88 84 85 Respiratory Rate 16 16 16 Blood Pressure 107/74 106/51 L Pulse Oximetry 98 97 99 Intake & Output 0906/18/18 06/18/18 18:59 06:59 18:59 Intake Total 1574.7 / 1574.7 1012 / 1012 Output Total 1230 / 1230 950 / 950 Balance 344.7 / 344.7 62 / 62 Weight 68 kg Intake: IV 1164.7 / 1164.7 200 / 200 Cleviprex Inj 25 mg In 50 ml @ 14.7 / 14.7 1 MG/HR 2 mls/hr IV.CONT TITRATE PRN Rx#:[id number] Versed Inj 50 mg In 50 ml @ 2 50 / 50 100 / 100 MG/HR 2 mls/hr IV.CONT TITRATE PRN Rx#:[id number] Magnesium Sulfate 1 gm/D5W 100 100 / 100 ml Premix 100 ML @ 100 mls/hr IV.SIG ONCE ONE Rx#:[id number] Magnesium Sulfate Inj 4 GM In 100 / 100 D5W Inj 100 ML @ 25 mls/hr IV. SIG ONCE ONE Rx#:[id number] MVI-12 Inj 10 ML Thiamine Inj 500 / 500 100 MG Folvite Inj 1 MG In NS Inj 500 ML @ 125 mls/hr IV.SIG Q24H LAURA Rx#:[id number] KCl 40 mEq Premix Inj 40 meq In 100 / 100 100 / 100 100 ml @ 50 mls/hr IV.SIG Q2H PRN Rx#:[id number] Oral 0 / 0 Tube Feeding 310 / 310 612 / 612 Water Bolus Amount 100 / 100 200 / 200 Output: Urine Amount (Catheter) 1230 / 1230 950 / 950 Indwelling Urethral Catheter 1230 / 1230 950 / 950 Other: # Bowel Movements 0 Narrative: Sedated supine on vent CVP appears nl Chest diminished anteriorly, CXR persistent CHF CV S1S2 RRR, HR 90's Ext: no edema. +tremor intermittent - Urinary Catheter Management Indwelling Urethral Catheter Cath placed during this visit: yes Reason for continuing: Hourly intake/output Insertion date: 06/16/18 Results 06/18/18 04:30 06/18/18 04:30 Cardiac Enzymes 06/16/18 06/17/18 Range/Units 09:40 05:15 AST 36 29 (15-37) U/L Coagulation 06/17/18 Range/Units 05:15 PT 10.9 (9.8-11.6) sec APTT 23.2 L (24.3-30.1) sec Lipids 06/16/18 06/16/18 Range/Units 09:40 09:40 Triglycerides Cancelled 97 Cholesterol Cancelled 128 HDL Cholesterol Cancelled 61.6 H Cholesterol/HDL Ratio Cancelled 2.07 CBC 06/16/18 06/17/18 06/18/18 Range/Units 09:40 05:15 04:30 WBC 16.5 H D 9.3 7.8 (4.0-11.0) th/mm3 RBC 4.29 L 3.70 L 3.52 L (4.50-5.90) mil/mm3 Hgb 14.1 12.1 L D 11.5 L (13.0-17.0) gm/dL Hct 41.9 36.3 L 34.6 L (39.0-51.0) % Plt Count 221 150 D 129 L (150-450) th/mm3 Neut # (Auto) 13.8 H 6.5 5.5 (1.8-7.7) th/mm3 Lymph # (Auto) 1.4 1.6 1.4 (1.0-4.8) th/mm3 [place] # (Auto) 1.2 H 0.7 0.7 (0.0-0.9) th/mm3 Eos # (Auto) 0.0 0.3 0.2 (0.0-0.4) th/mm3 Baso # (Auto) 0.1 0.1 0.0 (0.0-0.2) th/mm3 Comprehensive Metabolic Panel 06/16/18 06/17/18 06/17/18 Range/Units 09:40 05:15 21:40 Sodium 138 142 (136-145) meq/L Potassium 3.8 3.6 3.4 L (3.5-5.1) meq/L Chloride 104 108 H (98-107) meq/L Carbon Dioxide 23.8 25.0 (21.0-32.0) meq/L BUN 24 H 29 H (7-18) mg/dL Creatinine 1.67 H 1.67 H (0.60-1.30) mg/dL Calcium 8.3 L 7.7 L (8.5-10.1) mg/dL AST 36 29 (15-37) U/L ALT 21 22 (12-78) U/L Alkaline Phosphatase 86 62 (45-117) U/L Total Protein 7.6 6.3 L D (6.4-8.2) g/dL Albumin 3.1 L 2.5 L D (3.4-5.0) g/dL 06/18/18 Range/Units 04:30 Sodium 143 (136-145) meq/L Potassium 3.8 (3.5-5.1) meq/L Chloride 109 H (98-107) meq/L Carbon Dioxide 27.1 (21.0-32.0) meq/L BUN 28 H (7-18) mg/dL Creatinine 1.56 H (0.60-1.30) mg/dL Calcium 7.3 L* (8.5-10.1) mg/dL AST (15-37) U/L ALT (12-78) U/L Alkaline Phosphatase (45-117) U/L Total Protein 6.2 L (6.4-8.2) g/dL Albumin (3.4-5.0) g/dL Intake and Output 06/17/18 06/18/18 06/18/18 22:59 06:59 14:59 Intake Total 960 / 960 962 / 962 Output Total 1230 / 1230 950 / 950 Balance -270 / -270 Intake: IV 550 / 550 150 / 150 Versed Inj 50 mg In 50 ml @ 2 50 / 50 50 / 50 MG/HR 2 mls/hr IV.CONT TITRATE PRN Rx#:[id number] MVI-12 Inj 10 ML Thiamine Inj 500 / 500 100 MG Folvite Inj 1 MG In NS Inj 500 ML @ 125 mls/hr IV.SIG Q24H [facility]URA Rx#:[id number] KCl 40 mEq Premix Inj 40 meq In 100 / 100 100 ml @ 50 mls/hr IV.SIG Q2H PRN Rx#:[id number] Oral 0 / 0 Tube Feeding 310 / 310 612 / 612 Water Bolus Amount 100 / 100 200 / 200 Output: Urine Amount (Catheter) 1230 / 1230 950 / 950 Indwelling Urethral Catheter 1230 / 1230 950 / 950 Other: # Bowel Movements 0 Weight 68 kg - Imaging and Cardiology Imaging: Impressions Abdomen/Bladder Ultrasound 06/16/18 00:00 CONCLUSION: The kidneys are at the lower limits for normal in size. Otherwise, no abnormality is identified. There is no hydronephrosis. Chest X-Ray 06/16/18 00:00 CONCLUSION: 1. Cardiomegaly with pulmonary edema pattern. Chest X-Ray 06/16/18 10:19 CONCLUSION: 1. ETT in good position. 2. Left IJ central line with tip in the very proximal SVC. No pneumothorax. 3. Persistent pulmonary edema pattern. Chest X-Ray 06/18/18 06:00 CONCLUSION: No significant change mid and lower lung consolidation with small effusions on both sides. Assessment and Plan - Assessment (1) Anterior myocardial infarction Code(s): I21.09 - ST elevation (STEMI) myocardial infarction involving other coronary artery of anterior wall Status: Acute (2) Acute systolic CHF (congestive heart failure) Code(s): I50.21 - Acute systolic (congestive) heart failure Status: Acute (3) Tobacco abuse Code(s): Z72.0 - Tobacco use Status: Acute (4) Cardiogenic shock Code(s): R57.0 - Cardiogenic shock Status: Acute (5) 2-vessel coronary artery disease Code(s): I25.10 - Atherosclerotic heart disease of [place] coronary artery without angina pectoris Status: Acute (6) Occlusion of LAD (left anterior descending) artery Code(s): I24.0 - Acute coronary thrombosis not resulting in myocardial infarction Status: Acute - Plan Anterior SC probably 3-4 weeks ago - CPK is normal proving it is not acute LEF 15% - in shock on IV norepinephrine, prognosis very poor. BP likely to improve when sedation withdrawn but high risk of DT's
[2018-06-18] MEDS: Potassium Chloride 25 MEQ Effervescent Tablet PO SCH ×3 (08:53→18:07)
--- NOTE | 2018-06-18 09:39 | P.PNCC ---
Subjective Subjective Remarks/Hospital Course: This is a 67-year-old male. Actual name name is Ashvin Painter. Date of admission 06/16/2018. Past medical history includes sciatica. Patient is a former alcoholic but quit a few weeks ago prior to intubation. He has smoked for 50 years. Presents to [facility] today with chief complaint of chest pain. This is been present for the past week. Did not describe radiation of the neck the back and chest of the left arm prior to intubation. He was noted to have a low saturation on arrival of paramedics, however became combative due to claustrophobia on CPAP. N is placed on 100% nonrebreather, given sublingual nitrogen and furosemide Stimulator was called as patient had ST elevation in the anterior/lateral leads. Patient went to [facility] was noted to have mid to distal LAD 100%, diagonal 50%. 100 percent to left circumflex. 40% % RCA. Ejection fraction 15 -20%. Failed PCI to LAD. Patient was started on clevidipine drip due to hypertension.\\ I have asked the patient, patient was acidotic and tachypnea. Received 40 of IV furosemide in the [facility] and along with started on carvedilol 650 twice daily and lisinopril 10 mg twice daily. Due to the pulmonary edema, we are intubated the patient with 20 mg time and 50 mg of rocuronium. Central line is in place. Arterial has been placed SUBJECTIVE: 06/17: Afebrile. Diuresing with furosemide 40 mg IV twice daily. Please magnesium and potassium this a.m. Tube feeds currently at 20 cc an hour. On low-dose norepinephrine drip. Sedated with fentanyl and midazolam. 06/18 Patient is sedated with Fentanyl and Versed and intubated. Afebrile, on Levophed 4 mics. Objective Vital Signs / I&O: Vital Signs 06/17/18 11:00 06/17/18 11:11 06/17/18 11:13 Temperature 98.7 F Pulse Rate 88 90 Respiratory Rate 16 16 16 Blood Pressure 98/55 L Pulse Oximetry 97 06/17/18 14:14 06/17/18 15:00 06/17/18 16:12 Temperature 99.4 F Pulse Rate 81 83 Respiratory Rate 16 16 16 Blood Pressure 94/54 L Pulse Oximetry 97 96 06/17/18 16:48 06/17/18 20:00 06/17/18 20:20 Temperature 99.6 F Pulse Rate 94 H Respiratory Rate 16 17 17 Blood Pressure 126/88 Pulse Oximetry 99 99 97 06/17/18 20:28 06/17/18 22:57 06/18/18 00:00 Temperature 98.5 F Pulse Rate 89 90 Respiratory Rate 16 16 17 Blood Pressure 100/70 Pulse Oximetry 97 99 06/18/18 00:17 06/18/18 03:25 06/18/18 04:00 Temperature 99.1 F Pulse Rate 90 86 88 Respiratory Rate 16 16 16 Blood Pressure 107/74 Pulse Oximetry 98 98 98 06/18/18 07:00 06/18/18 07:58 Temperature 99 F Pulse Rate 84 85 Respiratory Rate 16 16 Blood Pressure 106/51 L Pulse Oximetry 97 99 Intake & Output 06/17/18 06/18/18 06/18/18 18:59 06:59 18:59 Intake Total 1574.7 / 1574.7 1012 / 1012 Output Total 1230 / 1230 950 / 950 Balance 344.7 / 344.7 62 / 62 Weight 68 kg Intake: IV 1164.7 / 1164.7 200 / 200 Cleviprex Inj 25 mg In 50 ml @ 14.7 / 14.7 1 MG/HR 2 mls/hr IV.CONT TITRATE PRN Rx#:[id number] Versed Inj 50 mg In 50 ml @ 2 50 / 50 100 / 100 MG/HR 2 mls/hr IV.CONT TITRATE PRN Rx#:[id number] Magnesium Sulfate 1 gm/D5W 100 100 / 100 ml Premix 100 ML @ 100 mls/hr IV.SIG ONCE ONE Rx#:[id number] Magnesium Sulfate Inj 4 GM In 100 / 100 D5W Inj 100 ML @ 25 mls/hr IV. SIG ONCE ONE Rx#:[id number] MVI-12 Inj 10 ML Thiamine Inj 500 / 500 100 MG Folvite Inj 1 MG In NS Inj 500 ML @ 125 mls/hr IV.SIG Q24H LAURA Rx#:[id number] KCl 40 mEq Premix Inj 40 meq In 100 / 100 100 / 100 100 ml @ 50 mls/hr IV.SIG Q2H PRN Rx#:[id number] Oral 0 / 0 Tube Feeding 310 / 310 612 / 612 Water Bolus Amount 100 / 100 200 / 200 Output: Urine Amount (Catheter) 1230 / 1230 950 / 950 Indwelling Urethral Catheter 1230 / 1230 950 / 950 Other: # Bowel Movements 0 Result Diagrams: 06/18/18 04:30 06/18/18 04:30 Other Results: Laboratory Results - last 12 hr 06/17/18 06/18/18 06/18/18 21:40 00:25 04:30 WBC 7.8 RBC 3.52 L Hgb 11.5 L Hct 34.6 L MCV 98.3 MCH 32.8 MCHC 33.4 RDW 14.3 Plt Count 129 L MPV 10.4 Neut % (Auto) 70.0 Lymph % (Auto) 17.5 [place] % (Auto) 9.5 H Eos % (Auto) 2.4 Baso % (Auto) 0.6 Neut # (Auto) 5.5 Lymph # (Auto) 1.4 [place] # (Auto) 0.7 Eos # (Auto) 0.2 Baso # (Auto) 0.0 WBC Differential . Differential Comment Auto diff final Puncture Site Patient Temperature O2 Saturation ABG pH ABG pCO2 ABG pO2 ABG HCO3 ABG O2 Content ABG Base Excess ABG Methemoglobin Hemoglobin Carboxyhemoglobin O2 Delivery Device Vent Setting Inspired O2 Critical Value Sodium Potassium 3.4 L Chloride Carbon Dioxide Anion Gap BUN Creatinine Estimated GFR POC Glucose 131 H Random Glucose Calcium Prot Corrected Calcium Phosphorus Magnesium 2.4 D Total Protein 06/18/18 06/18/18 04:30 05:40 WBC RBC Hgb Hct MCV MCH MCHC RDW Plt Count MPV Neut % (Auto) Lymph % (Auto) [place] % (Auto) Eos % (Auto) Baso % (Auto) Neut # (Auto) Lymph # (Auto) [place] # (Auto) Eos # (Auto) Baso # (Auto) WBC Differential Differential Comment Puncture Site Art line Patient Temperature 98.6 O2 Saturation 95 ABG pH 7.46 H ABG pCO2 37 L ABG pO2 94 ABG HCO3 26 ABG O2 Content 20.1 H ABG Base Excess 2.3 H ABG Methemoglobin 1.4 Hemoglobin 15.0 Carboxyhemoglobin 0.8 O2 Delivery Device Ventilator Vent Setting Ac16/650/7 peep Inspired O2 40 Critical Value No Sodium 143 Potassium 3.8 Chloride 109 H Carbon Dioxide 27.1 Anion Gap 7 BUN 28 H Creatinine 1.56 H Estimated GFR 44 L POC Glucose Random Glucose 141 H Calcium 7.3 L* Prot Corrected Calcium 7.8 L Phosphorus 2.1 L Magnesium 2.6 H Total Protein 6.2 L Imaging: Abdomen/Bladder Ultrasound 06/16/18 00:00 CONCLUSION: The kidneys are at the lower limits for normal in size. Otherwise, no abnormality is identified. There is no hydronephrosis. Chest X-Ray 06/18/18 06:00 CONCLUSION: No significant change mid and lower lung consolidation with small effusions on both sides. Objective Remarks: GENERAL: 67-year-old male currently resting in bed in no acute distress orotracheally intubated SKIN: Warm and dry. HEAD: Atraumatic. Normocephalic. EYES: Pupils equal and round. No scleral icterus. No injection or drainage. ENT: No nasal bleeding or discharge. Mucous membranes pink and moist. NECK: Trachea midline. No JVD. CARDIOVASCULAR: Regular rate and rhythm. S1, S2. No S4. No murmur RESPIRATORY: Coarse rhonchorous breath sounds bilateral lower lobes. Positive prolonged expiratory phase/wheeze. GASTROINTESTINAL: Abdomen soft, non-tender, nondistended. Hepatic and splenic margins not palpable. MUSCULOSKELETAL: Extremities without clubbing, cyanosis, or edema. No obvious deformities. NEUROLOGICAL: Arousable on the ventilator and opens eyes spontaneously. Squeezes hands bilateral Assessment and Plan - Assessment and Plan Plan: Neuro/Psych: History of EtOH Patient is currently on midazolam at 7 mg an hour/fentanyl drips at 50 mg an hour for sedation/analgesia while intubated Goal of RASS -2 Daily sedation vacation Acetaminophen 650 mg every 6 hours as needed fever CV: Anterior STEMI Acute systolic heart failure Essential hypertension Hyperlipidemia Coronary artery disease Wean off Levophed ( On Levo 4 mics) Monitor HR and BP keep MAP>65mmHg Followed by cardiology/Dr. Sadler Heart catheterization revealed ejection fraction 15-20%. Mid to distal LAD and a percent. Diagonal 50%. Left circumflex 100%. RCA 40%. Failed LAD PCI Currently on aspirin 81 mg daily Start Coreg and Magdiel-I once off Levophed On atorvastatin 10 mg daily for dyslipidemia.. Lipid profile reviewed. On furosemide 40 mg IV twice daily Resp: Acute respiratory failure secondary pleural effusions/pulmonary edema Tobaccoism On ACV RR 16, TV 650, PEEP:7, FIO2 40% Ventilator bundle Albuterol/ipratropium aerosols every 4 hours with albuterol aerosols every 2 hours as needed for dyspnea Spontaneous breathing trials when clinically indicated CXR today: No significant change mid and lower lung consolidation with small effusions on both sides Tobacco cessation education provided when appropriate GI: Hypoalbuminemia on tube feedings Jevity 1.5 goal 50 cc an hour Pantoprazole for GI prophylaxis Docusate sodium/senna 1 tablet twice daily for bowel regimen : MONA Monitor renal function, I/O's, electrolytes replacement per protocol Will need Phos replacement today Renal function slowly improving with Cr: 1.56 today from 1.67 On Free water 100ml Q8 On Lasix 40mg BID US kidney: No hydronephrosis Endo: Acute hyperglycemia Start sliding scale insulin Accu-Cheks to maintain glycemia/every 6 hours aspart Hemoglobin A1c is 6.0. TSH is 3.9 Heme: Normocytic anemia Monitor CBC daily. Follow trends. No indication for transfusion of blood products at this time ID: Monitor for signs and symptomatology infection MSK: Physical therapy evaluate and treat Access -Left IJ CVL placed 06/16 -Left radial arterial line placed 06/16 Prophylaxis -GI -pantoprazole -DVT -SCD/heparin subcu Palliative care is following 35 minutes critical care time
[2018-06-18] MEDS: Multivitamin Inj 10 ML, Thiamine Inj 100 MG, Folic Acid Inj 1 MG in Sodium Chlor 0.9% I... IV.SIG SCH (13:30)
[2018-06-18 14:47] LABS: ABG Base Excess 2.9 mmol/L (-2-2); ABG PCO2 39 mmHg (38-42); ABG PO2 106 mmHG (61-120)
--- NOTE | 2018-06-18 16:55 | P.PNPAL ---
Reason for Visit Reason for visit: a. To assist with evaluation and management of symptoms including: dyspnea, pain b. To assist medical decision maker(s) with: better understanding of current medical conditions; weighing benefits/burdens of medical treatment options; making medical treatment decisions. Subjective Subjective/Interval History: Pt seen today to follow up on comfort, goals. Has remained stable in ICU. On mech vent, tolerating CPAP trials today. Sedation has been held for this. Has been weaned off pressors. Tolerating TF. CBC stable, unremarkable, chemistry stable unremarkable. CXR =No significant change mid and lower lung consolidation with small effusions on both sides To my exam pt lethargic though arouses some vigorous touch and verbal. Opens eyes. Tracks examiner. Follows simple commands does remain lethargic. No apparent discomfort or distress. If patient is able to medically extubate today or tomorrow he will likely be able to participate more in his own goals in decision-making. Call to in [place], provided medical update. Reviewed recent diagnostics current clinical condition. Review of CPAP trials and possible extubation in the next day or so depending on tolerance. All questions answered to the best of my ability. will call the unit over the weekend for ongoing updates Advance Directives Health Care Surrogate: Copy in medical record Health Care Surrogate Name and Number: [facility] Objective Vital Signs: Vital Signs 06/17/18 20:00 06/17/18 20:20 06/17/18 20:28 Temperature 99.6 F Pulse Rate 94 H 89 Respiratory Rate 17 17 16 Blood Pressure 126/88 Pulse Oximetry 99 97 06/17/18 22:57 06/18/18 00:00 06/18/18 00:17 Temperature 98.5 F Pulse Rate 90 90 Respiratory Rate 16 17 16 Blood Pressure 100/70 Pulse Oximetry 97 99 98 06/18/18 03:25 06/18/18 04:00 06/18/18 07:00 Temperature 99.1 F 99 F Pulse Rate 86 88 84 Respiratory Rate 16 16 16 Blood Pressure 107/74 106/51 L Pulse Oximetry 98 98 97 06/18/18 07:58 06/18/18 10:35 06/18/18 11:00 Temperature 98.9 F Pulse Rate 85 99 H Respiratory Rate 16 19 22 Blood Pressure 137/67 Pulse Oximetry 99 98 96 09/28/18 11:27 06/18/18 13:52 06/18/18 15:00 Temperature 98.2 F Pulse Rate 95 H 111 H Respiratory Rate 18 25 H 17 Blood Pressure 149/89 H Pulse Oximetry 98 95 Intake & Output 06/17/18 06/18/18 06/18/18 18:59 06:59 18:59 Intake Total 1574.7 / 1574.7 1012 / 1012 270 / 270 Output Total 1230 / 1230 950 / 950 Balance 344.7 / 344.7 62 / 62 270 / 270 Weight 68 kg Intake: IV 1164.7 / 1164.7 200 / 200 270 / 270 Cleviprex Inj 25 mg In 50 ml @ 14.7 / 14.7 1 MG/HR 2 mls/hr IV.CONT TITRATE PRN Rx#:[id number] Versed Inj 50 mg In 50 ml @ 2 50 / 50 100 / 100 10 / 10 MG/HR 2 mls/hr IV.CONT TITRATE PRN Rx#:[id number] Levophed Inj 16 MG In NS Inj 10 / 10 234 ML @ 2 MCG/MIN 1.87 mls/hr IV.CONT TITRATE PRN Rx#: [id number] Magnesium Sulfate 1 gm/D5W 100 100 / 100 ml Premix 100 ML @ 100 mls/hr IV.SIG ONCE ONE Rx#:[id number] Magnesium Sulfate Inj 4 GM In 100 / 100 D5W Inj 100 ML @ 25 mls/hr IV. SIG ONCE ONE Rx#:[id number] MVI-12 Inj 10 ML Thiamine Inj 500 / 500 100 MG Folvite Inj 1 MG In NS Inj 500 ML @ 125 mls/hr IV.SIG Q24H LAURA Rx#:[id number] KCl 40 mEq Premix Inj 40 meq In 100 / 100 100 / 100 100 ml @ 50 mls/hr IV.SIG Q2H PRN Rx#:[id number] fentaNYL 10 mcg/mL Premix Drip 250 / 250 2,500 mcg In 250 ml @ 50 MCG/HR 5 mls/hr IV.SIG TITRATE PRN Rx #:[id number] Oral 0 / 0 Tube Feeding 310 / 310 612 / 612 Water Bolus Amount 100 / 100 200 / 200 Output: Urine Amount (Catheter) 1230 / 1230 950 / 950 Indwelling Urethral Catheter 1230 / 1230 950 / 950 Other: # Bowel Movements 0 Physical Exam: CONSTITUTIONAL/GENERAL: This is an adequately nourished patient, lethargic, in no apparent distress. TUBES/LINES/DRAINS:PIV UE, central line, ETT, OGT, soft restraints BUE SKIN: No jaundice, rashes, or lesions. No wounds seen anteriorly. Skin warm/ dry. CARDIOVASCULAR: Regular rate and rhythm without murmur. No JVD. Peripheral pulses symmetric. No peripheral edema peer RESPIRATORY/CHEST: Symmetric, unlabored respirations via ETT to mech vent. Clear. Breath sounds equal bilaterally. GASTROINTESTINAL: Abdomen soft, non-tender, nondistended. No hepato-splenomegaly , or palpable masses. No guarding. Bowel sounds present. GENITOURINARY: Without palpable bladder distension. catheter in place. MUSCULOSKELETAL: Extremities without clubbing, cyanosis, or edema. No joint tenderness or effusion noted. No calf tenderness. No mottling or clubbing. NEUROLOGICAL: Lethargic, arouses eyes open tracks examiner. Follows very simple commands moving all 4 extremities. PSYCHIATRIC: No obvious anxiety/depression ; lethargic Diagnostic Tests Laboratory: Laboratory Results - last 72 hr 06/16/18 06/16/18 06/16/18 06:50 06:50 06:50 WBC 8.3 RBC 4.37 L Hgb 14.3 POC Hgb (Calc) 14.6 Hct 44.2 POC Hct 43.0 MCV 101.1 H MCH 32.7 MCHC 32.4 RDW 14.3 Plt Count 209 MPV 10.6 Prelim Diff (Auto) Neut % (Auto) 56.8 Lymph % (Auto) 32.6 Kings % (Auto) 6.2 Eos % (Auto) 3.1 Baso % (Auto) 1.3 Neut # (Auto) 4.7 Lymph # (Auto) 2.7 Kings # (Auto) 0.5 Eos # (Auto) 0.3 Baso # (Auto) 0.1 WBC Differential . Seg Neuts % (Manual) Band Neuts % (Manual) Lymphocytes % (Manual) Monocytes % (Manual) Metamyelocytes % (Man) Promyelocytes % (Man) Abs Neuts (Manual) Differential Comment Auto diff final Platelet Estimate Platelet Morphology Ovalocytes PT 10.4 INR 1.0 APTT 24.1 L Puncture Site Patient Temperature O2 Saturation ABG pH ABG pCO2 ABG pO2 ABG HCO3 ABG O2 Content ABG Base Excess ABG Methemoglobin Hemoglobin Carboxyhemoglobin O2 Delivery Device Liter Flow Vent Setting Inspired O2 Critical Value POC Sodium 141 Sodium POC Potassium 4.6 Potassium POC Chloride 109 Chloride Carbon Dioxide Anion Gap POC BUN 26 H BUN Creatinine POC Creatinine 1.4 H Estimated GFR POC Glucose 232 H Random Glucose Hemoglobin A1c Lactic Acid Calcium 8.2 L Prot Corrected Calcium Phosphorus Magnesium 2.3 Total Bilirubin AST ALT Alkaline Phosphatase Total Creatine Kinase 138 CK-MB (CK-2) 2.4 Troponin I 0.47 H B-Natriuretic Peptide Total Protein Albumin Triglycerides Cholesterol LDL Cholesterol, Calc HDL Cholesterol Cholesterol/HDL Ratio Vitamin B12 TSH Urine Eosinophils Ur Random Creatinine Ur Random Sodium Nasal Screen MRSA (PCR) 06/16/18 06/16/18 06/16/18 06:50 07:12 09:40 WBC RBC Hgb POC Hgb (Calc) Hct POC Hct MCV MCH MCHC RDW Plt Count MPV Prelim Diff (Auto) Neut % (Auto) Lymph % (Auto) Kings % (Auto) Eos % (Auto) Baso % (Auto) Neut # (Auto) Lymph # (Auto) Kings # (Auto) Eos # (Auto) Baso # (Auto) WBC Differential Seg Neuts % (Manual) Band Neuts % (Manual) Lymphocytes % (Manual) Monocytes % (Manual) Metamyelocytes % (Man) Promyelocytes % (Man) Abs Neuts (Manual) Differential Comment Platelet Estimate Platelet Morphology Ovalocytes PT INR APTT Puncture Site Art line Patient Temperature 98.6 O2 Saturation 94 ABG pH 7.23 L* ABG pCO2 45 H ABG pO2 118 ABG HCO3 18 L ABG O2 Content 17.4 ABG Base Excess -8.0 L ABG Methemoglobin 1.4 Hemoglobin 13.0 Carboxyhemoglobin 1.2 O2 Delivery Device Nrb Liter Flow 15.00 Vent Setting Inspired O2 Critical Value Yes POC Sodium Sodium POC Potassium Potassium POC Chloride Chloride Carbon Dioxide Anion Gap POC BUN BUN Creatinine POC Creatinine Estimated GFR POC Glucose Random Glucose Hemoglobin A1c Lactic Acid Calcium Prot Corrected Calcium Phosphorus Magnesium Total Bilirubin AST ALT Alkaline Phosphatase Total Creatine Kinase CK-MB (CK-2) Troponin I B-Natriuretic Peptide 4327 H Total Protein Albumin Triglycerides Cancelled Cholesterol Cancelled LDL Cholesterol, Calc Cancelled HDL Cholesterol Cancelled Cholesterol/HDL Ratio Cancelled Vitamin B12 TSH Urine Eosinophils Ur Random Creatinine Ur Random Sodium Nasal Screen MRSA (PCR) 06/16/18 06/16/18 06/16/18 09:40 09:40 09:40 WBC RBC Hgb POC Hgb (Calc) Hct POC Hct MCV MCH MCHC RDW Plt Count MPV Prelim Diff (Auto) Neut % (Auto) Lymph % (Auto) Kings % (Auto) Eos % (Auto) Baso % (Auto) Neut # (Auto) Lymph # (Auto) Kings # (Auto) Eos # (Auto) Baso # (Auto) WBC Differential Seg Neuts % (Manual) Band Neuts % (Manual) Lymphocytes % (Manual) Monocytes % (Manual) Metamyelocytes % (Man) Promyelocytes % (Man) Abs Neuts (Manual) Differential Comment Platelet Estimate Platelet Morphology Ovalocytes PT INR APTT Puncture Site Patient Temperature O2 Saturation ABG pH ABG pCO2 ABG pO2 ABG HCO3 ABG O2 Content ABG Base Excess ABG Methemoglobin Hemoglobin Carboxyhemoglobin O2 Delivery Device Liter Flow Vent Setting Inspired O2 Critical Value POC Sodium Sodium POC Potassium Potassium POC Chloride Chloride Carbon Dioxide Anion Gap POC BUN BUN Creatinine POC Creatinine Estimated GFR POC Glucose Random Glucose Hemoglobin A1c 6.0 Lactic Acid Calcium Prot Corrected Calcium Phosphorus Magnesium Total Bilirubin AST ALT Alkaline Phosphatase Total Creatine Kinase CK-MB (CK-2) Troponin I B-Natriuretic Peptide Total Protein Albumin Triglycerides 97 Cholesterol 128 LDL Cholesterol, Calc 47 HDL Cholesterol 61.6 H Cholesterol/HDL Ratio 2.07 Vitamin B12 Cancelled 362 TSH Cancelled 3.290 Urine Eosinophils Ur Random Creatinine Ur Random Sodium Nasal Screen MRSA (PCR) 06/16/18 06/16/18 06/16/18 09:40 09:40 09:40 WBC 16.5 H D RBC 4.29 L Hgb 14.1 POC Hgb (Calc) Hct 41.9 POC Hct MCV 97.7 MCH 32.9 MCHC 33.7 RDW 13.9 Plt Count 221 MPV 10.5 Prelim Diff (Auto) Slide review pending Neut % (Auto) 83.5 H Lymph % (Auto) 8.7 L Kings % (Auto) 7.3 Eos % (Auto) 0.2 Baso % (Auto) 0.3 Neut # (Auto) 13.8 H Lymph # (Auto) 1.4 Kings # (Auto) 1.2 H Eos # (Auto) 0.0 Baso # (Auto) 0.1 WBC Differential Manual diff final Seg Neuts % (Manual) 84 H Band Neuts % (Manual) 1 Lymphocytes % (Manual) 5 L Monocytes % (Manual) 8 Metamyelocytes % (Man) 1 Promyelocytes % (Man) 1 H Abs Neuts (Manual) 14.4 H Differential Comment . Platelet Estimate Normal Platelet Morphology Clumped H Ovalocytes 1+ H PT INR APTT Puncture Site Patient Temperature O2 Saturation ABG pH ABG pCO2 ABG pO2 ABG HCO3 ABG O2 Content ABG Base Excess ABG Methemoglobin Hemoglobin Carboxyhemoglobin O2 Delivery Device Liter Flow Vent Setting Inspired O2 Critical Value POC Sodium Sodium 138 POC Potassium Potassium 3.8 POC Chloride Chloride 104 Carbon Dioxide 23.8 Anion Gap 10 POC BUN BUN 24 H Creatinine 1.67 H POC Creatinine Estimated GFR 36 L POC Glucose Random Glucose 192 H Hemoglobin A1c Lactic Acid 3.0 H Calcium 8.3 L Prot Corrected Calcium Phosphorus 4.4 Magnesium 2.1 Total Bilirubin 0.5 AST 36 ALT 21 Alkaline Phosphatase 86 Total Creatine Kinase CK-MB (CK-2) Troponin I B-Natriuretic Peptide Total Protein 7.6 Albumin 3.1 L Triglycerides Cholesterol LDL Cholesterol, Calc HDL Cholesterol Cholesterol/HDL Ratio Vitamin B12 TSH Urine Eosinophils Ur Random Creatinine Ur Random Sodium Nasal Screen MRSA (PCR) 06/16/18 06/16/18 06/16/18 10:10 12:10 15:00 WBC RBC Hgb POC Hgb (Calc) Hct POC Hct MCV MCH MCHC RDW Plt Count MPV Prelim Diff (Auto) Neut % (Auto) Lymph % (Auto) Kings % (Auto) Eos % (Auto) Baso % (Auto) Neut # (Auto) Lymph # (Auto) Kings # (Auto) Eos # (Auto) Baso # (Auto) WBC Differential Seg Neuts % (Manual) Band Neuts % (Manual) Lymphocytes % (Manual) Monocytes % (Manual) Metamyelocytes % (Man) Promyelocytes % (Man) Abs Neuts (Manual) Differential Comment Platelet Estimate Platelet Morphology Ovalocytes PT INR APTT Puncture Site Beth Campos Patient Temperature 98.6 98.6 O2 Saturation 97 96 ABG pH 7.23 L* 7.34 L ABG pCO2 53 H* 40 ABG pO2 359 H 129 H ABG HCO3 21 L 21 L ABG O2 Content 19.7 17.8 ABG Base Excess -4.9 L -3.9 L ABG Methemoglobin 1.4 1.6 Hemoglobin 13.8 13.1 Carboxyhemoglobin 0.5 0.8 O2 Delivery Device Ventilator Ventilator Liter Flow Vent Setting See comments See comments Inspired O2 100 60 Critical Value Yes No POC Sodium Sodium POC Potassium Potassium POC Chloride Chloride Carbon Dioxide Anion Gap POC BUN BUN Creatinine POC Creatinine Estimated GFR POC Glucose Random Glucose Hemoglobin A1c Lactic Acid Calcium Prot Corrected Calcium Phosphorus Magnesium Total Bilirubin AST ALT Alkaline Phosphatase Total Creatine Kinase CK-MB (CK-2) Troponin I B-Natriuretic Peptide Total Protein Albumin Triglycerides Cholesterol LDL Cholesterol, Calc HDL Cholesterol Cholesterol/HDL Ratio Vitamin B12 TSH Urine Eosinophils Ur Random Creatinine 39 Ur Random Sodium 93 Nasal Screen MRSA (PCR) 06/16/18 06/16/18 06/16/18 15:00 16:11 17:10 WBC RBC Hgb POC Hgb (Calc) Hct POC Hct MCV MCH MCHC RDW Plt Count MPV Prelim Diff (Auto) Neut % (Auto) Lymph % (Auto) Kings % (Auto) Eos % (Auto) Baso % (Auto) Neut # (Auto) Lymph # (Auto) Kings # (Auto) Eos # (Auto) Baso # (Auto) WBC Differential Seg Neuts % (Manual) Band Neuts % (Manual) Lymphocytes % (Manual) Monocytes % (Manual) Metamyelocytes % (Man) Promyelocytes % (Man) Abs Neuts (Manual) Differential Comment Platelet Estimate Platelet Morphology Ovalocytes PT INR APTT Puncture Site Patient Temperature O2 Saturation ABG pH ABG pCO2 ABG pO2 ABG HCO3 ABG O2 Content ABG Base Excess ABG Methemoglobin Hemoglobin Carboxyhemoglobin O2 Delivery Device Liter Flow Vent Setting Inspired O2 Critical Value POC Sodium Sodium POC Potassium Potassium POC Chloride Chloride Carbon Dioxide Anion Gap POC BUN BUN Creatinine POC Creatinine Estimated GFR POC Glucose 136 H Random Glucose Hemoglobin A1c Lactic Acid Calcium Prot Corrected Calcium Phosphorus Magnesium Total Bilirubin AST ALT Alkaline Phosphatase Total Creatine Kinase CK-MB (CK-2) Troponin I B-Natriuretic Peptide Total Protein Albumin Triglycerides Cholesterol LDL Cholesterol, Calc HDL Cholesterol Cholesterol/HDL Ratio Vitamin B12 TSH Urine Eosinophils None seen Ur Random Creatinine Ur Random Sodium Nasal Screen MRSA (PCR) Not detected 06/16/18 06/17/18 06/17/18 18:58 00:26 05:15 WBC 9.3 RBC 3.70 L Hgb 12.1 L D POC Hgb (Calc) Hct 36.3 L POC Hct MCV 98.0 MCH 32.7 MCHC 33.4 RDW 14.0 Plt Count 150 D MPV 10.4 Prelim Diff (Auto) Neut % (Auto) 70.4 H Lymph % (Auto) 17.6 Kings % (Auto) 8.1 H Eos % (Auto) 2.7 Baso % (Auto) 1.2 Neut # (Auto) 6.5 Lymph # (Auto) 1.6 Kings # (Auto) 0.7 Eos # (Auto) 0.3 Baso # (Auto) 0.1 WBC Differential . Seg Neuts % (Manual) Band Neuts % (Manual) Lymphocytes % (Manual) Monocytes % (Manual) Metamyelocytes % (Man) Promyelocytes % (Man) Abs Neuts (Manual) Differential Comment Auto diff final Platelet Estimate Platelet Morphology Ovalocytes PT INR APTT Puncture Site Patient Temperature O2 Saturation ABG pH ABG pCO2 ABG pO2 ABG HCO3 ABG O2 Content ABG Base Excess ABG Methemoglobin Hemoglobin Carboxyhemoglobin O2 Delivery Device Liter Flow Vent Setting Inspired O2 Critical Value POC Sodium Sodium POC Potassium Potassium POC Chloride Chloride Carbon Dioxide Anion Gap POC BUN BUN Creatinine POC Creatinine Estimated GFR POC Glucose 131 H 106 Random Glucose Hemoglobin A1c Lactic Acid Calcium Prot Corrected Calcium Phosphorus Magnesium Total Bilirubin AST ALT Alkaline Phosphatase Total Creatine Kinase CK-MB (CK-2) Troponin I B-Natriuretic Peptide Total Protein Albumin Triglycerides Cholesterol LDL Cholesterol, Calc HDL Cholesterol Cholesterol/HDL Ratio Vitamin B12 TSH Urine Eosinophils Ur Random Creatinine Ur Random Sodium Nasal Screen MRSA (PCR) 06/17/18 06/17/18 06/17/18 05:15 05:15 05:15 WBC RBC Hgb POC Hgb (Calc) Hct POC Hct MCV MCH MCHC RDW Plt Count MPV Prelim Diff (Auto) Neut % (Auto) Lymph % (Auto) Kings % (Auto) Eos % (Auto) Baso % (Auto) Neut # (Auto) Lymph # (Auto) Kings # (Auto) Eos # (Auto) Baso # (Auto) WBC Differential Seg Neuts % (Manual) Band Neuts % (Manual) Lymphocytes % (Manual) Monocytes % (Manual) Metamyelocytes % (Man) Promyelocytes % (Man) Abs Neuts (Manual) Differential Comment Platelet Estimate Platelet Morphology Ovalocytes PT 10.9 INR 1.1 APTT 23.2 L Puncture Site Patient Temperature O2 Saturation ABG pH ABG pCO2 ABG pO2 ABG HCO3 ABG O2 Content ABG Base Excess ABG Methemoglobin Hemoglobin Carboxyhemoglobin O2 Delivery Device Liter Flow Vent Setting Inspired O2 Critical Value POC Sodium Sodium 142 POC Potassium Potassium 3.6 POC Chloride Chloride 108 H Carbon Dioxide 25.0 Anion Gap 9 POC BUN BUN 29 H Creatinine 1.67 H POC Creatinine Estimated GFR 36 L POC Glucose Random Glucose 116 H Hemoglobin A1c Lactic Acid 0.9 Calcium 7.7 L Prot Corrected Calcium Phosphorus 2.8 D Magnesium 1.7 Total Bilirubin 0.5 AST 29 ALT 22 Alkaline Phosphatase 62 Total Creatine Kinase CK-MB (CK-2) Troponin I B-Natriuretic Peptide Total Protein 6.3 L D Albumin 2.5 L D Triglycerides Cholesterol LDL Cholesterol, Calc HDL Cholesterol Cholesterol/HDL Ratio Vitamin B12 TSH Urine Eosinophils Ur Random Creatinine Ur Random Sodium Nasal Screen MRSA (PCR) 06/17/18 06/17/18 06/17/18 05:22 08:37 12:03 WBC RBC Hgb POC Hgb (Calc) Hct POC Hct MCV MCH MCHC RDW Plt Count MPV Prelim Diff (Auto) Neut % (Auto) Lymph % (Auto) Kings % (Auto) Eos % (Auto) Baso % (Auto) Neut # (Auto) Lymph # (Auto) Kings # (Auto) Eos # (Auto) Baso # (Auto) WBC Differential Seg Neuts % (Manual) Band Neuts % (Manual) Lymphocytes % (Manual) Monocytes % (Manual) Metamyelocytes % (Man) Promyelocytes % (Man) Abs Neuts (Manual) Differential Comment Platelet Estimate Platelet Morphology Ovalocytes PT INR APTT Puncture Site Art line Patient Temperature 98.6 O2 Saturation 95 ABG pH 7.48 H ABG pCO2 34 L ABG pO2 94 ABG HCO3 25 ABG O2 Content 18.6 ABG Base Excess 1.9 ABG Methemoglobin 1.5 Hemoglobin 13.8 Carboxyhemoglobin 0.9 O2 Delivery Device Ventilator Liter Flow Vent Setting 20/525/peep8 Inspired O2 40 Critical Value No POC Sodium Sodium POC Potassium Potassium POC Chloride Chloride Carbon Dioxide Anion Gap POC BUN BUN Creatinine POC Creatinine Estimated GFR POC Glucose 123 H 149 H Random Glucose Hemoglobin A1c Lactic Acid Calcium Prot Corrected Calcium Phosphorus Magnesium Total Bilirubin AST ALT Alkaline Phosphatase Total Creatine Kinase CK-MB (CK-2) Troponin I B-Natriuretic Peptide Total Protein Albumin Triglycerides Cholesterol LDL Cholesterol, Calc HDL Cholesterol Cholesterol/HDL Ratio Vitamin B12 TSH Urine Eosinophils Ur Random Creatinine Ur Random Sodium Nasal Screen MRSA (PCR) 06/17/18 06/17/18 06/18/18 17:40 21:40 00:25 WBC RBC Hgb POC Hgb (Calc) Hct POC Hct MCV MCH MCHC RDW Plt Count MPV Prelim Diff (Auto) Neut % (Auto) Lymph % (Auto) Kings % (Auto) Eos % (Auto) Baso % (Auto) Neut # (Auto) Lymph # (Auto) Kings # (Auto) Eos # (Auto) Baso # (Auto) WBC Differential Seg Neuts % (Manual) Band Neuts % (Manual) Lymphocytes % (Manual) Monocytes % (Manual) Metamyelocytes % (Man) Promyelocytes % (Man) Abs Neuts (Manual) Differential Comment Platelet Estimate Platelet Morphology Ovalocytes PT INR APTT Puncture Site Patient Temperature O2 Saturation ABG pH ABG pCO2 ABG pO2 ABG HCO3 ABG O2 Content ABG Base Excess ABG Methemoglobin Hemoglobin Carboxyhemoglobin O2 Delivery Device Liter Flow Vent Setting Inspired O2 Critical Value POC Sodium Sodium POC Potassium Potassium 3.4 L POC Chloride Chloride Carbon Dioxide Anion Gap POC BUN BUN Creatinine POC Creatinine Estimated GFR POC Glucose 162 H 131 H Random Glucose Hemoglobin A1c Lactic Acid Calcium Prot Corrected Calcium Phosphorus Magnesium 2.4 D Total Bilirubin AST ALT Alkaline Phosphatase Total Creatine Kinase CK-MB (CK-2) Troponin I B-Natriuretic Peptide Total Protein Albumin Triglycerides Cholesterol LDL Cholesterol, Calc HDL Cholesterol Cholesterol/HDL Ratio Vitamin B12 TSH Urine Eosinophils Ur Random Creatinine Ur Random Sodium Nasal Screen MRSA (PCR) 06/18/18 06/18/18 06/18/18 04:30 04:30 05:40 WBC 7.8 RBC 3.52 L Hgb 11.5 L POC Hgb (Calc) Hct 34.6 L POC Hct MCV 98.3 MCH 32.8 MCHC 33.4 RDW 14.3 Plt Count 129 L MPV 10.4 Prelim Diff (Auto) Neut % (Auto) 70.0 Lymph % (Auto) 17.5 Kings % (Auto) 9.5 H Eos % (Auto) 2.4 Baso % (Auto) 0.6 Neut # (Auto) 5.5 Lymph # (Auto) 1.4 Kings # (Auto) 0.7 Eos # (Auto) 0.2 Baso # (Auto) 0.0 WBC Differential . Seg Neuts % (Manual) Band Neuts % (Manual) Lymphocytes % (Manual) Monocytes % (Manual) Metamyelocytes % (Man) Promyelocytes % (Man) Abs Neuts (Manual) Differential Comment Auto diff final Platelet Estimate Platelet Morphology Ovalocytes PT INR APTT Puncture Site Art line Patient Temperature 98.6 O2 Saturation 95 ABG pH 7.46 H ABG pCO2 37 L ABG pO2 94 ABG HCO3 26 ABG O2 Content 20.1 H ABG Base Excess 2.3 H ABG Methemoglobin 1.4 Hemoglobin 15.0 Carboxyhemoglobin 0.8 O2 Delivery Device Ventilator Liter Flow Vent Setting Ac16/650/7 peep Inspired O2 40 Critical Value No POC Sodium Sodium 143 POC Potassium Potassium 3.8 POC Chloride Chloride 109 H Carbon Dioxide 27.1 Anion Gap 7 POC BUN BUN 28 H Creatinine 1.56 H POC Creatinine Estimated GFR 44 L POC Glucose Random Glucose 141 H Hemoglobin A1c Lactic Acid Calcium 7.3 L* Prot Corrected Calcium 7.8 L Phosphorus 2.1 L Magnesium 2.6 H Total Bilirubin AST ALT Alkaline Phosphatase Total Creatine Kinase CK-MB (CK-2) Troponin I B-Natriuretic Peptide Total Protein 6.2 L Albumin Triglycerides Cholesterol LDL Cholesterol, Calc HDL Cholesterol Cholesterol/HDL Ratio Vitamin B12 TSH Urine Eosinophils Ur Random Creatinine Ur Random Sodium Nasal Screen MRSA (PCR) 06/18/18 06/18/18 11:48 14:35 WBC RBC Hgb POC Hgb (Calc) Hct POC Hct MCV MCH MCHC RDW Plt Count MPV Prelim Diff (Auto) Neut % (Auto) Lymph % (Auto) Kings % (Auto) Eos % (Auto) Baso % (Auto) Neut # (Auto) Lymph # (Auto) Kings # (Auto) Eos # (Auto) Baso # (Auto) WBC Differential Seg Neuts % (Manual) Band Neuts % (Manual) Lymphocytes % (Manual) Monocytes % (Manual) Metamyelocytes % (Man) Promyelocytes % (Man) Abs Neuts (Manual) Differential Comment Platelet Estimate Platelet Morphology Ovalocytes PT INR APTT Puncture Site [place] Patient Temperature 98.6 O2 Saturation 96 ABG pH 7.45 H ABG pCO2 39 ABG pO2 106 ABG HCO3 27 H ABG O2 Content 16.1 ABG Base Excess 2.9 H ABG Methemoglobin 1.7 Hemoglobin 11.9 L Carboxyhemoglobin 0.9 O2 Delivery Device Cpap 5/10 Liter Flow Vent Setting Inspired O2 40 Critical Value No POC Sodium Sodium POC Potassium Potassium POC Chloride Chloride Carbon Dioxide Anion Gap POC BUN BUN Creatinine POC Creatinine Estimated GFR POC Glucose 131 H Random Glucose Hemoglobin A1c Lactic Acid Calcium Prot Corrected Calcium Phosphorus Magnesium Total Bilirubin AST ALT Alkaline Phosphatase Total Creatine Kinase CK-MB (CK-2) Troponin I B-Natriuretic Peptide Total Protein Albumin Triglycerides Cholesterol LDL Cholesterol, Calc HDL Cholesterol Cholesterol/HDL Ratio Vitamin B12 TSH Urine Eosinophils Ur Random Creatinine Ur Random Sodium Nasal Screen MRSA (PCR) Result Diagrams: 06/18/18 04:30 06/18/18 04:30 Microbiology: Microbiology 06/16/18 21:00 Gram Stain - Final Sputum - Endotracheal Sputum Culture - Final Heavy growth normal respiratory audrey Imaging: Impressions Chest X-Ray 06/18/18 06:00 CONCLUSION: No significant change mid and lower lung consolidation with small effusions on both sides. Procedures: 06/16 intubation 06/16 cardiac catheterization Assessment and Plan - Disease Oriented Problem List (1) Sciatica (2) History of alcohol abuse (3) ST elevation (STEMI) myocardial infarction Pertinent Non-Medical Issues: Psychosocial:Prev lived at home alone. Spiritual:unk Legal:ACCURINT search has been requested 06/16/18 . If no family/NOK is able to be identified, may need to enlist outside decision maker such as [employer] to assist with decision making. Pt to exam is alert, appears partially to mostly oriented. Possible he may be medically extubated in the coming days and in this case he may be able to participate and make his own decisions, he also may be able to complete designation of healthcare surrogate. Today he is also requested I call a close friend named Martha he indicates he would want this person called before his brother and trust her to make medical decisions. He confirms a brother in [facility], [facility]. I have left with Martha. current Visit: Son Liz [phone] name is apparently Ashvin (Liliana WhitakerDari Madina, 48 via prior EMR records found other name Melvin Painter, 48; listed possible parent/contact as Kenya Madina, (may be ?) [phone]. There is mention of a possible brother in [place]. Ethical issues impacting care: no ethical issues identified Important Contacts: Brother Nick Painter, [place] [phone] , [facility] DO NOT GIVE TO PT: local friend Martha Adair--- [phone] 2 sisters? . Prognosis: This pt was admitted from home for NSTEMI. + LAD occlusion, unable to open per cardiac catheterization. Required emergent intubation. Currently stable, neurologically intact. Possible he can get through this and return to prior status with ongoing aggressive treatment. At risk for further complications/ setbacks during this acute phase. group home cardiac level of recovery not known at this time. Indicates previously in good overall health. Code Status: Full Code Plan: * Legal decision maker: Possible he may be medically extubated in the coming days and in this case he may be able to participate and make his own decisions. Able to write/designate HCS Brother Nick on 06/16/18 * Goals: aggressive per brother, cont available treatments. Pt has been alert and able to participate some via writing and nodding, indicates he wants to continue with treatment for his MA, medical conditions. * CODE STATUS: FULL CODE by default * SYMPTOMS: --dyspnea- emergently intubated, Currently breathing comfortably on mech vent , light sedation versed + fentanyl. Held today for CPAP trials, possible may be medically extubated in the coming days. --Pain-patient endorsed history of sciatica pain to right hip and back however not having pain there currently. endorsed pain to right eye. Exam is benign . Could have minor corneal abrasion, would recommend monitoring, could consider artificial tears drops, otherwise monitor for any further changes in physical exam to right eye. May require further eval by ophthalmology if discomfort persists. continue to evaluate. Other potential sources include Bedbound status, recent invasive procedures. * Palliative care will continue to follow during hospital course as condition evolves, to assist patient/decision-maker with understanding of medical conditions, weighing benefits/burdens of treatment options, for clarification of goals of treatment. Additionally will assist with any symptoms of palliative concern Attestation Attestation: To help prompt me to consider important information that might be impacting today's encounter and assessment, information from prior notes written by myself or my colleagues may have been "brought forward" into today's note. My signature on this note, however, is an attestation that I personally performed the exam, history, and/or decision-making noted today, and, unless otherwise indicated, the interactions with patient, family, and staff as well as the review of records all occurred today. I also attest that the listed assessment and stated plan reflect my best clinical judgment today based on the combination of historical information, prior notes, and today's exam/ interactions. When time spent is documented, it refers only to time spent today by the signer, or if indicated, combined time spent today by collaborating physician/nurse practitioner.
[2018-06-19] MEDS: Oral Hygiene Kit OROPHARYNG SCH ×4 (00:16→17:05)
[2018-06-19] MEDS: Insulin NovoLOG Aspart Correctional Sugar Inj SQ SCH ×2 (00:25→06:21)
[2018-06-19 05:15] LABS: Baso % (Auto) 0.6 % (0.0-2.0); Eos # (Auto) 0.3 th/mm3 (0.0-0.4); Eos % (Auto) 5.2 % (0.0-4.0); Hematocrit 32.5 % (39.0-51.0); Lymph # (Auto) 1.3 th/mm3 (1.0-4.8); Lymph % (Auto) 20.3 % (9.0-44.0); Mean Corpuscular Hemoglobin 33.2 pg (27.0-34.0); Mean Corpuscular Volume 97.8 fL (80.0-100.0); Mean Platelet Volume 10.5 fL (7.0-11.0); Mono # (Auto) 0.6 th/mm3 (0.0-0.9); Mono % (Auto) 9.5 % (0.0-8.0); Neut # (Auto) 4.2 th/mm3 (1.8-7.7); Neut % (Auto) 64.4 % (16.0-70.0); Platelet Count 110 th/mm3 (150-450); Red Blood Count 3.32 mil/mm3 (4.50-5.90); White Blood Count 6.6 th/mm3 (4.0-11.0)
[2018-06-19 05:33] LABS: Alanine Aminotransferase 16 U/L (12-78); Albumin 2.3 g/dL (3.4-5.0); Anion Gap 9 meq/L (5-15); Aspartate Aminotransferase 22 U/L (15-37); Blood Urea Nitrogen 26 mg/dL (7-18); Calcium 7.6 mg/dL (8.5-10.1); Carbon Dioxide 29.2 meq/L (21.0-32.0); Chloride 108 meq/L (98-107); Glomerular Filtration Rate 50 mL/min (>89); Glucose,Random 102 mg/dL (74-106); Magnesium 2.4 mg/dL (1.5-2.5); Phosphorus 3.6 mg/dL (2.5-4.9); Potassium 3.7 meq/L (3.5-5.1); Sodium 146 meq/L (136-145)
[2018-06-19 05:35] LABS: Alkaline Phosphatase 54 U/L (45-117)
[2018-06-19] MEDS: Chlorhexidine Gluconate 2% 1 Pack (2 Cloths) TOPICAL SCH (06:20)
[2018-06-19] MEDS: Chlorhexidine 0.12% Oral Kit 15 ML UDC OROPHARYNG SCH ×2 (08:03→21:51)
--- NOTE | 2018-06-19 08:26 | P.PNCC ---
Subjective Subjective Remarks/Hospital Course: This is a 67-year-old male. Actual name name is Ashvin Painter. Date of admission 06/16/2018. Past medical history includes sciatica. Patient is a former alcoholic but quit a few weeks ago prior to intubation. He has smoked for [address] to [facility] today with chief complaint of chest pain. This is been present for the past week. Did not describe radiation of the neck the back and chest of the left arm prior to intubation. He was noted to have a low saturation on arrival of paramedics, however became combative due to claustrophobia on CPAP. N is placed on 100% nonrebreather, given sublingual nitrogen and furosemide Stimulator was called as patient had ST elevation in the anterior/lateral leads. Patient went to [employer] was noted to have mid to distal LAD 100%, diagonal 50%. 100 percent to left circumflex. 40% % RCA. Ejection fraction 15 -20%. Failed PCI to LAD. Patient was started on clevidipine drip due to hypertension.\\ I have asked the patient, patient was acidotic and tachypnea. Received 40 of IV furosemide in the [employer] and along with started on carvedilol 650 twice daily and lisinopril 10 mg twice daily. Due to the pulmonary edema, we are intubated the patient with 20 mg time and 50 mg of rocuronium. Central line is in place. Arterial has been placed SUBJECTIVE: 06/17: Afebrile. Diuresing with furosemide 40 mg IV twice daily. Please magnesium and potassium this a.m. Tube feeds currently at 20 cc an hour. On low-dose norepinephrine drip. Sedated with fentanyl and midazolam. 06/18 Patient is sedated with Fentanyl and Versed and intubated. Afebrile, on Levophed 4 mics. 06/19 Patient was extubated yesterday awake and alert now on 3L oxygen, off all drips. Afebrile. Objective Vital Signs / I&O: Vital Signs 06/18/18 10:35 06/18/18 11:00 06/18/18 11:27 Temperature 98.9 F Pulse Rate 99 H 95 H Respiratory Rate 19 22 18 Blood Pressure 137/67 Pulse Oximetry 98 96 06/18/18 13:52 06/18/18 15:00 06/18/18 17:10 Temperature 98.2 F Pulse Rate 111 H 106 H Respiratory Rate 25 H 17 20 Blood Pressure 149/89 H Pulse Oximetry 98 95 06/18/18 19:00 06/18/18 19:51 06/18/18 23:00 Temperature 99.2 F 98.3 F Pulse Rate 105 H 104 H 89 Respiratory Rate 17 16 15 Blood Pressure 127/67 97/50 L Pulse Oximetry 93 L 96 93 L 06/19/18 01:32 06/19/18 03:00 06/19/18 04:01 Temperature 98.0 F Pulse Rate 83 83 78 Respiratory Rate 14 15 14 Blood Pressure 109/60 Pulse Oximetry 94 L Intake & Output 06/18/18 06/19/18 06/19/18 18:59 06:59 18:59 Intake Total 1081.2 / 1081.2 600 / 600 Output Total 1230 / 1230 1260 / 1260 Balance -148.8 / -148.8 -660 / -660 Weight 67.5 kg Intake: IV 781.2 / 781.2 Versed Inj 50 mg In 50 ml @ 2 10 / 10 MG/HR 2 mls/hr IV.CONT TITRATE PRN Rx#:[id number] Levophed Inj 16 MG In NS Inj 10 / 10 234 ML @ 2 MCG/MIN 1.87 mls/hr IV.CONT TITRATE PRN Rx#: [id number] MVI-12 Inj 10 ML Thiamine Inj 511.2 / 511.2 100 MG Folvite Inj 1 MG In NS Inj 500 ML @ 125 mls/hr IV.SIG Q24H LAURA Rx#:[id number] fentaNYL 10 mcg/mL Premix Drip 250 / 250 2,500 mcg In 250 ml @ 50 MCG/HR 5 mls/hr IV.SIG TITRATE PRN Rx #:[id number] Oral 600 / 600 Tube Feeding 100 / 100 Tube Irrigant 100 / 100 Water Bolus Amount 100 / 100 Output: Urine 1260 / 1260 Urine Amount (Catheter) 1230 / 1230 Indwelling Urethral Catheter 1230 / 1230 Result Diagrams: 06/19/18 04:34 06/19/18 04:34 Other Results: Laboratory Results - last 12 hr 06/19/18 06/19/18 06/19/18 00:18 04:34 04:34 WBC 6.6 RBC 3.32 L Hgb 11.0 L Hct 32.5 L MCV 97.8 MCH 33.2 MCHC 34.0 RDW 14.0 Plt Count 110 L MPV 10.5 Neut % (Auto) 64.4 Lymph % (Auto) 20.3 [place] % (Auto) 9.5 H Eos % (Auto) 5.2 H Baso % (Auto) 0.6 Neut # (Auto) 4.2 Lymph # (Auto) 1.3 [place] # (Auto) 0.6 Eos # (Auto) 0.3 Baso # (Auto) 0.0 WBC Differential . Differential Comment Auto diff final Sodium 146 H Potassium 3.7 Chloride 108 H Carbon Dioxide 29.2 Anion Gap 9 BUN 26 H Creatinine 1.40 H Estimated GFR 50 L POC Glucose 113 H Random Glucose 102 Calcium 7.6 L Phosphorus 3.6 D Magnesium 2.4 Total Bilirubin 0.5 AST 22 ALT 16 Alkaline Phosphatase 54 Total Protein 6.0 L Albumin 2.3 L Imaging: Abdomen/Bladder Ultrasound 06/16/18 00:00 CONCLUSION: The kidneys are at the lower limits for normal in size. Otherwise, no abnormality is identified. There is no hydronephrosis. Chest X-Ray 06/18/18 06:00 CONCLUSION: No significant change mid and lower lung consolidation with small effusions on both sides. Objective Remarks: GENERAL: 67-year-old male currently resting in bed in no acute distress SKIN: Warm and dry. HEAD: Atraumatic. Normocephalic. EYES: Pupils equal and round. No scleral icterus. No injection or drainage. ENT: No nasal bleeding or discharge. Mucous membranes pink and moist. NECK: Trachea midline. No JVD. CARDIOVASCULAR: Regular rate and rhythm. S1, S2. No S4. No murmur RESPIRATORY: B/L equal air entry GASTROINTESTINAL: Abdomen soft, non-tender, nondistended. Hepatic and splenic margins not palpable. MUSCULOSKELETAL: Extremities without clubbing, cyanosis, or edema. No obvious deformities. NEUROLOGICAL: Awake and alert. Assessment and Plan - Assessment and Plan Plan: Neuro/Psych: History of EtOH Awake, alert monitor neuro status Acetaminophen 650 mg every 6 hours as needed fever CV: Anterior STEMI Acute systolic heart failure Essential hypertension Hyperlipidemia Coronary artery disease Continue Lopressor 25mg BID, Lisinopril 10mg BID Monitor HR and BP keep MAP>65mmHg Followed by cardiology/Dr. Sadler. Heart catheterization revealed ejection fraction 15-20%. Mid to distal LAD and a percent. Diagonal 50%. Left circumflex 100%. RCA 40%. Failed LAD PCI Currently on aspirin 81 mg daily On atorvastatin 10 mg daily for dyslipidemia.. Lipid profile reviewed. On furosemide 40 mg IV twice daily Resp: Acute respiratory failure secondary pleural effusions/pulmonary edema Tobaccoism Continue with oxygen keep sats >92% Albuterol/ipratropium aerosols every 4 hours with albuterol aerosols every 2 hours as needed for dyspnea Incentive spirometry CXR 06/19: No significant change mid and lower lung consolidation with small effusions on both sides GI: Hypoalbuminemia On PO diet Pantoprazole for GI prophylaxis Docusate sodium/senna 1 tablet twice daily for bowel regimen : MONA Monitor renal function, I/O's, electrolytes replacement per protocol Renal function slowly improving with Cr 1.40 from:1.56 On Lasix 40mg BID US kidney: No hydronephrosis Endo: Acute hyperglycemia Start sliding scale insulin Accu-Cheks to maintain glycemia/every 6 hours aspart Hemoglobin A1c is 6.0. TSH is 3.9 Heme: Normocytic anemia Monitor CBC daily. Follow trends. No indication for transfusion of blood products at this time ID: Monitor for signs and symptomatology infection Start Zosyn empirically and panculture ( blood, sputum, urine) for new onset fever MSK: Physical therapy evaluate and treat Access -Left IJ CVL placed 06/16 -d/c Art line Prophylaxis -GI -pantoprazole -DVT -SCD/heparin subcu Palliative care is following Will sign off and transfer care to [facility] 2
[2018-06-19] MEDS: Pantoprazole Inj 40 MG Vial IV.PUSH SCH (09:50)
[2018-06-19] MEDS: Heparin - SQ 10,000 UNITS/ML Vial SQ SCH ×2 (09:50→22:00)
[2018-06-19] MEDS: Senna/Docusate Sodium 8.6/50 MG Tablet PO SCH ×2 (09:51→22:02)
[2018-06-19] MEDS: Metoprolol Tartrate 25 MG Tablet PO SCH ×2 (09:52→21:51)
[2018-06-19] MEDS: Lisinopril 10 MG Tablet PO SCH ×2 (09:52→21:50)
[2018-06-19] MEDS: Potassium Chloride 25 MEQ Effervescent Tablet PO SCH ×3 (09:52→18:05)
[2018-06-19] MEDS: Carboxymethylcellulose 0.5% Opth Drops 15 ML Bottle EACH EYE SCH ×2 (10:04→21:50)
[2018-06-19] MEDS: Piperacil/Tazo 4.5 GM Premix 4.5 GM/100 ML BAG IV.SIG SCH ×3 (12:49→23:44)
[2018-06-19 14:24] LABS: Bilirubin,Urine Negative (Negative); Clarity,Urine Cloudy (Clear); Color,Urine Yellow (Yellw/Straw); Glucose,Urine (UA) Negative (Negative); Leukocyte Esterase,Urine Negative (Negative); Mucus,Urine Few /lpf (Occasional); Nitrite,Urine Negative (Negative); Specific Gravity,Urine 1.013 (1.002-1.035); Squamous Epithelial Cell,Urine <1 /hpf (0-5)
[2018-06-20] MEDS: Chlorhexidine Gluconate 2% 1 Pack (2 Cloths) TOPICAL SCH (04:31)
[2018-06-20 05:20] LABS: Baso # (Auto) 0.1 th/mm3 (0.0-0.2); Baso % (Auto) 1.3 % (0.0-2.0); Eos # (Auto) 0.4 th/mm3 (0.0-0.4); Eos % (Auto) 6.6 % (0.0-4.0); Hematocrit 36.9 % (39.0-51.0); Hemoglobin 12.3 gm/dL (13.0-17.0); Lymph % (Auto) 16.9 % (9.0-44.0); Mean Corpuscular HGB Conc 33.3 % (32.0-36.0); Mean Corpuscular Volume 99.1 fL (80.0-100.0); Mean Platelet Volume 10.8 fL (7.0-11.0); Mono # (Auto) 0.8 th/mm3 (0.0-0.9); Mono % (Auto) 12.3 % (0.0-8.0); Neut # (Auto) 3.9 th/mm3 (1.8-7.7); Neut % (Auto) 62.9 % (16.0-70.0); Platelet Count 107 th/mm3 (150-450); Red Blood Count 3.73 mil/mm3 (4.50-5.90); Red Cell Distribution Width 14.1 % (11.6-17.2); White Blood Count 6.2 th/mm3 (4.0-11.0)
[2018-06-20 05:33] LABS: Albumin 2.5 g/dL (3.4-5.0); Anion Gap 12 meq/L (5-15); Aspartate Aminotransferase 27 U/L (15-37); Blood Urea Nitrogen 31 mg/dL (7-18); Calcium 8.2 mg/dL (8.5-10.1); Carbon Dioxide 26.7 meq/L (21.0-32.0); Chloride 102 meq/L (98-107); Glomerular Filtration Rate 34 mL/min (>89); Glucose,Random 98 mg/dL (74-106); Magnesium 2.5 mg/dL (1.5-2.5); Sodium 141 meq/L (136-145)
[2018-06-20 05:34] LABS: Alanine Aminotransferase 16 U/L (12-78); Phosphorus 4.1 mg/dL (2.5-4.9)
[2018-06-20 05:37] LABS: Alkaline Phosphatase 51 U/L (45-117); Total Protein 7.1 g/dL (6.4-8.2)
[2018-06-20] MEDS: Piperacil/Tazo 4.5 GM Premix 4.5 GM/100 ML BAG IV.SIG SCH ×3 (06:31→20:33)
[2018-06-20] MEDS: Oral Hygiene Kit OROPHARYNG SCH ×4 (07:19→17:58)
[2018-06-20] MEDS: Chlorhexidine 0.12% Oral Kit 15 ML UDC OROPHARYNG SCH ×2 (08:29→20:34)
--- NOTE | 2018-06-20 08:46 | P.PNIM ---
Subjective Interval history: 67-year-old male admitted with VT and pleural effusions. He has been in the ICU for 5 days but is currently extubated, sitting up and eating breakfast, verbal and appropriate. Physical Exam Vital signs: Vital Signs 06/19/18 09:23 06/19/18 09:25 06/19/18 11:00 Temperature 101.9 F H Pulse Rate 104 H 95 H Respiratory Rate 20 16 Blood Pressure 108/74 Pulse Oximetry 92 L 95 06/19/18 12:35 06/19/18 15:00 06/19/18 17:18 Temperature 98.6 F Pulse Rate 88 84 75 Respiratory Rate 20 16 20 Blood Pressure 96/60 L Pulse Oximetry 94 L 06/19/18 19:00 06/19/18 20:47 06/19/18 23:00 Temperature 97.9 F 98.6 F Pulse Rate 80 84 82 Respiratory Rate 18 20 18 Blood Pressure 100/65 93/60 L Pulse Oximetry 94 L 92 L 96 06/20/18 01:01 06/20/18 03:00 06/20/18 04:21 Temperature 98.7 F Pulse Rate 80 88 83 Respiratory Rate 20 20 20 Blood Pressure 88/49 L Pulse Oximetry 96 06/20/18 04:24 06/20/18 07:00 Temperature 98.1 F Pulse Rate 80 Respiratory Rate 18 Blood Pressure 81/51 L Pulse Oximetry 92 L 99 Intake & Output 06/19/18 06/20/18 06/20/18 18:59 06:59 18:59 Intake Total 800 / 800 450 / 450 100 / 100 Output Total 1350 / 1350 1200 / 1200 Balance -550 / -550 -750 / -750 100 / 100 Weight 67 kg Intake: IV 100 / 100 200 / 200 100 / 100 Zosyn 4.5 GM Premix 4.5 gm In 100 / 100 200 / 200 100 / 100 100 ml @ 200 mls/hr IV.SIG Q6H LAURA Rx#:[id number] Oral 700 / 700 250 / 250 Output: Urine Amount (Catheter) 1350 / 1350 1200 / 1200 Indwelling Urethral Catheter 1350 / 1350 1200 / 1200 Other: Date of Last Bowel Movement 06/17/18 06/17/18 06/17/18 # Bowel Movements 0 Narrative: GENERAL: AAOx3, no acute distress SKIN: Warm and dry. No rashes HEAD: Atruamtic, normocephalic. EYES: No scleral icterus. No injection or drainage. ENT: Moist mucous membranes, patent nares, no erythema of oropharynx. NECK: Supple, trachea midline. No JVD or lymphadenopathy. Normal thyroid. CARDIOVASCULAR: Regular rate and rhythm. No murmurs, gallops, or rubs. RESPIRATORY: Breath sounds clear equal bilaterally. No crackles or wheezes. No accessory muscle use. GASTROINTESTINAL: Abdomen soft, non-tender, nondistended, normal active bowel sounds MUSCULOSKELETAL: No cyanosis, or edema. NEURO: CN II-XII grossly intact, no focal deficits, no slurring of speech - Urinary Catheter Management Indwelling Urethral Catheter Cath placed during this visit: yes Reason for continuing: Hourly intake/output Insertion date: 06/16/18 Results - Labs CBC & Chem 7: 06/20/18 04:52 06/20/18 04:52 Laboratory Results - last 24 hr 06/19/18 06/20/18 06/20/18 13:51 04:52 04:52 WBC 6.2 RBC 3.73 L Hgb 12.3 L Hct 36.9 L MCV 99.1 MCH 33.0 MCHC 33.3 RDW 14.1 Plt Count 107 L MPV 10.8 Neut % (Auto) 62.9 Lymph % (Auto) 16.9 [place] % (Auto) 12.3 H Eos % (Auto) 6.6 H Baso % (Auto) 1.3 Neut # (Auto) 3.9 Lymph # (Auto) 1.0 [place] # (Auto) 0.8 Eos # (Auto) 0.4 Baso # (Auto) 0.1 WBC Differential . Differential Comment Auto diff final Sodium 141 Potassium 4.0 Chloride 102 Carbon Dioxide 26.7 Anion Gap 12 BUN 31 H Creatinine 1.96 H Estimated GFR 34 L Random Glucose 98 Calcium 8.2 L Phosphorus 4.1 Magnesium 2.5 Total Bilirubin 1.0 AST 27 ALT 16 Alkaline Phosphatase 51 Total Protein 7.1 D Albumin 2.5 L Urine Color Yellow Urine Clarity Cloudy H Urine pH 5.0 Ur Specific [place] 1.013 Urine Protein Negative Urine Glucose (UA) Negative Urine Ketones Negative Urine Occult Blood Large H Urine Nitrate Negative Urine Bilirubin Negative Urine Urobilinogen Less than 2 Ur Leukocyte Esterase Negative Urine RBC Urine WBC 1 Ur Squamous Epith Cells <1 Urine Mucus Few H Micro UA Comment Culture not ind Ur Microscopic Review Not Reportable Urine Culture Comments Culture not ind Assessment and Plan - Plan Anterior STEMI Acute systolic heart failure, heart catheterization revealed ejection fraction of 15-20% Diagonal 50%, left circumflex 100%, RCA 40%, failed LAD PCI Continue Lopressor 25 mg twice daily, lisinopril 10 mg twice daily, aspirin 81 mg daily Continue Lasix 40 mg IV twice daily Continue atorvastatin 10 mg daily for dyslipidemia Appreciate cardiology following Acute respiratory failure secondary pleural effusions/pulmonary edema Continue supplemental oxygen to keep sats greater than 92% Continue duo nebs as needed, incentive spirometry Chest x-ray on shows no significant change, small effusions and consolidation persist History of alcohol abuse Monitor per CIWA protocol Patient counseled to quit drinking Tobaccoism Patient counseled to quit tobacco use DVT Prophylaxis Heparin
[2018-06-20] MEDS: Potassium Chloride 25 MEQ Effervescent Tablet PO SCH ×3 (08:50→20:59)
[2018-06-20] MEDS: Pantoprazole Inj 40 MG Vial IV.PUSH SCH (08:51)
[2018-06-20] MEDS: Senna/Docusate Sodium 8.6/50 MG Tablet PO SCH ×2 (08:52→20:37)
[2018-06-20] MEDS: Heparin - SQ 10,000 UNITS/ML Vial SQ SCH ×2 (08:52→20:34)
[2018-06-20] MEDS: Metoprolol Tartrate 25 MG Tablet PO SCH ×2 (08:53→20:36)
[2018-06-20] MEDS: Lisinopril 10 MG Tablet PO SCH ×2 (08:53→20:38)
[2018-06-20] MEDS: Carboxymethylcellulose 0.5% Opth Drops 15 ML Bottle EACH EYE SCH ×2 (08:54→20:40)
[2018-06-21] MEDS: Oral Hygiene Kit OROPHARYNG SCH ×4 (01:25→15:28)
[2018-06-21] MEDS: Piperacil/Tazo 4.5 GM Premix 4.5 GM/100 ML BAG IV.SIG SCH ×6 (01:25→23:26)
[2018-06-21] MEDS: Chlorhexidine Gluconate 2% 1 Pack (2 Cloths) TOPICAL SCH (04:16)
[2018-06-21 04:55] LABS: Eos # (Auto) 0.5 th/mm3 (0.0-0.4); Eos % (Auto) 10.3 % (0.0-4.0); Hematocrit 39.2 % (39.0-51.0); Lymph # (Auto) 1.1 th/mm3 (1.0-4.8); Lymph % (Auto) 23.1 % (9.0-44.0); Mean Corpuscular HGB Conc 33.2 % (32.0-36.0); Mean Corpuscular Hemoglobin 32.7 pg (27.0-34.0); Mean Corpuscular Volume 98.3 fL (80.0-100.0); Mean Platelet Volume 10.5 fL (7.0-11.0); Mono # (Auto) 0.6 th/mm3 (0.0-0.9); Mono % (Auto) 11.7 % (0.0-8.0); Neut # (Auto) 2.6 th/mm3 (1.8-7.7); Neut % (Auto) 53.9 % (16.0-70.0); Platelet Count 145 th/mm3 (150-450); Red Blood Count 3.99 mil/mm3 (4.50-5.90); Red Cell Distribution Width 13.9 % (11.6-17.2); White Blood Count 4.8 th/mm3 (4.0-11.0)
[2018-06-21 05:16] LABS: Albumin 2.8 g/dL (3.4-5.0); Anion Gap 13 meq/L (5-15); Aspartate Aminotransferase 32 U/L (15-37); Blood Urea Nitrogen 36 mg/dL (7-18); Calcium 8.8 mg/dL (8.5-10.1); Carbon Dioxide 28.2 meq/L (21.0-32.0); Chloride 100 meq/L (98-107); Glomerular Filtration Rate 32 mL/min (>89); Glucose,Random 97 mg/dL (74-106); Magnesium 2.5 mg/dL (1.5-2.5); Sodium 141 meq/L (136-145)
[2018-06-21 05:17] LABS: Alanine Aminotransferase 21 U/L (12-78); Phosphorus 4.5 mg/dL (2.5-4.9)
[2018-06-21 05:20] LABS: Alkaline Phosphatase 53 U/L (45-117); Total Protein 7.9 g/dL (6.4-8.2)
[2018-06-21] MEDS: Chlorhexidine 0.12% Oral Kit 15 ML UDC OROPHARYNG SCH ×2 (07:21→22:02)
[2018-06-21] MEDS: Lisinopril 10 MG Tablet PO SCH ×2 (08:25→22:03)
[2018-06-21] MEDS: Potassium Chloride 25 MEQ Effervescent Tablet PO SCH (08:25)
[2018-06-21] MEDS: Senna/Docusate Sodium 8.6/50 MG Tablet PO SCH ×2 (08:25→22:03)
[2018-06-21] MEDS: Metoprolol Tartrate 25 MG Tablet PO SCH ×2 (08:25→22:02)
[2018-06-21] MEDS: Heparin - SQ 10,000 UNITS/ML Vial SQ SCH ×2 (08:26→21:28)
[2018-06-21] MEDS: Pantoprazole Inj 40 MG Vial IV.PUSH SCH (08:26)
[2018-06-21] MEDS: Carboxymethylcellulose 0.5% Opth Drops 15 ML Bottle EACH EYE SCH ×2 (08:27→22:03)
--- NOTE | 2018-06-21 09:06 | P.PNCA ---
Subjective Interval history: C/o some difficulty with his mouth and with swallowing Medications and Allergies Active Medications: Active Medications Acetaminophen (Tylenol Liq) 650 mg PO Q6H PRN PRN Reason: FEVER Last Admin: 06/19/18 11:36 Dose: 650 mg Al Hydroxide/Mg Hydroxide (Milk Of Magnesia Liq) 30 ml PO Q12H PRN PRN Reason: Mild Constipation Albuterol (Albuterol Neb (Prn)) 2.5 mg NEB Q2HR NEB PRN PRN Reason: SHORTNESS OF BREATH/WHEEZING Artificial Tears (Refresh Tears 0.5% Opth Drops) 1 drop EACH EYE BID [facility] Last Admin: 06/21/18 08:27 Dose: 1 drop Aspirin (Aspirin Chew) 81 mg PO DAILY [facility] Last Admin: 06/21/18 08:25 Dose: 81 mg Atorvastatin Calcium (Lipitor) 10 mg PO HS [facility] Last Admin: 06/20/18 20:35 Dose: 10 mg Bisacodyl (Dulcolax Supp) 10 mg RECTAL DAILY PRN PRN Reason: SEVERE CONSITIPATION Chlorhexidine Gluconate (Chlorhexidine 2% Cloth) 3 pack TOPICAL DAILY@0400 [facility] Stop: 06/22/18 03:59 Last Admin: 06/21/18 04:16 Dose: Not Given Chlorhexidine Gluconate (Chlorhexidine 2% Cloth) 3 pack TOPICAL DAILY@0400 PRN PRN Reason: Extra cloth needed Stop: 06/22/18 03:59 Chlorhexidine Gluconate (Peridex 0.12% Oral Kit) 15 ml OROPHARYNG BID@0800, 2000 [facility] Last Admin: 06/21/18 07:21 Dose: Not Given Dextrose (D50w Vial) 50 ml IV.PUSH UNSCH PRN PRN Reason: PER HYPOGLYCEMIA PROTOCOL Glucagon (Glucagon Inj) 1 mg OTHER UNSCH PRN PRN Reason: for Hypoglycemia Protocol Heparin Sodium (Porcine) (Heparin Inj) 5,000 units SQ Q12HR [facility] Last Admin: 06/21/18 08:26 Dose: 5,000 units Magnesium Sulfate 4 gm/ Sodium (Chloride) 100 mls @ 50 mls/hr IV.SIG UNSCH PRN PRN Reason: For Magnesium 0.9 - 1.1 mg/dL Potassium Chloride (Kcl 40 Meq Premix Inj) 40 meq in 100 mls @ 50 mls/hr IV.SIG Q2H PRN PRN Reason: For Potassium 2.8 - 3.2 mEq/L Last Infusion: 06/18/18 01:00 Dose: Infused Potassium Chloride (Kcl 20 Meq Premix Inj) 20 meq in 100 mls @ 50 mls/hr IV.SIG Q2H PRN PRN Reason: For Potassium 3.3 - 3.5 mEq/L Potassium Chloride (Kcl 40 Meq Premix Inj) 40 meq in 100 mls @ 25 mls/hr IV.SIG UNSCH PRN PRN Reason: For Potassium 3.3 - 3.5 mEq/L Potassium Chloride (Kcl 20 Meq Premix Inj) 20 meq in 100 mls @ 50 mls/hr IV.SIG Q2H PRN PRN Reason: For Potassium 2.8 - 3.2 mEq/L Potassium Phosphate 30 mmol/ (Sodium Chloride) 260 mls @ 42 mls/hr IV.SIG UNSCH PRN PRN Reason: SEE LABEL COMMENTS Sodium Phosphate 30 mmol/ (Sodium Chloride) 260 mls @ 42 mls/hr IV.SIG UNSCH PRN PRN Reason: For Phosphorus < 2.5 mg/dL Magnesium Sulfate 2 gm/ Sodium (Chloride) 100 mls @ 50 mls/hr IV.SIG UNSCH PRN PRN Reason: For Magnesium 1.2 - 1.6 mg/dL Piperacillin/Tazobactam/Dextrose (Zosyn 4.5 Gm Premix) 4.5 gm in 100 mls @ 200 mls/hr IV.SIG Q6H [facility] Last Admin: 06/21/18 05:38 Dose: Not Given Lactulose (Lactulose Liq) 30 ml PO DAILY PRN PRN Reason: SEVERE CONSITIPATION Lisinopril (Prinivil) 5 mg PO BID [facility] Last Admin: 06/21/18 08:25 Dose: 5 mg Magnesium Oxide (Mag-Ox) 800 mg PO UNSCH PRN PRN Reason: For Magnesium 1.2 - 1.6 mg/dL Metoprolol Tartrate (Lopressor) 12.5 mg PO BID [facility] Last Admin: 06/21/18 08:25 Dose: 12.5 mg Miscellaneous (Pill Splitter) 1 each OTHER PRN [facility] Miscellaneous Medication () 1 each OROPHARYNG 0000,0400,1200,1600 [facility] Last Admin: 06/21/18 04:16 Dose: Not Given Pantoprazole Sodium (Protonix Inj) 40 mg IV.PUSH DAILY [facility] Last Admin: 06/21/18 08:26 Dose: 40 mg Potassium Bicarb/Potassium Chloride (K-Lyte Cl Eff) 50 meq PO UNSCH PRN PRN Reason: For Potassium 3.3 - 3.5 mEq/L Potassium Bicarb/Potassium Chloride (K-Lyte Cl Eff) 25 meq PO DAILY [facility] Potassium Phosphate (K-Phos Original) 2,000 mg PO UNSCH PRN PRN Reason: SEE LABEL COMMENTS Potassium Phosphate (K-Phos Original) 2,000 mg PO Q4H PRN PRN Reason: Phosphorus Less Than 2.5 mg/dL Last Admin: 06/18/18 08:53 Dose: 2,000 mg Senna/Docusate Sodium (Adia-Colace) 1 tab PO BID [facility] Last Admin: 06/21/18 08:25 Dose: 1 tab Sennosides (Senokot) 17.2 mg PO Q12H PRN PRN Reason: Moderate Constipation Sodium Chloride (Ns Flush) 2 ml IV.FLUSH BID [facility] Last Admin: 06/21/18 08:27 Dose: 2 ml Sodium Chloride (Ns Flush) 2 ml IV.FLUSH UNSCH PRN PRN Reason: FLUSH AFTER USING IV ACCESS Sodium Chloride (Ns Flush) 0 ml IV.FLUSH DAILY [facility] Last Admin: 06/21/18 08:27 Dose: 2 ml Sterile Water (Free Water) 100 ml G-TUBE Q8HR [facility] Last Admin: 06/21/18 05:38 Dose: Not Given Terbutaline Sulfate (Brethine Inj) 1 mg SQ UNSCH PRN PRN Reason: For Extravasation Torsemide (Demadex) 20 mg PO DAILY [facility] Allergies Allergy/AdvReac Type Severity Reaction Status Date / Time No Known Allergies Allergy Verified 06/16/18 06:46 Home Medications Medication Instructions Recorded Confirmed Type No Known Home Medications 06/16/18 06/16/18 History Physical Exam Vital signs: Vital Signs 06/20/18 09:29 06/20/18 11:00 06/20/18 11:31 Temperature 98.7 F Pulse Rate 88 92 H 90 Respiratory Rate 18 17 16 Blood Pressure 106/63 Pulse Oximetry 96 95 06/20/18 15:00 06/20/18 19:00 06/20/18 20:00 Temperature 98.4 F 98.3 F Pulse Rate 86 92 H 96 H Respiratory Rate 16 19 Blood Pressure 99/64 L 122/78 Pulse Oximetry 92 L 99 06/20/18 21:00 06/20/18 22:00 06/20/18 23:00 Temperature 98.1 F Pulse Rate 90 80 83 Respiratory Rate 18 Blood Pressure 97/61 L Pulse Oximetry 99 06/21/18 03:00 06/21/18 04:00 06/21/18 05:00 Temperature 98 F Pulse Rate 86 84 84 Respiratory Rate 18 Blood Pressure 95/51 L Pulse Oximetry 97 06/21/18 06:00 Temperature Pulse Rate 82 Respiratory Rate Blood Pressure Pulse Oximetry Intake & Output 06/20/18 06/21/18 06/21/18 18:59 06:59 18:59 Intake Total 680 / 680 440 / 440 Output Total 600 / 600 825 / 825 Balance 80 / 80 -385 / -385 Weight 67 kg Intake: IV 200 / 200 200 / 200 Zosyn 4.5 GM Premix 4.5 gm In 200 / 200 200 / 200 100 ml @ 200 mls/hr IV.SIG Q6H LAURA Rx#:[id number] Oral 480 / 480 240 / 240 Output: Urine 600 / 600 825 / 825 Other: Date of Last Bowel Movement 06/17/18 Narrative: Alert, NAD, calm Neck: no JVD Chest: diminished BS CV [id number] Abd soft Ext no edema - Urinary Catheter Management Indwelling Urethral Catheter Cath placed during this visit: yes, but has since been removed by the nurse Reason for continuing: Decision to DC catheter Insertion date: 06/16/18 Removal date: 06/20/18 Removal time: 09:30 Results 06/21/18 03:33 06/21/18 03:33 Cardiac Enzymes 06/20/18 06/21/18 Range/Units 04:52 03:33 AST 27 32 (15-37) U/L CBC 06/20/18 06/21/18 Range/Units 04:52 03:33 WBC 6.2 4.8 (4.0-11.0) th/mm3 RBC 3.73 L 3.99 L (4.50-5.90) mil/mm3 Hgb 12.3 L 13.0 (13.0-17.0) gm/dL Hct 36.9 L 39.2 (39.0-51.0) % Plt Count 107 L 145 L D (150-450) th/mm3 Neut # (Auto) 3.9 2.6 (1.8-7.7) th/mm3 Lymph # (Auto) 1.0 1.1 (1.0-4.8) th/mm3 [place] # (Auto) 0.8 0.6 (0.0-0.9) th/mm3 Eos # (Auto) 0.4 0.5 H (0.0-0.4) th/mm3 Baso # (Auto) 0.1 0.0 (0.0-0.2) th/mm3 Comprehensive Metabolic Panel 06/20/18 06/21/18 Range/Units 04:52 03:33 Sodium 141 141 (136-145) meq/L Potassium 4.0 4.0 (3.5-5.1) meq/L Chloride 102 100 (98-107) meq/L Carbon Dioxide 26.7 28.2 (21.0-32.0) meq/L BUN 31 H 36 H (7-18) mg/dL Creatinine 1.96 H 2.08 H (0.60-1.30) mg/dL Calcium 8.2 L 8.8 (8.5-10.1) mg/dL AST 27 32 (15-37) U/L ALT 16 21 (12-78) U/L Alkaline Phosphatase 51 53 (45-117) U/L Total Protein 7.1 D 7.9 D (6.4-8.2) g/dL Albumin 2.5 L 2.8 L (3.4-5.0) g/dL Intake and Output 06/20/18 06/21/18 06/21/18 22:59 06:59 14:59 Intake Total 580 / 580 340 / 340 Output Total 600 / 600 825 / 825 Balance -20 / -20 -485 / -485 Intake: IV 100 / 100 100 / 100 Zosyn 4.5 GM Premix 4.5 gm In 100 / 100 100 / 100 100 ml @ 200 mls/hr IV.SIG Q6H [facility]URA Rx#:[id number] Oral 480 / 480 240 / 240 Output: Urine 600 / 600 825 / 825 Other: Weight 67 kg Assessment and Plan - Assessment (1) Anterior myocardial infarction Code(s): I21.09 - Status: Acute (2) Acute systolic CHF (congestive heart failure) Code(s): I50.21 - Status: Acute (3) Tobacco abuse Code(s): Z72.0 - Status: Acute (4) Cardiogenic shock Code(s): R57.0 - Status: Acute (5) 2-vessel coronary artery disease Code(s): I25.10 - Status: Acute (6) Occlusion of LAD (left anterior descending) artery Code(s): I24.0 - Status: Acute - Plan Condition has improved. BUN/creat are up - change diuretic to PO
--- NOTE | 2018-06-21 11:58 | P.PNIM ---
Subjective Interval history: Patient states he was able to get up and walk to his bathroom which is approximately 20 feet away and did not experience overt shortness of breath off of oxygen. He is tolerating meals well. Physical Exam Vital signs: Vital Signs 06/20/18 15:00 06/20/18 19:00 06/20/18 20:00 Temperature 98.4 F 98.3 F Pulse Rate 86 92 H 96 H Respiratory Rate 16 19 Blood Pressure 99/64 L 122/78 Pulse Oximetry 92 L 99 06/20/18 21:00 06/20/18 22:00 06/20/18 23:00 Temperature 98.1 F Pulse Rate 90 80 83 Respiratory Rate 18 Blood Pressure 97/61 L Pulse Oximetry 99 06/21/18 03:00 06/21/18 04:00 06/21/18 05:00 Temperature 98 F Pulse Rate 86 84 84 Respiratory Rate 18 Blood Pressure 95/51 L Pulse Oximetry 97 06/21/18 06:00 06/21/18 07:00 06/21/18 08:00 Temperature 98.2 F Pulse Rate 82 80 94 H Respiratory Rate 18 Blood Pressure 141/77 H Pulse Oximetry 95 06/21/18 09:00 06/21/18 09:27 06/21/18 10:50 Temperature Pulse Rate 78 81 78 Respiratory Rate Blood Pressure Pulse Oximetry Intake & Output 06/20/18 06/21/18 06/21/18 18:59 06:59 18:59 Intake Total 680 / 680 440 / 440 Output Total 600 / 600 825 / 825 Balance 80 / 80 -385 / -385 Weight 67 kg Intake: IV 200 / 200 200 / 200 Zosyn 4.5 GM Premix 4.5 gm In 200 / 200 200 / 200 100 ml @ 200 mls/hr IV.SIG Q6H [facility] Rx#:[id number] Oral 480 / 480 240 / 240 Output: Urine 600 / 600 825 / 825 Other: Date of Last Bowel Movement 06/17/18 Narrative: GENERAL: AAOx3, no acute distress, thin SKIN: Warm and dry. No rashes HEAD: Atruamtic, normocephalic. EYES: No scleral icterus. No injection or drainage. ENT: Moist mucous membranes, patent nares, no erythema of oropharynx. NECK: Supple, trachea midline. No JVD or lymphadenopathy. Normal thyroid. CARDIOVASCULAR: Regular rate and rhythm. No murmurs, gallops, or rubs. RESPIRATORY: Mostly clear, scattered congestion, history of smoking. No accessory muscle use. GASTROINTESTINAL: Abdomen soft, non-tender, nondistended, normal active bowel sounds MUSCULOSKELETAL: No cyanosis, or edema. NEURO: CN II-XII grossly intact, no focal deficits, no slurring of speech - Urinary Catheter Management Indwelling Urethral Catheter Cath placed during this visit: yes, but has since been removed by the nurse Reason for continuing: Decision to DC catheter Insertion date: 06/16/18 Removal date: 06/20/18 Removal time: : Results - Labs CBC & Chem 7: 06/21/18 03:33 06/21/18 03:33 Laboratory Results - last 24 hr 06/21/18 06/21/18 03:33 03:33 WBC 4.8 RBC 3.99 L Hgb 13.0 Hct 39.2 MCV 98.3 MCH 32.7 MCHC 33.2 RDW 13.9 Plt Count 145 L D MPV 10.5 Neut % (Auto) 53.9 Lymph % (Auto) 23.1 [place] % (Auto) 11.7 H Eos % (Auto) 10.3 H Baso % (Auto) 1.0 Neut # (Auto) 2.6 Lymph # (Auto) 1.1 [place] # (Auto) 0.6 Eos # (Auto) 0.5 H Baso # (Auto) 0.0 WBC Differential . Differential Comment Auto diff final Sodium 141 Potassium 4.0 Chloride 100 Carbon Dioxide 28.2 Anion Gap 13 BUN 36 H Creatinine 2.08 H Estimated GFR 32 L Random Glucose 97 Calcium 8.8 Phosphorus 4.5 Magnesium 2.5 Total Bilirubin 0.6 AST 32 ALT 21 Alkaline Phosphatase 53 Total Protein 7.9 D Albumin 2.8 L Microbiology 06/19/18 13:20 Blood - Peripheral Aerobic Blood Culture - Preliminary No growth in 2 days 06/19/18 13:20 Blood - Peripheral Anaerobic Blood Culture - Preliminary No growth in 2 days 06/19/18 13:25 Blood - Peripheral Aerobic Blood Culture - Preliminary No growth in 2 days 06/19/18 13:25 Blood - Peripheral Anaerobic Blood Culture - Preliminary No growth in 2 days 06/19/18 13:55 Sputum - Expectorated Sputum Gram Stain - Final 06/19/18 13:55 Sputum - Expectorated Sputum Sputum Culture - Preliminary gram negative rods Assessment and Plan - Plan Anterior STEMI Acute systolic heart failure, heart catheterization revealed ejection fraction of 15-20% Diagonal 50%, left circumflex 100%, RCA 40%, failed LAD PCI Continue Lopressor 25 mg twice daily, lisinopril 10 mg twice daily, aspirin 81 mg daily Continue Lasix 40 mg IV twice daily Continue atorvastatin 10 mg daily for dyslipidemia Plan today is to work with physical therapy to see how he performs with walking , how far he can walk Appreciate cardiology following Acute respiratory failure secondary pleural effusions/pulmonary edema Continue supplemental oxygen to keep sats greater than 92%, sitting comfortably off of oxygen currently Continue duo nebs as needed, incentive spirometry Chest x-ray on 06/19 shows no significant change, small effusions and consolidation persist Oxygen walk test ordered for later today History of alcohol abuse Monitor per CIWA protocol Patient counseled to quit drinking Tobaccoism Patient counseled to quit tobacco use He states he will no longer smoke DVT Prophylaxis Heparin
--- NOTE | 2018-06-21 16:19 | P.PNPAL ---
Reason for Visit Reason for visit: a. To assist with evaluation and management of symptoms including: dyspnea, pain b. To assist medical decision maker(s) with: better understanding of current medical conditions; weighing benefits/burdens of medical treatment options; making medical treatment decisions. Subjective Subjective/Interval History: Pt seen today to follow up on comfort, goals. Received a call from patient brother in [place] prior to my arrival to patient unit. Updated him, on available information that patient stable based on review of electronic chart, and that I could update him further once I had physically seen the patient. I also further advised that the patient may be able to speak to him himself if he is speaking well off of ventilator. Status post medical extubation 06/18. Tolerating nasal cannula. Status post ST evaluation, tolerating regular diet. Good p.o. intake. Ambulatory with PT, minimal assistance. Cardiology following . CBC stable, unremarkable. BUN and creatinine trending up 36/2.08. Diuretics changed to oral from IV. Dual visit with Xenia Pulliam APRN. Patient seen in room, he is initially sleeping though arouses forgetful to date though otherwise fairly clear on timeline. Is aware he is in the hospital though endorses he or things that occurred while he was on mechanical ventilator. He does appear to have good memory intact up until day of presentation. He endorses in the few weeks before his acute hospitalization he did have some severe chest pain that he thought was very bad reflux. He also endorses over a couple of weeks having edema to bilateral lower he also endorses having some shortness of breath which limited his activity and worsened acutely on the day of presentation. He endorses being primarily sedentary living home alone, and caring for multiple cats which he shares his responsibility with a neighbor. Further explore with him his understanding of his acute hospitalization and conditions. He indicates he understands "his heart is all blocked up "but he does not really know what that means long-term. He indicates he plans on exercising more when he gets out of the hospital help things. He indicates he has not drink alcohol in some time and has only been having an occasional cigarette. Explore with him cardiac diagnoses and possible trajectory that if his EF remains limited he may experience significant symptoms and limited life expectancy. Further explore with him that if he declines or worsens he may be appropriate for hospice if he did not desire acute hospitalization, and wanted comfort measures only. Further explore that his cardiac condition may remain stable and well managed though he would remain at risk for further cardiac and respiratory complications. He indicates he is feeling okay currently no chest pain. No shortness of breath. Denies any nausea or other GI complaints. Good appetite. Feels like he is ready to go home. He does agree that he will probably need fatigued or weaker. He is amenable to possibly home health and DME such as a shower chair. Review of CODE STATUS with him he indicates he is not sure if he would want to remain a full code or would want DNR. Review of benefits/burdens/limitations of CPR. Explore with him healthcare surrogate designation. He indicates he is not sure if his brother should remain surrogate as he is all the way in [place] and he does not wish to travel him. He is also not sure if he wishes to remain a full code or DNR. He indicates he wishes to think more about these things. Advised him that his brother had asked me for a call back later with an update however if he wishes to call his brother he can do that as well. He tells me that he will call him instead. All questions answered to the best of my ability. Goals at this time appear aggressive though he indicates he will think going forward further about CODE STATUS and healthcare surrogate. Advance Directives Health Care Surrogate: Copy in medical record Health Care Surrogate Name and Number: Brother [facility] Objective Vital Signs: Vital Signs 06/20/18 19:00 06/20/18 20:00 06/20/18 21:00 Temperature 98.3 F Pulse Rate 92 H 96 H 90 Respiratory Rate 19 Blood Pressure 122/78 Pulse Oximetry 99 06/20/18 22:00 06/20/18 23:00 06/21/18 03:00 Temperature 98.1 F 98 F Pulse Rate 80 83 86 Respiratory Rate 18 18 Blood Pressure 97/61 L 95/51 L Pulse Oximetry 99 97 06/21/18 04:00 06/21/18 05:00 06/21/18 06:00 Temperature Pulse Rate 84 84 82 Respiratory Rate Blood Pressure Pulse Oximetry 06/21/18 07:00 06/21/18 08:00 06/21/18 09:00 Temperature 98.2 F Pulse Rate 80 94 H 78 Respiratory Rate 18 Blood Pressure 141/77 H Pulse Oximetry 95 06/21/18 09:27 06/21/18 10:50 06/21/18 11:59 Temperature Pulse Rate 81 78 81 Respiratory Rate Blood Pressure Pulse Oximetry 06/21/18 12:00 06/21/18 13:00 06/21/18 14:00 Temperature 98.1 F Pulse Rate 86 78 78 Respiratory Rate 16 Blood Pressure 143/69 H Pulse Oximetry 96 06/21/18 14:15 Temperature Pulse Rate 80 Respiratory Rate Blood Pressure Pulse Oximetry Intake & Output 06/20/18 06/21/18 06/21/18 18:59 06:59 18:59 Intake Total 680 / 680 440 / 440 100 / 100 Output Total 600 / 600 825 / 825 Balance 80 / 80 -385 / -385 100 / 100 Weight 67 kg Intake: IV 200 / 200 200 / 200 100 / 100 Zosyn 4.5 GM Premix 4.5 gm In 200 / 200 200 / 200 100 / 100 100 ml @ 200 mls/hr IV.SIG Q6H [facility] Rx#:[id number] Oral 480 / 480 240 / 240 Output: Urine 600 / 600 825 / 825 Other: Date of Last Bowel Movement 06/17/18 Physical Exam: CONSTITUTIONAL/GENERAL: This is an adequately nourished patient, alert, oriented TUBES/LINES/DRAINS:PIV UE SKIN: No jaundice, rashes, or lesions. No wounds seen anteriorly. Skin warm/ dry. CARDIOVASCULAR: Regular rate and rhythm without murmur. No JVD. Peripheral pulses symmetric. No peripheral edema RESPIRATORY/CHEST: Symmetric, unlabored respirations on room air. Clear. Breath sounds equal bilaterally. GASTROINTESTINAL: Abdomen soft, non-tender, nondistended. No hepato-splenomegaly , or palpable masses. No guarding. Bowel sounds present. GENITOURINARY: Without palpable bladder distension. MUSCULOSKELETAL: Extremities without clubbing, cyanosis, or edema. No joint tenderness or effusion noted. No calf tenderness. No mottling or clubbing. NEUROLOGICAL: Alert, oriented and appropriate. Forgetful to date only otherwise cognitively sharp. Talkative. Appears to have reasonable insight though does not recall time on mechanical ventilator. Moves all 4 extremities well with good strength. PSYCHOLOGICAL: No obvious depression or anxiety. Talkative. Diagnostic Tests Laboratory: Laboratory Results - last 72 hr 06/18/18 06/19/18 06/19/18 17:44 00:18 04:34 WBC 6.6 RBC 3.32 L Hgb 11.0 L Hct 32.5 L MCV 97.8 MCH 33.2 MCHC 34.0 RDW 14.0 Plt Count 110 L MPV 10.5 Neut % (Auto) 64.4 Lymph % (Auto) 20.3 [place] % (Auto) 9.5 H Eos % (Auto) 5.2 H Baso % (Auto) 0.6 Neut # (Auto) 4.2 Lymph # (Auto) 1.3 [place] # (Auto) 0.6 Eos # (Auto) 0.3 Baso # (Auto) 0.0 WBC Differential . Differential Comment Auto diff final Sodium Potassium Chloride Carbon Dioxide Anion Gap BUN Creatinine Estimated GFR POC Glucose 117 H 113 H Random Glucose Calcium Phosphorus Magnesium Total Bilirubin AST ALT Alkaline Phosphatase Total Protein Albumin Urine Color Urine Clarity Urine pH Ur Specific [place] Urine Protein Urine Glucose (UA) Urine Ketones Urine Occult Blood Urine Nitrate Urine Bilirubin Urine Urobilinogen Ur Leukocyte Esterase Urine RBC Urine WBC Ur Squamous Epith Cells Urine Mucus Micro UA Comment Ur Microscopic Review Urine Culture Comments 06/19/18 06/19/18 06/20/18 04:34 13:51 04:52 WBC 6.2 RBC 3.73 L Hgb 12.3 L Hct 36.9 L MCV 99.1 MCH 33.0 MCHC 33.3 RDW 14.1 Plt Count 107 L MPV 10.8 Neut % (Auto) 62.9 Lymph % (Auto) 16.9 [place] % (Auto) 12.3 H Eos % (Auto) 6.6 H Baso % (Auto) 1.3 Neut # (Auto) 3.9 Lymph # (Auto) 1.0 [place] # (Auto) 0.8 Eos # (Auto) 0.4 Baso # (Auto) 0.1 WBC Differential . Differential Comment Auto diff final Sodium 146 H Potassium 3.7 Chloride 108 H Carbon Dioxide 29.2 Anion Gap 9 BUN 26 H Creatinine 1.40 H Estimated GFR 50 L POC Glucose Random Glucose 102 Calcium 7.6 L Phosphorus 3.6 D Magnesium 2.4 Total Bilirubin 0.5 AST 22 ALT 16 Alkaline Phosphatase 54 Total Protein 6.0 L Albumin 2.3 L Urine Color Yellow Urine Clarity Cloudy H Urine pH 5.0 Ur Specific [place] 1.013 Urine Protein Negative Urine Glucose (UA) Negative Urine Ketones Negative Urine Occult Blood Large H Urine Nitrate Negative Urine Bilirubin Negative Urine Urobilinogen Less than 2 Ur Leukocyte Esterase Negative Urine RBC Urine WBC 1 Ur Squamous Epith Cells <1 Urine Mucus Few H Micro UA Comment Culture not ind Ur Microscopic Review Not Reportable Urine Culture Comments Culture not ind 06/20/18 06/21/18 06/21/18 04:52 03:33 03:33 WBC 4.8 RBC 3.99 L Hgb 13.0 Hct 39.2 MCV 98.3 MCH 32.7 MCHC 33.2 RDW 13.9 Plt Count 145 L D MPV 10.5 Neut % (Auto) 53.9 Lymph % (Auto) 23.1 [place] % (Auto) 11.7 H Eos % (Auto) 10.3 H Baso % (Auto) 1.0 Neut # (Auto) 2.6 Lymph # (Auto) 1.1 [place] # (Auto) 0.6 Eos # (Auto) 0.5 H Baso # (Auto) 0.0 WBC Differential . Differential Comment Auto diff final Sodium 141 141 Potassium 4.0 4.0 Chloride 102 100 Carbon Dioxide 26.7 28.2 Anion Gap 12 13 BUN 31 H 36 H Creatinine 1.96 H 2.08 H Estimated GFR 34 L 32 L POC Glucose Random Glucose 98 97 Calcium 8.2 L 8.8 Phosphorus 4.1 4.5 Magnesium 2.5 2.5 Total Bilirubin 1.0 0.6 AST 27 32 ALT 16 21 Alkaline Phosphatase 51 53 Total Protein 7.1 D 7.9 D Albumin 2.5 L 2.8 L Urine Color Urine Clarity Urine pH Ur Specific [place] Urine Protein Urine Glucose (UA) Urine Ketones Urine Occult Blood Urine Nitrate Urine Bilirubin Urine Urobilinogen Ur Leukocyte Esterase Urine RBC Urine WBC Ur Squamous Epith Cells Urine Mucus Micro UA Comment Ur Microscopic Review Urine Culture Comments Result Diagrams: 06/21/18 03:33 06/21/18 03:33 Microbiology: Microbiology 06/19/18 13:55 Gram Stain - Final Sputum - Expectorated Sputum Sputum Culture - Final Pseudomonas aeruginosa Stenotrophomonas maltophilia 06/19/18 13:20 Aerobic Blood Culture - Preliminary Blood - Peripheral No growth in 2 days Anaerobic Blood Culture - Preliminary No growth in 2 days 06/19/18 13:25 Aerobic Blood Culture - Preliminary Blood - Peripheral No growth in 2 days Anaerobic Blood Culture - Preliminary No growth in 2 days 06/16/18 21:00 Gram Stain - Final Sputum - Endotracheal Sputum Culture - Final Heavy growth normal respiratory audrey Procedures: 06/16 intubation 06/16 cardiac catheterization Assessment and Plan - Disease Oriented Problem List (1) Sciatica (2) History of alcohol abuse (3) ST elevation (STEMI) myocardial infarction Pertinent Non-Medical Issues: Psychosocial:Prev lived at home alone. Spiritual:unk Legal:ACCURINT search has been requested 06/16/18 . If no family/NOK is able to be identified, may need to enlist outside decision maker such as [employer] to assist with decision making. Pt to exam is alert, appears partially to mostly oriented. Possible he may be medically extubated in the coming days and in this case he may be able to participate and make his own decisions, he also may be able to complete designation of healthcare surrogate. Today he is also requested I call a close friend named Martha he indicates he would want this person called before his brother and trust her to make medical decisions. He confirms a brother in [facility]. I have left with Martha. current Visit: Son Liz [id number] name is apparently Ashvin (Liliana Painter, 48 via prior EMR records found other name Melvin Painter, 48; listed possible parent/contact as Kenya Painter, (may be ?) [phone]. There is mention of a possible brother in [place]. Ethical issues impacting care: no ethical issues identified Important Contacts: Brother [place], [place] [phone] , ROSIO DO NOT GIVE TO PT: local friend Martha Adair--- [phone] 2 sisters? . Prognosis: This pt was admitted from home for NSTEMI. + LAD occlusion, unable to open per cardiac catheterization. Required emergent intubation. Currently stable, neurologically intact. Possible he can get through this and return to prior status with ongoing aggressive treatment. At risk for further complications/ setbacks during this acute phase. space technologist cardiac level of recovery not known at this time. Indicates previously in good overall health. Code Status: Full Code Plan: * Legal decision maker: Status post medical extubation 06/18, patient now able to participate and make his own needs known. Able to write/designate HCS Brother Nick on 06/16/18 * Goals: Goals at this time appear aggressive though he indicates he will think going forward further about CODE STATUS and healthcare surrogate. * CODE STATUS: FULL CODE * SYMPTOMS: --dyspnea- emergently intubated, Currently breathing comfortably on mech vent , light sedation versed + fentanyl. Medically extubated 06/18, indicates some minor throat discomfort however no pain. No further dyspnea. Tolerating nasal cannula initially, now on room air. --Pain-patient endorsed history of sciatica pain to right hip and back . Also endorses chest pain in the weeks leading up to acute hospitalization. currently not with chest pain or sciatica pain. We will continue to evaluate. * Palliative care will continue to follow during hospital course as condition evolves, to assist patient/decision-maker with understanding of medical conditions, weighing benefits/burdens of treatment options, for clarification of goals of treatment. Additionally will assist with any symptoms of palliative concern Attestation Attestation: To help prompt me to consider important information that might be impacting today's encounter and assessment, information from prior notes written by myself or my colleagues may have been "brought forward" into today's note. My signature on this note, however, is an attestation that I personally performed the exam, history, and/or decision-making noted today, and, unless otherwise indicated, the interactions with patient, family, and staff as well as the review of records all occurred today. I also attest that the listed assessment and stated plan reflect my best clinical judgment today based on the combination of historical information, prior notes, and today's exam/ interactions. When time spent is documented, it refers only to time spent today by the signer, or if indicated, combined time spent today by collaborating physician/nurse practitioner.
[2018-06-22] MEDS: Oral Hygiene Kit OROPHARYNG SCH ×4 (00:11→17:21)
[2018-06-22 05:42] LABS: Carbon Dioxide 27.6 meq/L (21.0-32.0); Potassium 4.4 meq/L (3.5-5.1)
[2018-06-22] MEDS: Pantoprazole Inj 40 MG Vial IV.PUSH SCH (08:59)
[2018-06-22] MEDS ORDERED: Torsemide 20 MG Tablet PO SCH (09:00)
[2018-06-22] MEDS: Senna/Docusate Sodium 8.6/50 MG Tablet PO SCH (09:01)
[2018-06-22] MEDS: Heparin - SQ 10,000 UNITS/ML Vial SQ SCH ×2 (09:01→21:09)
[2018-06-22] MEDS: Chlorhexidine 0.12% Oral Kit 15 ML UDC OROPHARYNG SCH ×2 (09:02→20:02)
[2018-06-22] MEDS: Metoprolol Tartrate 25 MG Tablet PO SCH ×2 (09:02→21:10)
[2018-06-22] MEDS: Carboxymethylcellulose 0.5% Opth Drops 15 ML Bottle EACH EYE SCH ×2 (09:04→21:10)
[2018-06-22] MEDS: Piperacil/Tazo 4.5 GM Premix 4.5 GM/100 ML BAG IV.SIG SCH ×3 (09:06→23:55)
--- NOTE | 2018-06-22 09:27 | P.PNCA ---
Subjective Interval history: no complaints Medications and Allergies Active Medications: Active Medications Acetaminophen (Tylenol Liq) 650 mg PO Q6H PRN PRN Reason: FEVER Last Admin: 06/19/18 11:36 Dose: 650 mg Al Hydroxide/Mg Hydroxide (Milk Of Magnesia Liq) 30 ml PO Q12H PRN PRN Reason: Mild Constipation Albuterol (Albuterol Neb (Prn)) 2.5 mg NEB Q2HR NEB PRN PRN Reason: SHORTNESS OF BREATH/WHEEZING Artificial Tears (Refresh Tears 0.5% Opth Drops) 1 drop EACH EYE BID [facility] Last Admin: 06/22/18 09:04 Dose: Not Given Aspirin (Aspirin Chew) 81 mg PO DAILY [facility] Last Admin: 06/22/18 09:01 Dose: 81 mg Atorvastatin Calcium (Lipitor) 10 mg PO HS [facility] Last Admin: 06/21/18 21:27 Dose: 10 mg Bisacodyl (Dulcolax Supp) 10 mg RECTAL DAILY PRN PRN Reason: SEVERE CONSITIPATION Chlorhexidine Gluconate (Peridex 0.12% Oral Kit) 15 ml OROPHARYNG BID@0800, 2000 [facility] Last Admin: 06/22/18 09:02 Dose: Not Given Dextrose (D50w Vial) 50 ml IV.PUSH UNSCH PRN PRN Reason: PER HYPOGLYCEMIA PROTOCOL Glucagon (Glucagon Inj) 1 mg OTHER UNSCH PRN PRN Reason: for Hypoglycemia Protocol Heparin Sodium (Porcine) (Heparin Inj) 5,000 units SQ Q12HR [facility] Last Admin: 06/22/18 09:01 Dose: 5,000 units Piperacillin/Tazobactam/Dextrose (Zosyn 4.5 Gm Premix) 4.5 gm in 100 mls @ 200 mls/hr IV.SIG Q8H [facility] Last Admin: 06/22/18 09:06 Dose: 200 mls/hr Lactulose (Lactulose Liq) 30 ml PO DAILY PRN PRN Reason: SEVERE CONSITIPATION Metoprolol Tartrate (Lopressor) 12.5 mg PO BID [facility] Last Admin: 06/22/18 09:02 Dose: 12.5 mg Miscellaneous (Pill Splitter) 1 each OTHER PRN [facility] Miscellaneous Medication () 1 each OROPHARYNG 0000,0400,1200,1600 [facility] Last Admin: 06/22/18 03:47 Dose: Not Given Pantoprazole Sodium (Protonix Inj) 40 mg IV.PUSH DAILY [facility] Last Admin: 06/22/18 08:59 Dose: 40 mg Senna/Docusate Sodium (Adia-Colace) 1 tab PO BID [facility] Last Admin: 06/22/18 09:01 Dose: 1 tab Sennosides (Senokot) 17.2 mg PO Q12H PRN PRN Reason: Moderate Constipation Sodium Chloride (Ns Flush) 2 ml IV.FLUSH BID [facility] Last Admin: 06/22/18 09:03 Dose: 2 ml Sodium Chloride (Ns Flush) 2 ml IV.FLUSH UNSCH PRN PRN Reason: FLUSH AFTER USING IV ACCESS Sodium Chloride (Ns Flush) 0 ml IV.FLUSH DAILY [facility] Last Admin: 06/22/18 09:03 Dose: Not Given Sterile Water (Free Water) 100 ml G-TUBE Q8HR [facility] Last Admin: 06/22/18 05:21 Dose: Not Given Terbutaline Sulfate (Brethine Inj) 1 mg SQ UNSCH PRN PRN Reason: For Extravasation Allergies Allergy/AdvReac Type Severity Reaction Status Date / Time No Known Allergies Allergy Verified 06/16/18 06:46 Home Medications Medication Instructions Recorded Confirmed Type No Known Home Medications 06/16/18 06/16/18 History Physical Exam Vital signs: Vital Signs 06/21/18 09:27 06/21/18 10:50 06/21/18 11:59 Temperature Pulse Rate 81 78 81 Respiratory Rate Blood Pressure Pulse Oximetry 06/21/18 12:00 06/21/18 13:00 06/21/18 14:00 Temperature 98.1 F Pulse Rate 86 78 78 Respiratory Rate 16 Blood Pressure 143/69 H Pulse Oximetry 96 06/21/18 14:15 06/21/18 16:00 06/21/18 16:45 Temperature 98.2 F Pulse Rate 80 90 72 Respiratory Rate 16 Blood Pressure 122/77 Pulse Oximetry 96 06/21/18 18:00 06/21/18 19:00 06/21/18 20:00 Temperature 98.3 F Pulse Rate 80 91 H 90 Respiratory Rate 18 Blood Pressure 106/60 Pulse Oximetry 95 06/21/18 21:00 06/21/18 22:00 06/21/18 23:00 Temperature Pulse Rate 82 82 86 Respiratory Rate Blood Pressure Pulse Oximetry 06/22/18 00:00 06/22/18 01:00 06/22/18 02:00 Temperature 98.0 F Pulse Rate 86 97 H 77 Respiratory Rate 15 Blood Pressure 107/70 Pulse Oximetry 96 06/22/18 03:00 06/22/18 04:00 06/22/18 05:00 Temperature 97.9 F Pulse Rate 86 85 87 Respiratory Rate 15 Blood Pressure 99/66 L Pulse Oximetry 96 06/22/18 06:00 Temperature Pulse Rate 82 Respiratory Rate Blood Pressure Pulse Oximetry Intake & Output 06/21/18 06/22/18 06/22/18 18:59 06:59 18:59 Intake Total 1160 / 1160 580 / 580 Output Total 850 / 850 500 / 500 Balance 310 / 310 80 / 80 Weight 67.5 kg Intake: IV 200 / 200 100 / 100 Zosyn 4.5 GM Premix 4.5 gm In 200 / 200 100 / 100 100 ml @ 200 mls/hr IV.SIG Q8H [facility] Rx#:[id number] Oral 960 / 960 480 / 480 Output: Urine 850 / 850 500 / 500 Other: Date of Last Bowel Movement 06/21/18 # Bowel Movements 1 1 - Constitutional no acute distress - Routine HEENT Exam Head: Present: normocephalic, atraumatic - Routine Neck Exam Present: supple. Absent: JVD - Routine Respiratory Exam Comments: Mild reduced BS, no rales - Routine Cardiovascular Exam Present: RRR, S1, S2 - Routine Abdominal Exam Present: soft - Routine Extremities Exam Absent: edema - Routine Neurological Exam Present: alert, oriented X3 - Urinary Catheter Management Indwelling Urethral Catheter Cath placed during this visit: yes, but has since been removed by the nurse Reason for continuing: Decision to DC catheter Insertion date: 06/16/18 Removal date: 06/20/18 Removal time: 09:30 Results 06/21/18 03:33 06/22/18 04:40 Cardiac Enzymes 06/21/18 Range/Units 03:33 AST 32 (15-37) U/L CBC 06/21/18 Range/Units 03:33 WBC 4.8 (4.0-11.0) th/mm3 RBC 3.99 L (4.50-5.90) mil/mm3 Hgb 13.0 (13.0-17.0) gm/dL Hct 39.2 (39.0-51.0) % Plt Count 145 L D (150-450) th/mm3 Neut # (Auto) 2.6 (1.8-7.7) th/mm3 Lymph # (Auto) 1.1 (1.0-4.8) th/mm3 [place] # (Auto) 0.6 (0.0-0.9) th/mm3 Eos # (Auto) 0.5 H (0.0-0.4) th/mm3 Baso # (Auto) 0.0 (0.0-0.2) th/mm3 Comprehensive Metabolic Panel 06/21/18 06/22/18 Range/Units 03:33 04:40 Sodium 141 140 (136-145) meq/L Potassium 4.0 4.4 (3.5-5.1) meq/L Chloride 100 101 (98-107) meq/L Carbon Dioxide 28.2 27.6 (21.0-32.0) meq/L BUN 36 H 40 H (7-18) mg/dL Creatinine 2.08 H 2.33 H (0.60-1.30) mg/dL Calcium 8.8 9.0 (8.5-10.1) mg/dL AST 32 (15-37) U/L ALT 21 (12-78) U/L Alkaline Phosphatase 53 (45-117) U/L Total Protein 7.9 D (6.4-8.2) g/dL Albumin 2.8 L (3.4-5.0) g/dL Intake and Output 06/21/18 06/22/18 06/22/18 22:59 06:59 14:59 Intake Total 1060 / 1060 580 / 580 Output Total 850 / 850 500 / 500 Balance 210 / 210 80 / 80 Intake: IV 100 / 100 100 / 100 Zosyn 4.5 GM Premix 4.5 gm In 100 / 100 100 / 100 100 ml @ 200 mls/hr IV.SIG Q8H [facility] Rx#:[id number] Oral 960 / 960 480 / 480 Output: Urine 850 / 850 500 / 500 Other: Date of Last Bowel Movement 06/21/18 # Bowel Movements 1 1 Weight 67.5 kg Assessment and Plan - Assessment (1) Anterior myocardial infarction Code(s): I21.09 - ST elevation (STEMI) myocardial infarction involving other coronary artery of anterior wall Status: Acute (2) Acute systolic CHF (congestive heart failure) Code(s): I50.21 - Acute systolic (congestive) heart failure Status: Acute (3) Tobacco abuse Code(s): Z72.0 - Tobacco use Status: Acute (4) Cardiogenic shock Code(s): R57.0 - Cardiogenic shock Status: Acute (5) 2-vessel coronary artery disease Code(s): I25.10 - Atherosclerotic heart disease of three affiliated coronary artery without angina pectoris Status: Acute (6) Occlusion of LAD (left anterior descending) artery Code(s): I24.0 - Acute coronary thrombosis not resulting in myocardial infarction Status: Acute (7) Azotemia Code(s): R79.89 - Other specified abnormal findings of blood chemistry Status : Acute Plan: Hold diuretic and hold lisinopril - Plan Condition has improved. BUN/creat are up - change diuretic to PO
[2018-06-22] MEDS ORDERED: Potassium Chloride 25 MEQ Effervescent Tablet PO SCH (10:00)
[2018-06-22] MEDS ORDERED: [UNRECOGNIZED DRUG - OTHER] IM ONE (11:16)
--- NOTE | 2018-06-22 11:33 | P.DIET ---
Nutritional Evaluation Type of nutrition evaluation: follow-up Nutrition consult regarding: Tube Feeding Screening comments: TFing d/c'ed on (06/18) Objective - Diagnosis STEMI anterior - Objective % IBW: 96 (IBW = 166#) Body Weight Used for Calculations: Actual (72.6 kg) Energy Needs - Lower Range (kCal/kg): 28 Energy Needs - Upper Range (kCal/kg): 32 Lower Limit kCal/kg (kCals): 2,033 Upper Limit kCal/kg (kCals): 2,323 Lower Limit Protein Factor (Grams per Kg): 1.0 Upper Limit Protein Factor (Grams per Kg): 1.5 Lower Protein Needs (Protein): 73 Upper Protein Needs (Protein): 109 Dietitian Reviewed in Medical Record: Current diet, Curent medications, Intake & Output, Labs, Medical history Diet Order: Heart healthy Objective Comments: HgA1c 6.0 Assessment Assessment: Pt extubated and TFing stopped on 06/18. Diet has been advanced to regular Heart Healthy. Adequate po intake has not yet been established. RD will monitor po intake and assess the need for supplements. Recommendations: Continue current diet RD following Dietitian to Monitor: Lab values, Intake & Output, Diet tolerance, Weight change , PO Intake, Medical course
--- NOTE | 2018-06-22 16:33 | P.DCO ---
- Physical Therapy Order: Evaluate and treat - Home Health Nursing Order: Medical education, Signs/symptoms of disease process, CHF education, Nursing assessment with vital signs - Case Management Consult No - Certification I have seen patient Melvin Painter on 06/22/18. My clinical findings support the need for the requested home health care services because: Limited mobility due to disease progression, Patient has SOB, Deconditioned with increased weakness, Medication compliance is questionable, High risk of falls I certify that my clinical findings support that this patient is homebound because: Unsteady gait/balance, Unsafe to leave home unassisted, Unable to use public transportation, Poor cardiac reserve
--- NOTE | 2018-06-22 16:39 | P.DS ---
Date of admission: 06/16/18 07:05 Primary care physician: No Primary Care Physician Brief History from admission: This is a 67-year-old male. Actual name name is Ashvin Painter. Date of admission 06/16/2018. Past medical history includes sciatica. Patient is a former alcoholic but quit a few weeks ago prior to intubation. He has smoked for 50 years. Presents to [facility] today with chief complaint of chest pain. This is been present for the past week. Did not describe radiation of the neck the back and chest of the left arm prior to intubation. He was noted to have a low saturation on arrival of paramedics, however became combative due to claustrophobia on CPAP. N is placed on 100% nonrebreather, given sublingual nitrogen and furosemide Stimulator was called as patient had ST elevation in the anterior/lateral leads. Patient went to [facility] was noted to have mid to distal LAD 100%, diagonal 50%. 100 percent to left circumflex. 40% % RCA. Ejection fraction 15 -20%. Failed PCI to LAD. Patient was started on clevidipine drip due to hypertension.\\\\ I have asked the patient, patient was acidotic and tachypnea. Received 40 of IV furosemide in the [facility] and along with started on carvedilol 650 twice daily and lisinopril 10 mg twice daily. Due to the pulmonary edema, we are intubated the patient with 20 mg time and 50 mg of rocuronium. Central line is in place. Arterial has been placed for DS: Medications - Discharge Medications Prescriptions: aspirin 81 mg PO DAILY #30 tab atorvastatin [Lipitor] 10 mg PO HS #30 tab azithromycin 500 mg PO DAILY 3 Days #3 tab metoprolol tartrate 12.5 mg PO BID #30 tab nitroglycerin [Nitrostat] 0.4 mg SUBLINGUAL Q5-15M PRN #90 tab PRN Reason: Chest Pain DS: Summary Hospital Course: 67-year-old male admitted on 06/16/2018 with respiratory failure secondary to pleural effusion from acute [facility]. He had ST elevations in his anterior and lateral leads, went to [facility] and had mid to distal LAD at 100%, 100% to left circumflex. LAD was unable to be stented. Ejection fraction at time of heart catheterization was 15-20%. He has a history of alcoholism, but quit a few weeks prior to admission. He has a 50-year smoking history. At time of admission he was deemed to not be a candidate for CABG. He recovered well from his ordeal, graduated from the ICU, and has performed well with physical therapy , passing oxygen walk test as well today. We had a discussion about diet and the importance of reducing cholesterol rich foods while raising fiber in plant- based foods. His neighbor is a vegetarian and he plans to investigate this diet for treatment of his coronary artery disease. In the meantime he has follow-up with his primary care doctors [facility]. He feels comfortable with the idea of going home today but his ride will be available tomorrow morning. All medications have been provided to him. On x-ray he still has some level of consolidation showing up on film, so he will be sent home with Zithromax. - Time Spent with Patient Total time spent providing and/or coordinating discharge services: Less than 30 minutes Exam Vital signs: Vital Signs 06/21/18 16:45 06/21/18 18:00 06/21/18 19:00 Temperature Pulse Rate 72 80 91 H Respiratory Rate Blood Pressure Pulse Oximetry Pulse Oximetry [Exertion on Room Air] Pulse Oximetry [Resting on Room Air] 06/21/18 20:00 06/21/18 21:00 06/21/18 22:00 Temperature 98.3 F Pulse Rate 90 82 82 Respiratory Rate 18 Blood Pressure 106/60 Pulse Oximetry 95 Pulse Oximetry [Exertion on Room Air] Pulse Oximetry [Resting on Room Air] 06/21/18 23:00 06/22/18 00:00 06/22/18 01:00 Temperature 98.0 F Pulse Rate 86 86 97 H Respiratory Rate 15 Blood Pressure 107/70 Pulse Oximetry 96 Pulse Oximetry [Exertion on Room Air] Pulse Oximetry [Resting on Room Air] 06/22/18 02:00 06/22/18 03:00 06/22/18 04:00 Temperature 97.9 F Pulse Rate 77 86 85 Respiratory Rate 15 Blood Pressure 99/66 L Pulse Oximetry 96 Pulse Oximetry [Exertion on Room Air] Pulse Oximetry [Resting on Room Air] 06/22/18 05:00 06/22/18 06:00 06/22/18 07:00 Temperature Pulse Rate 87 82 90 Respiratory Rate Blood Pressure Pulse Oximetry Pulse Oximetry [Exertion on Room Air] Pulse Oximetry [Resting on Room Air] 06/22/18 08:00 06/22/18 09:00 06/22/18 10:54 Temperature 97.3 F L Pulse Rate 90 83 90 Respiratory Rate 18 Blood Pressure 151/84 H Pulse Oximetry 98 Pulse Oximetry [Exertion on Room Air] Pulse Oximetry [Resting on Room Air] 06/22/18 12:00 06/22/18 13:00 06/22/18 13:45 Temperature 98.2 F Pulse Rate 83 74 Respiratory Rate 18 Blood Pressure 135/86 Pulse Oximetry 98 Pulse Oximetry [Exertion on Room Air] 97 Pulse Oximetry [Resting on Room Air] 98 06/22/18 14:00 06/22/18 15:00 Temperature Pulse Rate 80 71 Respiratory Rate Blood Pressure Pulse Oximetry Pulse Oximetry [Exertion on Room Air] Pulse Oximetry [Resting on Room Air] Intake & Output 06/21/18 06/22/18 06/22/18 18:59 06:59 18:59 Intake Total 1160 / 1160 580 / 580 100 / 100 Output Total 850 / 850 500 / 500 Balance 310 / 310 80 / 80 100 / 100 Weight 67.5 kg Intake: IV 200 / 200 100 / 100 100 / 100 Zosyn 4.5 GM Premix 4.5 gm In 200 / 200 100 / 100 100 / 100 100 ml @ 200 mls/hr IV.SIG Q8H [facility] Rx#:[id number] Oral 960 / 960 480 / 480 Output: Urine 850 / 850 500 / 500 Other: Date of Last Bowel Movement 06/21/18 # Bowel Movements 1 1 Results Procedures completed during hospitalization: Cardiac catheterization 06/16/2018 Intubation 06/16/2018 Labs on day of discharge: Labs from last 24 hours 06/22/18 04:40 Sodium 140 Potassium 4.4 Chloride 101 Carbon Dioxide 27.6 Anion Gap 11 BUN 40 H Creatinine 2.33 H Estimated GFR 28 L Random Glucose 103 Calcium 9.0 Preliminary micro results at discharge 06/19/18 13:20 Aerobic Blood Culture - Preliminary Blood - Peripheral No growth in 3 days Anaerobic Blood Culture - Preliminary No growth in 3 days 06/19/18 13:25 Aerobic Blood Culture - Preliminary Blood - Peripheral No growth in 3 days Anaerobic Blood Culture - Preliminary No growth in 3 days - Impressions ITS Impressions Abdomen/Bladder Ultrasound 06/16/18 00:00 CONCLUSION: The kidneys are at the lower limits for normal in size. Otherwise, no abnormality is identified. There is no hydronephrosis. Chest X-Ray 06/18/18 06:00 CONCLUSION: No significant change mid and lower lung consolidation with small effusions on both sides. Discharge Plan - Discharge Disposition Patient Disposition: /Home Health Service - Discharge Condition Condition: Fair - Discharge Order Discharge Orders: Discharge Order (Routine); Ordered 06/22/18 Ordered By: Shamar Mccallum - Discharge Details Discharge Comment: January discharge with "Martha", his friend, likely picking him up early tomorrow morning. - Physicians Team Primary Care Provider: Primary Care Physici,No Attending Provider: Shamar Mccallum Other Providers: Lester Sadler MD ; Giovany Wilkes MD ; Diane Ingram MD ; Olayinka Bhagat
[2018-06-23] MEDS: Oral Hygiene Kit OROPHARYNG SCH ×2 (00:42→04:11)
[2018-06-23 04:07] VITALS: RESP 18; TEMP 97.7
[2018-06-23 05:48] LABS: Calcium 8.6 mg/dL (8.5-10.1); Carbon Dioxide 28.1 meq/L (21.0-32.0); Potassium 4.5 meq/L (3.5-5.1)
[2018-06-23] MEDS: Pantoprazole Inj 40 MG Vial IV.PUSH SCH (08:20)
[2018-06-23] MEDS: Piperacil/Tazo 4.5 GM Premix 4.5 GM/100 ML BAG IV.SIG SCH (08:21)
[2018-06-23] MEDS: Metoprolol Tartrate 25 MG Tablet PO SCH (08:22)
[2018-06-23] MEDS: Heparin - SQ 10,000 UNITS/ML Vial SQ SCH (08:22)
[2018-06-23] MEDS: Chlorhexidine 0.12% Oral Kit 15 ML UDC OROPHARYNG SCH (08:58)
[2018-06-23] MEDS: Carboxymethylcellulose 0.5% Opth Drops 15 ML Bottle EACH EYE SCH (08:59)
[2018-06-23 09:11] VITALS: BP 128/72; PULSE 80; O2SAT 97
--- NOTE | 2018-06-23 10:52 | P.PNCA ---
Subjective Interval history: No complaints Medications and Allergies Active Medications: Active Medications Acetaminophen (Tylenol Liq) 650 mg PO Q6H PRN PRN Reason: FEVER Last Admin: 06/19/18 11:36 Dose: 650 mg Albuterol (Albuterol Neb (Prn)) 2.5 mg NEB Q2HR NEB PRN PRN Reason: SHORTNESS OF BREATH/WHEEZING Artificial Tears (Refresh Tears 0.5% Opth Drops) 1 drop EACH EYE BID [facility] Last Admin: 06/23/18 08:59 Dose: Not Given Aspirin (Aspirin Chew) 81 mg PO DAILY [facility] Last Admin: 06/23/18 08:20 Dose: 81 mg Atorvastatin Calcium (Lipitor) 10 mg PO HS [facility] Last Admin: 06/22/18 21:10 Dose: 10 mg Chlorhexidine Gluconate (Peridex 0.12% Oral Kit) 15 ml OROPHARYNG BID@0800, 2000 [facility] Last Admin: 06/23/18 08:58 Dose: Not Given Dextrose (D50w Vial) 50 ml IV.PUSH UNSCH PRN PRN Reason: PER HYPOGLYCEMIA PROTOCOL Glucagon (Glucagon Inj) 1 mg OTHER UNSCH PRN PRN Reason: for Hypoglycemia Protocol Heparin Sodium (Porcine) (Heparin Inj) 5,000 units SQ Q12HR [facility] Last Admin: 06/23/18 08:22 Dose: 5,000 units Piperacillin/Tazobactam/Dextrose (Zosyn 4.5 Gm Premix) 4.5 gm in 100 mls @ 200 mls/hr IV.SIG Q8H [facility] Last Infusion: 06/23/18 09:12 Dose: Infused Lactulose (Lactulose Liq) 30 ml PO DAILY PRN PRN Reason: SEVERE CONSITIPATION Metoprolol Tartrate (Lopressor) 12.5 mg PO BID [facility] Last Admin: 06/23/18 08:22 Dose: 12.5 mg Miscellaneous (Pill Splitter) 1 each OTHER PRN [facility] Miscellaneous Medication () 1 each OROPHARYNG 0000,0400,1200,1600 [facility] Last Admin: 06/23/18 04:11 Dose: Not Given Pantoprazole Sodium (Protonix Inj) 40 mg IV.PUSH DAILY [facility] Last Admin: 06/23/18 08:20 Dose: 40 mg Sodium Chloride (Ns Flush) 2 ml IV.FLUSH BID [facility] Last Admin: 06/23/18 08:58 Dose: 2 ml Sodium Chloride (Ns Flush) 2 ml IV.FLUSH UNSCH PRN PRN Reason: FLUSH AFTER USING IV ACCESS Sodium Chloride (Ns Flush) 0 ml IV.FLUSH DAILY [facility] Last Admin: 06/23/18 08:59 Dose: Not Given Sterile Water (Free Water) 100 ml G-TUBE Q8HR [facility] Last Admin: 06/23/18 05:16 Dose: Not Given Terbutaline Sulfate (Brethine Inj) 1 mg SQ UNSCH PRN PRN Reason: For Extravasation Allergies Allergy/AdvReac Type Severity Reaction Status Date / Time No Known Allergies Allergy Verified 06/16/18 06:46 Home Medications Medication Instructions Recorded Confirmed Type No Known Home Medications 06/16/18 06/16/18 History Physical Exam Vital signs: Vital Signs 06/22/18 10:54 06/22/18 12:00 06/22/18 13:00 Temperature 98.2 F Pulse Rate 90 83 74 Respiratory Rate 18 Blood Pressure 135/86 Pulse Oximetry 98 Pulse Oximetry [Exertion on Room Air] Pulse Oximetry [Resting on Room Air] 06/22/18 13:45 06/22/18 14:00 06/22/18 15:00 Temperature Pulse Rate 80 71 Respiratory Rate Blood Pressure Pulse Oximetry Pulse Oximetry [Exertion on Room Air] 97 Pulse Oximetry [Resting on Room Air] 98 06/22/18 16:00 06/22/18 17:00 06/22/18 18:00 Temperature 98.3 F Pulse Rate 85 85 80 Respiratory Rate 20 Blood Pressure 130/78 Pulse Oximetry 96 Pulse Oximetry [Exertion on Room Air] Pulse Oximetry [Resting on Room Air] 06/22/18 19:00 06/22/18 20:00 06/22/18 21:00 Temperature 98.7 F Pulse Rate 77 76 75 Respiratory Rate 18 Blood Pressure 143/83 H Pulse Oximetry 98 Pulse Oximetry [Exertion on Room Air] Pulse Oximetry [Resting on Room Air] 06/22/18 22:00 06/22/18 23:00 06/23/18 00:00 Temperature 97.8 F Pulse Rate 78 77 85 Respiratory Rate 16 Blood Pressure 101/62 Pulse Oximetry 98 Pulse Oximetry [Exertion on Room Air] Pulse Oximetry [Resting on Room Air] 06/23/18 01:00 06/23/18 02:00 06/23/18 03:00 Temperature Pulse Rate 75 78 79 Respiratory Rate Blood Pressure Pulse Oximetry Pulse Oximetry [Exertion on Room Air] Pulse Oximetry [Resting on Room Air] 06/23/18 04:00 06/23/18 05:00 06/23/18 06:00 Temperature 97.7 F Pulse Rate 83 80 80 Respiratory Rate 18 Blood Pressure 111/74 Pulse Oximetry 95 Pulse Oximetry [Exertion on Room Air] Pulse Oximetry [Resting on Room Air] 06/23/18 07:00 06/23/18 08:00 06/23/18 09:00 Temperature Pulse Rate 68 77 80 Respiratory Rate 18 Blood Pressure 128/72 Pulse Oximetry 97 Pulse Oximetry [Exertion on Room Air] Pulse Oximetry [Resting on Room Air] Intake & Output 06/22/18 06/23/18 06/23/18 18:59 06:59 18:59 Intake Total 800 / 800 340 / 340 100 / 100 Output Total 850 / 850 450 / 450 Balance -50 / -50 -110 / -110 100 / 100 Weight 69 kg Intake: IV 200 / 200 100 / 100 100 / 100 Zosyn 4.5 GM Premix 4.5 gm In 200 / 200 100 / 100 100 / 100 100 ml @ 200 mls/hr IV.SIG Q8H [facility] Rx#:[id number] Oral 600 / 600 240 / 240 Output: Urine 850 / 850 450 / 450 Other: # Voids 3 Date of Last Bowel Movement 06/23/18 # Bowel Movements 1 Narrative: GENERAL: AAOx3, no acute distress, thin SKIN: Warm and dry. HEAD: Atruamtic, normocephalic. EYES: No scleral icterus. NECK: Supple, trachea midline. No JVD. Normal thyroid. CARDIOVASCULAR: Regular rate and rhythm. No murmurs, gallops, or rubs. RESPIRATORY: Mostly clear, scattered congestion, history of smoking. No accessory muscle use. GASTROINTESTINAL: Abdomen soft, non-tender, nondistended, normal active bowel sounds MUSCULOSKELETAL: No cyanosis, or edema. NEURO: CN II-XII grossly intact, no focal deficits, no slurring of speech - Urinary Catheter Management Indwelling Urethral Catheter Cath placed during this visit: yes, but has since been removed by the nurse Reason for continuing: Decision to DC catheter Insertion date: 06/16/18 Removal date: 06/20/18 Removal time: 09:30 Results 06/21/18 03:33 06/23/18 04:40 Comprehensive Metabolic Panel 06/22/18 06/23/18 Range/Units 04:40 04:40 Sodium 140 143 (136-145) meq/L Potassium 4.4 4.5 (3.5-5.1) meq/L Chloride 101 104 (98-107) meq/L Carbon Dioxide 27.6 28.1 (21.0-32.0) meq/L BUN 40 H 36 H (7-18) mg/dL Creatinine 2.33 H 2.19 H (0.60-1.30) mg/dL Calcium 9.0 8.6 (8.5-10.1) mg/dL Intake and Output 06/22/18 06/23/18 06/23/18 22:59 06:59 14:59 Intake Total 700 / 700 340 / 340 100 / 100 Output Total 850 / 850 450 / 450 Balance -150 / -150 -110 / -110 100 / 100 Intake: IV 100 / 100 100 / 100 100 / 100 Zosyn 4.5 GM Premix 4.5 gm In 100 / 100 100 / 100 100 / 100 100 ml @ 200 mls/hr IV.SIG Q8H [facility] Rx#:[id number] Oral 600 / 600 240 / 240 Output: Urine 850 / 850 450 / 450 Other: # Voids 3 Date of Last Bowel Movement 06/23/18 # Bowel Movements 1 Weight 69 kg Assessment and Plan - Assessment (1) Anterior myocardial infarction Code(s): I21.09 - ST elevation (STEMI) myocardial infarction involving other coronary artery of anterior wall Status: Acute (2) Acute systolic CHF (congestive heart failure) Code(s): I50.21 - Acute systolic (congestive) heart failure Status: Acute (3) Tobacco abuse Code(s): Z72.0 - Tobacco use Status: Acute (4) Cardiogenic shock Code(s): R57.0 - Cardiogenic shock Status: Acute (5) 2-vessel coronary artery disease Code(s): I25.10 - Atherosclerotic heart disease of [place] coronary artery without angina pectoris Status: Acute (6) Occlusion of LAD (left anterior descending) artery Code(s): I24.0 - Acute coronary thrombosis not resulting in myocardial infarction Status: Acute (7) Azotemia Code(s): R79.89 - Other specified abnormal findings of blood chemistry Status : Acute Plan: Improved. OK to DC home on furosemide and BB. No ACEI due to renal insufficiency. - Plan Condition has improved. BUN/creat are up - change diuretic to PO
--- NOTE | 2018-06-23 11:13 | P.PNIM ---
Physical Exam Vital signs: Vital Signs 06/22/18 12:00 06/22/18 13:00 06/22/18 13:45 Temperature 98.2 F Pulse Rate 83 74 Respiratory Rate 18 Blood Pressure 135/86 Pulse Oximetry 98 Pulse Oximetry [Exertion on Room Air] 97 Pulse Oximetry [Resting on Room Air] 98 06/22/18 14:00 06/22/18 15:00 06/22/18 16:00 Temperature 98.3 F Pulse Rate 80 71 85 Respiratory Rate 20 Blood Pressure 130/78 Pulse Oximetry 96 Pulse Oximetry [Exertion on Room Air] Pulse Oximetry [Resting on Room Air] 06/22/18 17:00 06/22/18 18:00 06/22/18 19:00 Temperature Pulse Rate 85 80 77 Respiratory Rate Blood Pressure Pulse Oximetry Pulse Oximetry [Exertion on Room Air] Pulse Oximetry [Resting on Room Air] 06/22/18 20:00 06/22/18 21:00 06/22/18 22:00 Temperature 98.7 F Pulse Rate 76 75 78 Respiratory Rate 18 Blood Pressure 143/83 H Pulse Oximetry 98 Pulse Oximetry [Exertion on Room Air] Pulse Oximetry [Resting on Room Air] 06/22/18 23:00 06/23/18 00:00 06/23/18 01:00 Temperature 97.8 F Pulse Rate 77 85 75 Respiratory Rate 16 Blood Pressure 101/62 Pulse Oximetry 98 Pulse Oximetry [Exertion on Room Air] Pulse Oximetry [Resting on Room Air] 06/23/18 02:00 06/23/18 03:00 06/23/18 04:00 Temperature 97.7 F Pulse Rate 78 79 83 Respiratory Rate 18 Blood Pressure 111/74 Pulse Oximetry 95 Pulse Oximetry [Exertion on Room Air] Pulse Oximetry [Resting on Room Air] 06/23/18 05:00 06/23/18 06:00 06/23/18 07:00 Temperature Pulse Rate 80 80 68 Respiratory Rate Blood Pressure Pulse Oximetry Pulse Oximetry [Exertion on Room Air] Pulse Oximetry [Resting on Room Air] 06/23/18 08:00 06/23/18 09:00 Temperature Pulse Rate 77 80 Respiratory Rate 18 Blood Pressure 128/72 Pulse Oximetry 97 Pulse Oximetry [Exertion on Room Air] Pulse Oximetry [Resting on Room Air] Intake & Output 06/22/18 06/23/18 06/23/18 18:59 06:59 18:59 Intake Total 800 / 800 340 / 340 100 / 100 Output Total 850 / 850 450 / 450 Balance -50 / -50 -110 / -110 100 / 100 Weight 69 kg Intake: IV 200 / 200 100 / 100 100 / 100 Zosyn 4.5 GM Premix 4.5 gm In 200 / 200 100 / 100 100 / 100 100 ml @ 200 mls/hr IV.SIG Q8H [facility] Rx#:[id number] Oral 600 / 600 240 / 240 Output: Urine 850 / 850 450 / 450 Other: # Voids 3 Date of Last Bowel Movement 06/23/18 # Bowel Movements 1 Narrative: GENERAL: AAOx3, no acute distress, thin SKIN: Warm and dry. HEAD: Atruamtic, normocephalic. EYES: No scleral icterus. NECK: Supple, trachea midline. No JVD. Normal thyroid. CARDIOVASCULAR: Regular rate and rhythm. No murmurs, gallops, or rubs. RESPIRATORY: Mostly clear, scattered congestion, history of smoking. No accessory muscle use. GASTROINTESTINAL: Abdomen soft, non-tender, nondistended, normal active bowel sounds MUSCULOSKELETAL: No cyanosis, or edema. NEURO: CN II-XII grossly intact, no focal deficits, no slurring of speech - Urinary Catheter Management Indwelling Urethral Catheter Cath placed during this visit: yes, but has since been removed by the nurse Reason for continuing: Decision to DC catheter Insertion date: 06/16/18 Removal date: 06/20/18 Removal time: 09:30 Results - Labs CBC & Chem 7: 06/21/18 03:33 06/23/18 04:40 Laboratory Results - last 24 hr 06/23/18 04:40 Sodium 143 Potassium 4.5 Chloride 104 Carbon Dioxide 28.1 Anion Gap 11 BUN 36 H Creatinine 2.19 H Estimated GFR 30 L Random Glucose 96 Calcium 8.6 Microbiology 06/19/18 13:20 Blood - Peripheral Aerobic Blood Culture - Preliminary No growth in 4 days 06/19/18 13:20 Blood - Peripheral Anaerobic Blood Culture - Preliminary No growth in 4 days 06/19/18 13:25 Blood - Peripheral Aerobic Blood Culture - Preliminary No growth in 4 days 06/19/18 13:25 Blood - Peripheral Anaerobic Blood Culture - Preliminary No growth in 4 days - Procedures Cardiac catheterization 06/16/2018 Intubation 06/16/2018 Assessment and Plan - Plan Anterior STEMI Acute systolic heart failure, heart catheterization revealed ejection fraction of 15-20% Diagonal 50%, left circumflex 100%, RCA 40%, failed LAD PCI Continue Lopressor 25 mg twice daily, lisinopril 10 mg twice daily, aspirin 81 mg daily Continue Lasix 40 mg IV twice daily Continue atorvastatin 10 mg daily for dyslipidemia Plan today is to work with physical therapy to see how he performs with walking , how far he can walk Appreciate cardiology following Acute respiratory failure secondary pleural effusions/pulmonary edema Continue supplemental oxygen to keep sats greater than 92%, sitting comfortably off of oxygen currently Continue duo nebs as needed, incentive spirometry Chest x-ray on 06/19 shows no significant change, small effusions and consolidation persist Oxygen walk test ordered for later today History of alcohol abuse Monitor per CIWA protocol Patient counseled to quit drinking Tobaccoism Patient counseled to quit tobacco use He states he will no longer smoke DVT Prophylaxis Heparin
== END 2018-06-23 11:08 | disposition home health service (06) ==
LOC: NEPC 06:42 → NEDA 07:05 → MERGE 07:05 → EDBD 07:05 → HCVI 07:21 → HCPC 06-20 10:23 → HCIS 06-22 19:00
PROVIDERS: ADMIT Hospitalist; ATTEND Hospitalist